=== PATIENT | male | born 1945 | race Caucasian/White ===

== ENCOUNTER → 2020-04-11 15:07 | Outpatient (CLI) | payer OTHER, SELFPAY ==
[2020-04-11 17:33] LABS: BUN Creatinine Ratio 18.8 (6-22); Blood Urea Nitrogen 22 mg/dL (9-20); Calcium 9.7 mg/dL (8.4-10.2); Carbon Dioxide 28 mmol/L (22-32); Chloride 104 mmol/L (98-107); Estimated Glomerular Filt Rate > 60.0 mL/min (>60); Glucose 99 mg/dL (80-110); HEMOLYSIS < 15 (0-50); Potassium 4.6 mmol/L (3.4-5.1); Sodium 138 mmol/L (137-145)
== END ==
PROVIDERS: Family Provider Family Medicine; PCP Family Medicine
DX: C43.9 Malignant melanoma of skin, unspecified (principal)
CPT/HCPCS: 36415; 80048

== ENCOUNTER 2020-10-12 10:53 | Inpatient (IN) | payer OTHER, MEDICARE, SELFPAY ==
[2020-10-12] VITALS (19 sets, daily range): BP systolic 103–136; BP diastolic 57–73; PULSE 78–94; RESP 8–24; TEMP 36.7; O2SAT 94–100; BMI 28.7
[2020-10-12 11:33] LABS: Add Manual Diff / Slide Review NO; Basophils Absolute Auto 0 /uL (0-100); Basophils Percent Auto 0.3 % (0-2); Eosinophils Absolute Auto 0 /uL (0-450); Eosinophils Percent Auto 0.4 % (2-4); Hematocrit 30.7 % (41-53); Hemoglobin 10.2 g/dL (13.5-17.5); Lymphocytes Absolute Auto 1200 /uL (1100-4500); Lymphocytes Percent Auto 14.3 % (25-40); Mean Corpuscular HGB Conc 33.3 % (30-36); Mean Corpuscular Hemoglobin 29.7 PG (26-34); Mean Corpuscular Volume 89.3 fL (80-100); Monocytes Absolute Auto 1000 /uL (0-900); Monocytes Percent Auto 11.9 % (3-14); Neutrophils Absolute Auto 6300 /uL (1500-7000); Neutrophils Percent Auto 73.1 % (50-75); Platelet Count 297 X10^3/uL (150-400); Red Blood Cell Count 3.44 X10^6/uL (4.5-5.9); White Blood Cell Count 8.7 X10^3/uL (4.5-11.0)
--- NOTE | 2020-10-12 11:34 | ED_ITS ---
HPI - GI Bleed General Chief complaint: GI Bleed Stated complaint: stool dark/blood in it Time Seen by Provider: 10/12/20 11:26 Source: patient Mode of arrival: Ambulatory Limitations: no limitations History of Present Illness HPI Narrative: Patient is a 75-year-old male with history of metastatic melanoma currently on immunotherapy in followed by [facility]. Apparently he has been on this immunotherapy for about 2 years, this particular therapy can cause colitis and GI bleeding. This morning at about midnight he had a very large bloody bowel movement. He said that he has had a couple since then but they have tapered off. He denies any abdominal pain dizziness. He is a little short of breath with exertion. He has no chest pain. MD complaint: gross hematochezia Onset (ago): hour(s) Severity: moderate Relieving factors: none Exacerbating factors: none Related Data Home Medications Medication Instructions Recorded Confirmed naproxen sodium [Aleve] 220 mg PO PRN #0 02/12/11 10/12/20 aspirin 81 mg tablet,delayed 81 mg PO DAILY 10/11/20 10/12/20 release cevimeline 30 mg capsule 1 cap PO TID cap 10/11/20 10/12/20 fluoride (sodium) 1.1 % dental gel 1 applic PO BEDTIME g 10/11/20 10/12/20 levothyroxine 125 mcg tablet 125 mcg PO DAILY 10/11/20 10/12/20 Previous Rx's Medication Instructions Recorded atorvastatin 10 mg tablet 10 mg PO HS #30 tab 09/30/20 Allergies Allergy/AdvReac Type Severity Reaction Status Date / Time No Known Drug Allergies Allergy Verified 10/12/20 11:04 Review of Systems Review of Systems ROS Unobtainable: All systems reviewed & are unremarkable except as noted in HPI and below Constitutional Constitutional: Denies chills, Denies fever(s), Denies lethargy and Denies weakness Cardiovascular Cardiovascular: Denies chest pain, Denies irregular heart rhythm, Denies lightheadedness, Denies palpitations, Reports dyspnea on exertion and Denies orthopnea Respiratory Respiratory: Denies cough, Denies hemoptysis and Reports dyspnea on exertion Gastrointestinal Gastrointestinal: Denies abdominal pain, Denies change in bowel habits, Denies diarrhea, Denies nausea and Denies vomiting Musculoskeletal Musculoskeletal: Denies as per HPI and Denies back pain Integumentary/Breasts Skin/Breast: Denies pruritus, Denies erythema, Denies rash and Denies wounds Neurologic Neurologic: Denies abnormal movements and Denies weakness Endocrine Endocrine: Denies palpitations 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) 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) Melanoma Mixed hyperlipidemia (08/14/15) Surgical History H/O melanoma excision Social History household members: spouse Smoking Status: Former smoker alcohol intake: never Smoking Status: Former smoker alcohol intake frequency: holidays/special occasions only Substance Use Type: does not use Exam Initial Vital Signs Initial Vital Signs: Vital Signs Temperature 98.1 F 10/12/20 11:00 Pulse Rate 87 10/12/20 11:00 Respiratory Rate 12 10/12/20 11:00 Blood Pressure 120/66 10/12/20 11:00 Pulse Oximetry 100 10/12/20 11:00 GENERAL: Alert pleasant 75-year-old male and in no acute distress. HEENT: Head atraumatic,EOMI, pupils reactive, face symmetric, moist mucous membranes CARDIOVASCULAR: Regular rate and rhythm without murmurs, rubs or gallops. RESPIRATORY: Breath sounds equal bilaterally, no wheezes rales or rhonchi. ABDOMEN: Soft, nontender. Normoactive bowel sounds all 4 quadrants. No guarding or rebound. RECTAL: Hemoccult-positive gross blood on exam : No CVA tenderness EXTREMITIES: Normal range of motion, no clubbing or edema. Neurovascularly intact NEUROLOGICAL: Alert and oriented x4.Normal gait and speech. SKIN: Warm, dry, no laceration, no petechiae, no rashes or lesions. Course Orders Ordered: ED Orders 10/12/20 11:03 EKG-12 Lead Stat 10/12/20 11:20 Complete Blood Count AUTO DIFF Stat Comprehensive Metabolic Panel Stat Lactate (Lactic Acid) Stat Partial Thromboplastin Time Stat Prothrombin Time INR Stat 10/12/20 12:35 COVID19 - ADMIT (QUALITY ASSURANCE REPRESENTATIVE swab/PCR) Stat Acetaminophen (Acetaminophen 325 Mg Tablet) 650 mg PO Q6HR PRN PRN Reason: Fever/Mild Pain (1-3) Levothyroxine Sodium (Levothyroxine 125 Mcg Tablet) 125 mcg PO DAILY SHANNON Melatonin (Melatonin 3 Mg Tablet) 3 mg PO BEDTIME PRN PRN Reason: sleep Naloxone HCl (Naloxone 0.4 Mg/Ml Vial) 0.2 mg IV Q2MIN PRN PRN Reason: Opiate Reversal Non-Formulary Medication (Atorvastatin [Lipitor]) 10 mg PO HS SHANNON Non-Formulary Medication (Cevimeline) 1 cap PO TID SHANNON Oxycodone HCl (Oxycodone Ir 5 Mg Tablet) 5 mg PO Q6HR PRN PRN Reason: Pain, Moderate (4-6) Discontinued Medications Melatonin (Melatonin 3 Mg Tablet) 3 mg PO BEDTIME PRN PRN Reason: Sleep Pantoprazole Sodium (Pantoprazole 40 Mg Vial) 40 mg IV NOW ONE Stop: 10/12/20 12:23 Last Admin: 10/12/20 12:36 Dose: 40 mg Documented by: DAQUAN Vital Signs Vital signs: Vital Signs - 8 hr 10/12/20 11:00 10/12/20 11:02 10/12/20 11:25 Temperature 98.1 F Pulse Rate 87 86 85 Respiratory Rate 12 8 L 11 L Blood Pressure 120/66 136/69 Pulse Oximetry 100 100 99 10/12/20 11:30 10/12/20 12:00 10/12/20 12:30 Temperature Pulse Rate 91 H 85 83 Respiratory Rate 22 16 Blood Pressure 135/73 110/60 Pulse Oximetry 99 99 98 10/12/20 12:41 10/12/20 13:00 Temperature Pulse Rate 82 84 Respiratory Rate Blood Pressure 114/65 112/57 L Pulse Oximetry 100 97 MDM - GI Bleed Lab Data Attestation: I reviewed the patient's lab results. Result diagrams: 10/12/20 11:20 10/12/20 11:20 Labs: Lab Results 10/12/20 10/12/20 10/12/20 Range/Units 11:20 11:20 11:20 WBC 8.7 (4.5-11.0) X10^3/uL RBC 3.44 L (4.5-5.9) X10^6/uL Hgb 10.2 L (13.5-17.5) g/dL Hct 30.7 L (41-53) % MCV 89.3 (80-100) fL MCH 29.7 (26-34) PG MCHC 33.3 (30-36) % RDW 14.0 (11.6-14.8) % Plt Count 297 (150-400) X10^3/uL Neut % (Auto) 73.1 (50-75) % Lymph % (Auto) 14.3 L (25-40) % [place] % (Auto) 11.9 (3-14) % Eos % (Auto) 0.4 L (2-4) % Baso % (Auto) 0.3 (0-2) % Neut # (Auto) 6300 (9696-1644) /uL Lymph # (Auto) 1200 (1408-6933) /uL [place] # (Auto) 1000 H (0-900) /uL Eos # (Auto) 0 (0-450) /uL Baso # (Auto) 0 (0-100) /uL PT 12.3 (10.1-12.7) SECONDS INR 1.1 (0.9-1.3) APTT 29 (26.4-36.2) SECONDS Sodium 140 (137-145) mmol/L Potassium 4.5 (3.4-5.1) mmol/L Chloride 111 H (98-107) mmol/L Carbon Dioxide 22 (22-32) mmol/L BUN 33 H (9-20) mg/dL Creatinine 1.11 (0.66-1.25) mg/dL Estimated GFR > 60.0 (>60) mL/min BUN/Creatinine Ratio 29.7 H (6-22) Glucose 139 H (80-110) mg/dL Lactate (0.7-2.1) mmol/L Calcium 8.3 L (8.4-10.2) mg/dL Total Bilirubin 0.1 L (0.2-1.3) mg/dL AST 15 L (17-59) IU/L ALT 11 (<50) IU/L Alkaline Phosphatase 78 (38-126) U/L Total Protein 5.8 L (6.3-8.2) g/dL Albumin 3.2 L (3.5-5.0) g/dL Globulin 2.6 (1.7-4.1) g/dL Albumin/Globulin Ratio 1.2 (1.0-2.8) SARS-CoV-2 (PCR) (Negative) 10/12/20 10/12/20 Range/Units 11:20 12:35 WBC (4.5-11.0) X10^3/uL RBC (4.5-5.9) X10^6/uL Hgb (13.5-17.5) g/dL Hct (41-53) % MCV (80-100) fL MCH (26-34) PG MCHC (30-36) % RDW (11.6-14.8) % Plt Count (150-400) X10^3/uL Neut % (Auto) (50-75) % Lymph % (Auto) (25-40) % [place] % (Auto) (3-14) % Eos % (Auto) (2-4) % Baso % (Auto) (0-2) % Neut # (Auto) (0872-9014) /uL Lymph # (Auto) (2099-5551) /uL [place] # (Auto) (0-900) /uL Eos # (Auto) (0-450) /uL Baso # (Auto) (0-100) /uL PT (10.1-12.7) SECONDS INR (0.9-1.3) APTT (26.4-36.2) SECONDS Sodium (137-145) mmol/L Potassium (3.4-5.1) mmol/L Chloride (98-107) mmol/L Carbon Dioxide (22-32) mmol/L BUN (9-20) mg/dL Creatinine (0.66-1.25) mg/dL Estimated GFR (>60) mL/min BUN/Creatinine Ratio (6-22) Glucose (80-110) mg/dL Lactate 1.2 (0.7-2.1) mmol/L Calcium (8.4-10.2) mg/dL Total Bilirubin (0.2-1.3) mg/dL AST (17-59) IU/L ALT (<50) IU/L Alkaline Phosphatase (38-126) U/L Total Protein (6.3-8.2) g/dL Albumin (3.5-5.0) g/dL Globulin (1.7-4.1) g/dL Albumin/Globulin Ratio (1.0-2.8) SARS-CoV-2 (PCR) Negative (Negative) Urine Dip Bedside Urine Glucose Negative Bedside Urine Bilirubin ++ 2 Bedside Urine Ketone - Negative Urine Specific [place] 1.030 Bedside Urine Occult Blood - Negative Bedside Urine pH 6.0 Bedside Urine Protein - Negative Bedside Urine Urobilinogen - Negative Bedside Urine Nitrite - Negative Bedside Urine Leukocytes - Negative Esterase Imaging Data CT scan - abdomen/pelvis: Radiologist's Impression: PROCEDURE: CT ABDOMEN PELVIS W CON INDICATIONS: gi bleed TECHNIQUE: After the administration of intravenous contrast, 5 mm thick sections acquired from the diaphragm to the symphysis. 5 mm coronal and sagittal reformats were acquired. For radiation dose reduction, the following was used: automated exposure control, adjustment of mA and/or kV according to patient size. COMPARISON: None. FINDINGS: Image quality: Excellent. ABDOMEN: Lung bases: Mild bibasilar dependent atelectasis is seen. Heart size is mildly enlarged, no pericardial effusion. Solid organs: Liver is normal in size . Subtle 5 millimeter hypodensity involving left hepatic lobe series 2, image 28 and is too small to characterize. Mild hepatic steatosis is seen. Gallbladder is within normal limits. Biliary system is non dilated. Pancreas enhances normally. Spleen is normal in size and enhancement. There is suggestion of a 1.7 x 1.1 cm left adrenal nodule series 2, image 36. No right adrenal nodules. Kidneys demonstrate normal size and enhancement, without hydronephrosis. Tiny 3 millimeter nonobstructing stone in midpole of left kidney is seen. Peritoneum and bowel: There is no bowel obstruction. No gastric or small bowel wall thickening. Appendix is visualized and is within normal limits. Ascending, transverse and descending colon show normal wall thickness. There is mild diffuse sigmoid colon wall thickening which may be due to under distension. Low-grade sigmoid colitis cannot be excluded. No CT evidence of diverticulitis. No abscess collection. Nodes and vessels: No retroperitoneal or mesenteric adenopathy by size criteria. Aorta and inferior vena cava are normal in size. Moderate atherosclerotic calcifications are noted in abdominal aorta. Miscellaneous: No ventral hernias. PELVIS: Genitourinary: Bladder wall thickness is normal. Miscellaneous: Right inguinal hernia is seen containing fat only. No inguinal lymphadenopathy. Bones: No suspicious bony lesions. No vertebral body compression fractures. IMPRESSION: 1. Questionable mild diffuse sigmoid colon wall thickening which may be due to under distension. Low-grade sigmoid colitis cannot be excluded. No CT evidence of acute diverticulitis. Normal appendix. No bowel obstruction. No abscess collection. No free fluid or free air. 2. 1.7 x 1.1 centimeter left adrenal nodule which may represent adrenal adenoma. 3. 5 millimeter hypodensity involving left hepatic lobe and is too small to yissel racterize, most likely represent benign process such as cyst or hemangioma. Mild hepatic steatosis. 4. Tiny nonobstructing left renal calculus. No hydronephrosis. Dictated by: Chaparro Barnett M.D. on 10/12/2020 at 16:53 MDM Narrative Medical decision making narrative: 12:22pm-Dr. Black surgery updated patient's symptoms test results initially accepted if medicine was okay 1245pm Dr. Gracia updated on patient's symptoms and test results concerned for immunotherapy induced colitis. 1600-Dr. Baird Hematology-Oncology at [facility] has been updated patient's symptoms test results and review chart himself. At this time he does not believe this rectal bleeding to be immunotherapy induced. Typically immunotherapy induced colitis starts with episodes of diarrhea in severe pain. He says he often even see colitis on CT. He says grade drawn colitis which is less than 4 bowel movements in 1 day is treated with supportive care. Grade 2 which is more than 4 bowel movements in 24 hours can be treated with steroids 1 milligram/kilogram. However at this time patient does not have any of the symptoms and does not need to be transferred. 1700 Dr. Black updated on Hematology-Oncology recommendations and agrees for colonoscopy and recommends bowel prepping 1715 Dr. Gracia updated on recommendations and agrees to admission At this time patient has continues to be asymptomatic he has been in the emergency department for close to 7 hours without any further episodes of rectal bleeding. He is hemodynamically stable. He continues to have no abdominal pain. CT is added there is no evidence of colitis on the CT. At this time patient will be admitted for GI bleed Discharge Plan Departure Patient Disposition: Admitted as Observation Clinical Impression: Acute GI bleeding Admit Date/Time: 10/12/20 13:04 Admit Provider: Josef Gracia
[2020-10-12 11:48] LABS: INR 1.1 (0.9-1.3); Prothrombin Time 12.3 SECONDS (10.1-12.7)
[2020-10-12 11:51] LABS: PTT Partial Thromboplastin Tim 29 SECONDS (26.4-36.2)
[2020-10-12 11:56] LABS: Alanine Aminotransferase 11 IU/L (<50); Albumin 3.2 g/dL (3.5-5.0); Albumin Globulin Ratio 1.2 (1.0-2.8); Alkaline Phosphatase 78 U/L (38-126); Aspartate Aminotransferase 15 IU/L (17-59); BUN Creatinine Ratio 29.7 (6-22); Bilirubin Total 0.1 mg/dL (0.2-1.3); Blood Urea Nitrogen 33 mg/dL (9-20); Calcium 8.3 mg/dL (8.4-10.2); Carbon Dioxide 22 mmol/L (22-32); Chloride 111 mmol/L (98-107); Estimated Glomerular Filt Rate > 60.0 mL/min (>60); Globulin 2.6 g/dL (1.7-4.1); Glucose 139 mg/dL (80-110); HEMOLYSIS < 15 (0-50); Potassium 4.5 mmol/L (3.4-5.1); Sodium 140 mmol/L (137-145); Total Protein 5.8 g/dL (6.3-8.2)
[2020-10-12 11:57] LABS: Lactate (Lactic Acid) 1.2 mmol/L (0.7-2.1)
[2020-10-12] MEDS: PANTOPRAZOLE 40 MG VIAL IV (12:36)
[2020-10-12 14:02] LABS: COVID19 - ADMIT (NP swab/PCR) Negative (Negative)
--- NOTE | 2020-10-12 16:05 | DI.CT.S_ITS ---
PROCEDURE: CT ABDOMEN PELVIS W CON INDICATIONS: gi bleed TECHNIQUE: After the administration of intravenous contrast, 5 mm thick sections acquired from the diaphragm to the symphysis. 5 mm coronal and sagittal reformats were acquired. For radiation dose reduction, the following was used: automated exposure control, adjustment of mA and/or kV according to patient size. COMPARISON: None. FINDINGS: Image quality: Excellent. ABDOMEN: Lung bases: Mild bibasilar dependent atelectasis is seen. Heart size is mildly enlarged, no pericardial effusion. Solid organs: Liver is normal in size . Subtle 5 millimeter hypodensity involving left hepatic lobe series 2, image 28 and is too small to characterize. Mild hepatic steatosis is seen. Gallbladder is within normal limits. Biliary system is non dilated. Pancreas enhances normally. Spleen is normal in size and enhancement. There is suggestion of a 1.7 x 1.1 cm left adrenal nodule series 2, image 36. No right adrenal nodules. Kidneys demonstrate normal size and enhancement, without hydronephrosis. Tiny 3 millimeter nonobstructing stone in midpole of left kidney is seen. Peritoneum and bowel: There is no bowel obstruction. No gastric or small bowel wall thickening. Appendix is visualized and is within normal limits. Ascending, transverse and descending colon show normal wall thickness. There is mild diffuse sigmoid colon wall thickening which may be due to under distension. Low-grade sigmoid colitis cannot be excluded. No CT evidence of diverticulitis. No abscess collection. Nodes and vessels: No retroperitoneal or mesenteric adenopathy by size criteria. Aorta and inferior vena cava are normal in size. Moderate atherosclerotic calcifications are noted in abdominal aorta. Miscellaneous: No ventral hernias. PELVIS: Genitourinary: Bladder wall thickness is normal. Miscellaneous: Right inguinal hernia is seen containing fat only. No inguinal lymphadenopathy. Bones: No suspicious bony lesions. No vertebral body compression fractures. IMPRESSION: 1. Questionable mild diffuse sigmoid colon wall thickening which may be due to under distension. Low-grade sigmoid colitis cannot be excluded. No CT evidence of acute diverticulitis. Normal appendix. No bowel obstruction. No abscess collection. No free fluid or free air. 2. 1.7 x 1.1 centimeter left adrenal nodule which may represent adrenal adenoma. 3. 5 millimeter hypodensity involving left hepatic lobe and is too small to characterize, most likely represent benign process such as cyst or hemangioma. Mild hepatic steatosis. 4. Tiny nonobstructing left renal calculus. No hydronephrosis. Dictated by: Chaparro Barnett M.D. on 10/12/2020 at 16:53 Approved by: Chaparro Barnett M.D. on 10/12/2020 at 16:57
--- NOTE | 2020-10-12 17:48 | P.HP_ITS ---
History of Present Illness History of Present Illness Date Patient Seen: 10/12/20 Time Patient Seen: 18:53 Chief complaint: stool dark/blood in it Narrative: 75-year-old male metastatic melanoma lymphoma history hyperlipidemia hypothyroidism presents to the emergency department with acute gastrointestinal bleeding. Patient states he has never had rectal bleeding before in his entire life. Last night in the evening. He had a bowel movement with dark bloody sto ols. He says it is quite a lot. Had a number of more throughout the evening at about 1:00 a.m. they seem to stop. He says he became a little bit tell. Since then he has been a little bit lightheaded when he stands up. He was concerned enough that he came to the emergency department. Says the bleeding was painless. He thought maybe was is livers kidneys. He was not sure what was going on. Patient states that he is not associated with pain with it. He is not nauseated. Patient does not have heartburn. He does not take regular anti- inflammatories such as aspirin ibuprofen Motrin early. Patient takes a baby aspirin a day. Patient said the bleeding was associated with the diarrhea as well. Had no fevers or chills. Other than feeling weak with standing he has had no chest pain or shortness of breath. Patient states his last colonoscopy was 10 or 12 years ago had 1 scheduled but then got diagnosed with melanoma and postponed. He has never had an upper endoscopy. He says he does not take antacids on a regular basis. He is on a monoclonal antibody for treatment of his melanoma which is an infusion Nivolumab. He did mention that maybe this is causes colitis. On looking this medication up I do not see this listed as 1 of the serious side effects of it. Reviewed his emergency room course CT scans and laboratory tests he does not have a fever and he does not have a white blood cell count. He has mild sigmoid thickening. Which may be consistent more with colitis. 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) 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) Melanoma Mixed hyperlipidemia (08/14/15) Surgical History H/O melanoma excision Family & Social History Safety & Behavioral: Feels Safe in Current Yes Environment Been Physically Hurt or No Threatened By a Person Tobacco & Substance use: Smoking Status Former smoker alcohol intake frequency holiday/special occasion Substance Use Type does not use Meds Home Medications and Allergies Home Medications Medication Instructions Recorded Confirmed Type naproxen sodium [Aleve] 220 mg PO PRN #0 02/12/11 10/12/20 History atorvastatin 10 mg tablet 10 mg PO HS #30 tab 09/30/20 10/12/20 Rx aspirin 81 mg tablet,delayed 81 mg PO DAILY 10/11/20 10/12/20 History release cevimeline 30 mg capsule 1 cap PO TID cap 10/11/20 10/12/20 History fluoride (sodium) 1.1 % dental gel 1 applic PO BEDTIME g 10/11/20 10/12/20 History levothyroxine 125 mcg tablet 125 mcg PO DAILY 10/11/20 10/12/20 History Allergies Allergy/AdvReac Type Severity Reaction Status Date / Time No Known Drug Allergies Allergy Verified 10/12/20 11:04 Exam Vital Signs (past 8 hours): - 10/12/20 11:00 10/12/20 11:02 10/12/20 11:25 Temperature 98.1 F Pulse Rate 87 86 85 Respiratory Rate 12 8 L 11 L Blood Pressure 120/66 136/69 Pulse Oximetry 100 100 99 10/12/20 11:30 10/12/20 12:00 10/12/20 12:30 Temperature Pulse Rate 91 H 85 83 Respiratory Rate 22 16 Blood Pressure 135/73 110/60 Pulse Oximetry 99 99 98 10/12/20 12:41 10/12/20 13:00 10/12/20 13:30 Temperature Pulse Rate 82 84 86 Respiratory Rate 24 Blood Pressure 114/65 112/57 L 121/65 Pulse Oximetry 100 97 94 10/12/20 14:00 10/12/20 14:30 10/12/20 15:00 Temperature Pulse Rate 80 79 78 Respiratory Rate 17 20 Blood Pressure 123/64 103/59 L Pulse Oximetry 99 99 94 10/12/20 15:30 10/12/20 16:00 10/12/20 16:30 Temperature Pulse Rate 86 87 90 Respiratory Rate 21 21 13 Blood Pressure 115/59 L 116/57 L Pulse Oximetry 95 96 99 10/12/20 17:00 Temperature Pulse Rate 92 H Respiratory Rate Blood Pressure Pulse Oximetry 97 Oxygen Delivery Method Room Air Narrative Exam Narrative: Gen.: Alert good historian he is somewhat pale looking HEENT: Pupils equal round and reactive or mucosa is moist Cardio: S1-S2 regular rate and rhythm Respiratory: Normal respiratory effort her lungs are clear Abdomen: Soft nontender no rebound or guarding no liver spleen enlargement no appreciable hernias Extremities: Full range of motion no appreciable weakness no cyanosis or edema. Neurologic: Grossly intact. Objective Labs Result Diagrams: 10/12/20 11:20 10/12/20 11:20 Labs: Laboratory Results - last 24 hr 10/12/20 10/12/20 10/12/20 11:20 11:20 11:20 WBC 8.7 RBC 3.44 L Hgb 10.2 L Hct 30.7 L MCV 89.3 MCH 29.7 MCHC 33.3 RDW 14.0 Plt Count 297 Neut % (Auto) 73.1 Lymph % (Auto) 14.3 L [place] % (Auto) 11.9 Eos % (Auto) 0.4 L Baso % (Auto) 0.3 Neut # (Auto) 6300 Lymph # (Auto) 1200 [place] # (Auto) 1000 H Eos # (Auto) 0 Baso # (Auto) 0 PT 12.3 INR 1.1 APTT 29 Sodium 140 Potassium 4.5 Chloride 111 H Carbon Dioxide 22 BUN 33 H Creatinine 1.11 Estimated GFR > 60.0 BUN/Creatinine Ratio 29.7 H Glucose 139 H Lactate Calcium 8.3 L Total Bilirubin 0.1 L AST 15 L ALT 11 Alkaline Phosphatase 78 Total Protein 5.8 L Albumin 3.2 L Globulin 2.6 Albumin/Globulin Ratio 1.2 SARS-CoV-2 (PCR) 10/12/20 10/12/20 11:20 12:35 WBC RBC Hgb Hct MCV MCH MCHC RDW Plt Count Neut % (Auto) Lymph % (Auto) [place] % (Auto) Eos % (Auto) Baso % (Auto) Neut # (Auto) Lymph # (Auto) [place] # (Auto) Eos # (Auto) Baso # (Auto) PT INR APTT Sodium Potassium Chloride Carbon Dioxide BUN Creatinine Estimated GFR BUN/Creatinine Ratio Glucose Lactate 1.2 Calcium Total Bilirubin AST ALT Alkaline Phosphatase Total Protein Albumin Globulin Albumin/Globulin Ratio SARS-CoV-2 (PCR) Negative Assessment & Plan Assessment & Plan narrative: Acute gastrointestinal bleed. Patient with thick dark red gastrointestinal blood. He is mildly anemic. Unsure etiology at this point clear liquid diet. Surgical consultation for evaluation with potential EGD and colonoscopy. He has thickening mildly on his colon. I would like to do stool culture O and P and GI panel to rule out infectious etiologies he does not have a white blood cell count or fever. Certainly could be a side effect from his monoclonal antibody treatment for his metastatic melanoma although I have not reading this on the side effect profile. He will be placed on a clear liquid diet. He will have hemoglobin hematocrit checked regularly. He will be typed and screened. We will continue to monitor closely his vitals and worsening of his gastrointestinal bleeding. Acute blood loss anemia. Patient hemoglobin hematocrit is low. He has not had further bleeding since evaluation in the emergency department for about 8 hours. Check hemoglobin hematocrit. Type and screen. He is mildly symptomatic with some lightheadedness. Metastatic melanoma. On immunotherapy. Hyperlipidemia. Patient is currently on a statin we will continue statin medication. Hypothyroidism. Patient will be continued on his thyroid medication. Prophylactic. Patient will be and DVT prophylaxis with SCDs.
[2020-10-12] MEDS: ATORVASTATIN 20 MG TABLET 10 MG PO (20:43)
[2020-10-13] VITALS (15 sets, daily range): BP systolic 101–146; BP diastolic 40–92; PULSE 71–97; RESP 12–22; TEMP 36.1–37; O2SAT 90–98
--- NOTE | 2020-10-13 | PATH_ITS ---
[facility] Accession Number: [id number] . 01 Material submitted: . gastrointestinal site - GASTRIC BIOPSY . 01 Clinical history: . A: R/O H.PYLORI . 02 Diagnosis: Gastric Biopsy: Portions of gastric antral mucosa with chronic gastritis. Negative for Helicobacter organisms by immunohistochemistry. Negative for intestinal metaplasia. Negative for dysplasia and malignancy. MRV 10/18/2020 1232 Local . 02 Electronically signed: . Abby Chiang MD, Pathologist NPI- [id number] . 01 Gross description: . GASTRIC BIOPSY: Received in formalin are 2 fragment(s) of avila, soft tissue measuring 0.2 x 0.2 x 0.2 cm to 0.4 x 0.2 x 0.2 cm submitted entirely in 1 cassette(s) /ENDY 10/15/2020 1931 Local . 02 Microscopic: . An immunohistochemical stain was performed to evaluate for Helicobacter organisms and is negative. The control stain showed appropriate reactivity. . * This test was developed and its performance characteristics determined by [facility]. It has not been cleared or approved by the U.S. Food and Drug Administration. The FDA has determined that such clearance or approval is not necessary. This test is used for clinical purposes. It should not be regarded as investigational or for research. . 02 Pathologist provided ICD-10: K29.70 . 02 CPT . 971334, [id number] Performed at: 01 [facility] [address] [facility], [place], [place] [id number] MD Clark Baez MD Phone: [phone] Performed at: 02 [facility] [place] [address] [place], [place] [id number] MD Ayse Lowery MD Phone: [phone]
--- NOTE | 2020-10-13 00:44 | PC.NURSE ---
patient is alert and oriented. Breath sounds CTA with RA sat of 96% and denies SOB. HRR w/murmur. Telemetry reading was SR w/BBB. Denies nausea. BT present and abdomen is soft and non tender; has had no bleeding/stools since admission to floor. Denies dysuria, frequency or urgency with urination. Is able to turn self in bed. Denies weakness when out of bed but does state he has felt dizzy/lightheaded when up so verbalizes agreement to call for assistance when needing to get out of bed; evening RN reports compliance with using call light for assist. Denies pain. Wearing bilateral calf SCD's. Informed that Dr Black called earlier and plan is to start Go-Lytely prep at 0400 and will be NPO except for bowel prep at that time in anticipation of scope later today; patient verbalizes understanding. Fall risk score is moderate.
[2020-10-13] MEDS: PEG3350/SOD SULF,BICARB,CL/KCL 4,000 ML SOLUTION 3000 ML PO (04:00)
[2020-10-13 05:10] LABS: Add Manual Diff / Slide Review NO; Basophils Absolute Auto 0 /uL (0-100); Basophils Percent Auto 0.6 % (0-2); Eosinophils Absolute Auto 200 /uL (0-450); Eosinophils Percent Auto 2.5 % (2-4); Hematocrit 27.8 % (41-53); Hemoglobin 9.3 g/dL (13.5-17.5); Lymphocytes Absolute Auto 1600 /uL (1100-4500); Lymphocytes Percent Auto 20.8 % (25-40); Mean Corpuscular HGB Conc 33.4 % (30-36); Mean Corpuscular Hemoglobin 29.9 PG (26-34); Mean Corpuscular Volume 89.4 fL (80-100); Monocytes Absolute Auto 1000 /uL (0-900); Monocytes Percent Auto 13.4 % (3-14); Neutrophils Absolute Auto 4900 /uL (1500-7000); Neutrophils Percent Auto 62.7 % (50-75); Platelet Count 267 X10^3/uL (150-400); Red Cell Distribution Width 14.4 % (11.6-14.8); White Blood Cell Count 7.8 X10^3/uL (4.5-11.0)
[2020-10-13 05:38] LABS: BUN Creatinine Ratio 29.1 (6-22); Blood Urea Nitrogen 30 mg/dL (9-20); Calcium 8.4 mg/dL (8.4-10.2); Carbon Dioxide 23 mmol/L (22-32); Chloride 110 mmol/L (98-107); Estimated Glomerular Filt Rate > 60.0 mL/min (>60); Glucose 123 mg/dL (80-110); HEMOLYSIS < 15 (0-50); Potassium 4.4 mmol/L (3.4-5.1); Sodium 139 mmol/L (137-145)
--- NOTE | 2020-10-13 07:50 | P.HP_ITS ---
History of Present Illness History of Present Illness Date Patient Seen: 10/13/20 Time Patient Seen: 07:53 Chief complaint: stool dark/blood in it Narrative: The patient is a gentleman here with rectal bleeding. He has been passing brown stool with blood in it. It is dark in color but not melanotic (black). He has no abdominal pain. He describes passing what looks like red velvet cake this morning with bowel prep. No prior history of these problems. He is on an immunotherapy for metastatic melanoma which involves his chest at least. He is not sure all the places that is metastatic to. He said he had a good response but has a new spot that appeared but he does not remember where. 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) 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) Melanoma Mixed hyperlipidemia (08/14/15) Surgical History H/O melanoma excision Family & Social History Social History: household members spouse Prior Living Arrangements House Safety & Behavioral: Feels Safe in Current Yes Environment Been Physically Hurt or No Threatened By a Person Suicidal Ideation Description None Suicide Plan Description No Plan Tobacco & Substance use: Smoking Status Former smoker alcohol intake never alcohol intake frequency holiday/special occasion Substance Use Type does not use Meds Home Medications and Allergies Home Medications Medication Instructions Recorded Confirmed Type naproxen sodium [Aleve] 220 mg PO PRN #0 02/12/11 10/12/20 History atorvastatin 10 mg tablet 10 mg PO HS #30 tab 09/30/20 10/12/20 Rx aspirin 81 mg tablet,delayed 81 mg PO DAILY 10/11/20 10/12/20 History release cevimeline 30 mg capsule 1 cap PO TID cap 10/11/20 10/12/20 History fluoride (sodium) 1.1 % dental gel 1 applic PO BEDTIME g 10/11/20 10/12/20 History levothyroxine 125 mcg tablet 125 mcg PO DAILY 10/11/20 10/12/20 History Allergies Allergy/AdvReac Type Severity Reaction Status Date / Time No Known Drug Allergies Allergy Verified 10/12/20 11:04 Review of Systems Review of Systems Narrative: No cough cold or asthma. No chest pain or heart problems. No black bowel movements. No hematemesis. No seizures or blackouts. Probably been 20 years since his last colonoscopy. Exam Vital Signs (past 8 hours): - 10/13/20 00:13 10/13/20 04:24 Temperature 98.4 F 97.0 F L Pulse Rate 91 H 80 Respiratory Rate 18 18 Blood Pressure 110/55 L 120/59 L Pulse Oximetry 96 98 Oxygen Delivery Method Room Air Oxygen Flow Rate 0 Narrative Exam Narrative: Cooperative in no apparent distress. Eyes are nonicteric. Oral mucosa is pink little dry no open lesions. Teeth are intact. I do not feel any nodes in the neck or supraclavicular areas. Lungs are clear to auscultation without rales or rhonchi. Heart regular rate and rhythm. He has a 3/6 systolic murmur heard well at the base. No heave lift or thrill. 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 No palpable masses. Patient is alert and oriented x3. Speech rate and content are appropriate. Affect is appropriate. Objective Labs Result Diagrams: 10/13/20 04:52 10/13/20 04:52 Labs: Laboratory Results - last 24 hr 10/12/20 10/12/20 10/12/20 11:20 11:20 11:20 WBC 8.7 RBC 3.44 L Hgb 10.2 L Hct 30.7 L MCV 89.3 MCH 29.7 MCHC 33.3 RDW 14.0 Plt Count 297 Neut % (Auto) 73.1 Lymph % (Auto) 14.3 L [place] % (Auto) 11.9 Eos % (Auto) 0.4 L Baso % (Auto) 0.3 Neut # (Auto) 6300 Lymph # (Auto) 1200 [place] # (Auto) 1000 H Eos # (Auto) 0 Baso # (Auto) 0 PT 12.3 INR 1.1 APTT 29 Sodium 140 Potassium 4.5 Chloride 111 H Carbon Dioxide 22 BUN 33 H Creatinine 1.11 Estimated GFR > 60.0 BUN/Creatinine Ratio 29.7 H Glucose 139 H Lactate Calcium 8.3 L Total Bilirubin 0.1 L AST 15 L ALT 11 Alkaline Phosphatase 78 Total Protein 5.8 L Albumin 3.2 L Globulin 2.6 Albumin/Globulin Ratio 1.2 SARS-CoV-2 (PCR) Blood Type Antibody Screen 10/12/20 10/12/20 10/12/20 11:20 11:20 12:35 WBC RBC Hgb Hct MCV MCH MCHC RDW Plt Count Neut % (Auto) Lymph % (Auto) [place] % (Auto) Eos % (Auto) Baso % (Auto) Neut # (Auto) Lymph # (Auto) [place] # (Auto) Eos # (Auto) Baso # (Auto) PT INR APTT Sodium Potassium Chloride Carbon Dioxide BUN Creatinine Estimated GFR BUN/Creatinine Ratio Glucose Lactate 1.2 Calcium Total Bilirubin AST ALT Alkaline Phosphatase Total Protein Albumin Globulin Albumin/Globulin Ratio SARS-CoV-2 (PCR) Negative Blood Type B Positive Antibody Screen Negative 10/13/20 10/13/20 04:52 04:52 WBC 7.8 RBC 3.10 L Hgb 9.3 L Hct 27.8 L MCV 89.4 MCH 29.9 MCHC 33.4 RDW 14.4 Plt Count 267 Neut % (Auto) 62.7 Lymph % (Auto) 20.8 L [place] % (Auto) 13.4 Eos % (Auto) 2.5 Baso % (Auto) 0.6 Neut # (Auto) 4900 Lymph # (Auto) 1600 [place] # (Auto) 1000 H Eos # (Auto) 200 Baso # (Auto) 0 PT INR APTT Sodium 139 Potassium 4.4 Chloride 110 H Carbon Dioxide 23 BUN 30 H Creatinine 1.03 Estimated GFR > 60.0 BUN/Creatinine Ratio 29.1 H Glucose 123 H Lactate Calcium 8.4 Total Bilirubin AST ALT Alkaline Phosphatase Total Protein Albumin Globulin Albumin/Globulin Ratio SARS-CoV-2 (PCR) Blood Type Antibody Screen Assessment & Plan Assessment & Plan narrative: Patient with hypothyroidism caused by immunotherapy who now has metastatic melanoma under treatment with the immunotherapy and developed blood in his stool. I have talked to him about a colonoscopy. Risks of bleeding perforation failure to find removal lesions and the potential tattoo were discussed. He was informed that will probably be doing the procedure. All questions were answered.
[2020-10-13] MEDS: SODIUM CHLORIDE 0.9% FLUSH 10 ML IV ×2 (07:56→20:33)
[2020-10-13] MEDS: FLEETS ENEMA 1 EACH PR ×2 (07:56→08:30)
--- NOTE | 2020-10-13 07:56 | P.PN_ITS ---
Subjective Subjective Date Patient Seen: 10/13/20 Time Patient Seen: 07:56 Interval history: Patient seen and evaluated this morning. Discussed care with nursing staff and surgery consultation which is appreciated. Patient had a good night last night. Lots of loose stools as he is getting prepped for colonoscopy. Brown blood with the little bit a red mixed in. Blood counts are little bit down this morning. He is up ambulating well. Tolerating the prep without significant difficulties vital signs are stable. Exam Vital Signs (past 8 hours): - 10/13/20 00:13 10/13/20 04:24 Temperature 98.4 F 97.0 F L Pulse Rate 91 H 80 Respiratory Rate 18 18 Blood Pressure 110/55 L 120/59 L Pulse Oximetry 96 98 Oxygen Delivery Method Room Air Oxygen Flow Rate 0 Narrative Exam Narrative: Gen.: Alert and oriented x3 no apparent distress. HEENT: Pupils equal round and reactive or mucosa is moist Cardio: S1-S2 systolic murmur present Respiratory: Lungs are clear to auscultation no wheezes or crackles normal respiratory effort. Abdomen: Soft nontender no rebound or guarding. Extremities: Full range of motion no appreciable weakness no cyanosis or edema. Neurologic: Grossly intact. Objective Labs Result Diagrams: 10/13/20 04:52 10/13/20 04:52 Labs: Laboratory Results - last 24 hr 10/12/20 10/12/20 10/12/20 11:20 11:20 11:20 WBC 8.7 RBC 3.44 L Hgb 10.2 L Hct 30.7 L MCV 89.3 MCH 29.7 MCHC 33.3 RDW 14.0 Plt Count 297 Neut % (Auto) 73.1 Lymph % (Auto) 14.3 L [place] % (Auto) 11.9 Eos % (Auto) 0.4 L Baso % (Auto) 0.3 Neut # (Auto) 6300 Lymph # (Auto) 1200 [place] # (Auto) 1000 H Eos # (Auto) 0 Baso # (Auto) 0 PT 12.3 INR 1.1 APTT 29 Sodium 140 Potassium 4.5 Chloride 111 H Carbon Dioxide 22 BUN 33 H Creatinine 1.11 Estimated GFR > 60.0 BUN/Creatinine Ratio 29.7 H Glucose 139 H Lactate Calcium 8.3 L Total Bilirubin 0.1 L AST 15 L ALT 11 Alkaline Phosphatase 78 Total Protein 5.8 L Albumin 3.2 L Globulin 2.6 Albumin/Globulin Ratio 1.2 SARS-CoV-2 (PCR) Blood Type Antibody Screen 10/12/20 10/12/20 10/12/20 11:20 11:20 12:35 WBC RBC Hgb Hct MCV MCH MCHC RDW Plt Count Neut % (Auto) Lymph % (Auto) [place] % (Auto) Eos % (Auto) Baso % (Auto) Neut # (Auto) Lymph # (Auto) [place] # (Auto) Eos # (Auto) Baso # (Auto) PT INR APTT Sodium Potassium Chloride Carbon Dioxide BUN Creatinine Estimated GFR BUN/Creatinine Ratio Glucose Lactate 1.2 Calcium Total Bilirubin AST ALT Alkaline Phosphatase Total Protein Albumin Globulin Albumin/Globulin Ratio SARS-CoV-2 (PCR) Negative Blood Type B Positive Antibody Screen Negative 10/13/20 10/13/20 04:52 04:52 WBC 7.8 RBC 3.10 L Hgb 9.3 L Hct 27.8 L MCV 89.4 MCH 29.9 MCHC 33.4 RDW 14.4 Plt Count 267 Neut % (Auto) 62.7 Lymph % (Auto) 20.8 L [place] % (Auto) 13.4 Eos % (Auto) 2.5 Baso % (Auto) 0.6 Neut # (Auto) 4900 Lymph # (Auto) 1600 [place] # (Auto) 1000 H Eos # (Auto) 200 Baso # (Auto) 0 PT INR APTT Sodium 139 Potassium 4.4 Chloride 110 H Carbon Dioxide 23 BUN 30 H Creatinine 1.03 Estimated GFR > 60.0 BUN/Creatinine Ratio 29.1 H Glucose 123 H Lactate Calcium 8.4 Total Bilirubin AST ALT Alkaline Phosphatase Total Protein Albumin Globulin Albumin/Globulin Ratio SARS-CoV-2 (PCR) Blood Type Antibody Screen [facility] Medical History Acquired hypothyroidism 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 Patient getting prepped for colonoscopy loose bowel movements route the night with some bright red blood mild amount. Hemoglobin hematocrit dropped a little bit. Not enough for blood transfusion. He is relatively asymptomatic other than a little bit of dizziness standing up. Acute blood loss anemia. Type and screen yesterday for 2 units. Patient is doing well this morning blood counts are fairly stable. No high volume blood loss. Awaiting colonoscopy findings. Continue to monitor serial hemoglobin hematocrit. Metastatic melanoma. On immunotherapy further research states that this may be a cause of colitis. Will see what the colonoscopy shows and biopsies. Hyperlipidemia. Patient is currently on a statin we will continue statin medication. Hypothyroidism. Patient will be continued on his thyroid medication. Prophylactic. Patient will be and DVT prophylaxis with SCDs. Disposition and plan. Colonoscopy today. Serial monitoring hemoglobin hematocrit vital signs are stable.
--- NOTE | 2020-10-13 08:05 | PM.PREOP ---
Pre-operative Note COVID-19 COVID-19 status: Negative Result date/Date tested (Pos, Neg/Pending): 10/12/20 Interval Note History & Physical reviewed/Exam performed by Physician: Yes Changes to H&P: No ASA Class (for procedural sedation): II
[2020-10-13] MEDS: LEVOTHYROXINE 125 MCG TABLET PO (08:30)
--- NOTE | 2020-10-13 09:53 | PC.NURSE ---
Addendum entered by Antonina Jessica R.N. 10/13/20 12:06: Pt back to room from OR via bed. Denies pain, nausea or shortness of breath. Bed alarm on for safety. Spouse at the bedside. Pt denies needs at this time. Original Note: Pt to OR via bed by OR staff for colonoscopy. Consent signed. Chart with Pt.
[2020-10-13] MEDS: LACTATED RINGERS 1,000 ML 42 ML IV (10:14)
--- NOTE | 2020-10-13 10:15 | PM.OP.ENDO ---
Operative Date/Time/Diagnoses Date of procedure: 10/13/20 Time of procedure: 10:15 Pre-op diagnosis: GI bleed Post-op diagnosis: same (Prepyloric ulcer with stigmata of recent bleeding; isolated prepyloric gastritis) Procedure & Clinicians Study performed: Colonoscopy Esophagogastroduodenoscopy with biopsies of stomach Indications: Lower GI bleed Surgeon: Roxanna Uriostegui Procedure Notes SCOAP/Timeout: Performed Procedure in detail: The patient was brought to the room, and he was placed under general anesthesia an with an ET tube by the anesthesiologist. He was then placed in left lateral decubitus position with all bony prominences padded. A time-out was performed and then the procedure was begun. A rectal exam was performed revealing blood-tinged black stool. The colonoscope was then introduced to the rectum and advanced to the cecum in the usual fashion. The cecum was identified by the appendiceal orifice, the mucosal tri-fold, and the ileocecal valve. The ileocecal valve was intubated, and no abnormality was seen on the ileal mucosa, and no blood was seen coming through the ileum.. The scope was then retracted while rotating side to side and examining each mucosal fold. There was some pooled thin black liquid with a tinge of bright red blood. This was washed and suctioned out. No source of bleeding was identified. At the conclusion of the procedure retroflexion was performed and small grade 1-2 internal hemorrhoids without stigmata of bleeding were seen. The scope was then withdrawn from the rectum. Since no source of bleeding was found, I called the patient's and got consent over the phone to do an upper endoscopy. Risks and benefits were discussed including risk of bleeding, perforation, need for additional procedures. The patient's , Patti Hoff, gave verbal permission over the phone confirmed by the endoscopy nurse and addended to his colonoscopy consent form. A bite block was positioned in the patient's mouth to protect the lips, teeth, and tongue for the procedure. A time-out was performed and then the procedure was begun. The lubricated gastroscope was passed through the bite block and across the tongue and into the esophagus without incident. A tubular view of the esophagus was maintained as the scope was advanced through the esophagus and into the stomach. The scope was advanced through the stomach and to the pylorus. The scope was gently popped through the pylorus and into the duodenal bulb. The scope was flexed and advanced into the second and third portions of the duodenum. The duodenum and duodenal bulb appeared normal. The scope was withdrawn into the stomach. There was significant gastritis isolated to the pre-pyloric area. There was stigmata of recent bleeding on a pre-pyloric ulcer. No active bleeding or exposed vessels were seen. The scope was retroflexed and the gastric cardia was examined. There was a moderate hiatal hernia, without any signs of ulceration or source of bleeding. The scope was then straightened, and withdrawn into the esophagus. The Z-line appeared fairly normal without any significant mucosal breaks. The distal esophagus appeared otherwise normal. The scope was then withdrawn through the esophagus with a tubular view. The scope was then withdrawn from the patient the procedure was concluded. The patient tolerated the procedure well, and was then awakened from anesthesia by the anesthesiologist and extubated. He was transferred to the PACU in stable condition. Scope withdrawal time: 23 Findings: gastric ulcer, gastritis and hiatal hernia Specimen(s): other (Biopsies of stomach to rule out H pylori) Complications: none Impression: Likely source of bleeding is a pre-pyloric ulcer, which is not currently bleeding. Post-procedure Recommendations: Colonscopy in 5 years (Visualization was adequate to rule out a bleed, but not adequate to rule out lesions smaller than 5 mm, therefore repeat colonoscopy should be done in 5 years rather than 10. ), EGD in 6-8 weeks (To evaluate healing), Start medication(s) (With start double dose PPI (such as omeprazole 40 mg b.i.d.)) and Other recommendation (Capsule endoscopy if patient rebleeds in the interim) Follow up: as needed Disposition: PACU
[2020-10-13] MEDS: PANTOPRAZOLE 40 MG TABLET PO ×2 (12:37→20:33)
--- NOTE | 2020-10-13 14:08 | CM.IDA ---
Initial DCP Assessment Note Patient is a 75 yo male, resident of [place]. Patient presents w/GI bleed, off the floor today for Colonoscopy that transitioned into EGD which found Prepyloric ulcer and gastritis. Patient is expected to be DC tomorrow. PCP: Koffi Chambers (Needs new PCP) Payer: [employer]/ MCR A+B Met w/patient and his Salma, introduced role and left name/contact info on white board. Spouse is very pleasant, patient remains somewhat groggy, states he would like to return home this evening. Patient/spouse deny needs from this [employer], Salma explains they have a lot of family support in the area. Plan: DC home, likely tomorrow, w/supportive family and close outpatient f/u [facility] Discharge Planning/Care Management CM Discharge Assessment Start: 10/13/20 14:07 Freq: Status: Active Protocol: Document 10/13/20 14:07 [facility] (Rec: 10/13/20 14:08 [facility] [id number]) Discharge Planning Assessment Assigned [employer] CABRERA Montanez DPOA/Assigned Designee Name Salma Hoff, spouse Contact Information [phone] Advance Directives? No History Provided By Patient,Significant Other Prior Living Arrangements House Household Members spouse Type of transporation used prior to Drives own vehicle admit Independent with ADL's Yes Is patient alert and oriented? Yes Barriers to Discharge No Discharge Plan Home Transportation Arrangement Family Referrals Initiated None needed
[2020-10-13 17:29] LABS: Hematocrit 25.7 % (41-53); Hemoglobin 8.7 g/dL (13.5-17.5)
[2020-10-13] MEDS: ATORVASTATIN 20 MG TABLET 10 MG PO (20:32)
[2020-10-14 04:27] VITALS: BP 108/61; PULSE 87; RESP 18; TEMP 36.9; O2SAT 97
[2020-10-14 05:31] LABS: Add Manual Diff / Slide Review NO; Basophils Absolute Auto 0 /uL (0-100); Basophils Percent Auto 0.5 % (0-2); Eosinophils Absolute Auto 100 /uL (0-450); Eosinophils Percent Auto 1.9 % (2-4); Hematocrit 25.4 % (41-53); Hemoglobin 8.6 g/dL (13.5-17.5); Lymphocytes Absolute Auto 1300 /uL (1100-4500); Lymphocytes Percent Auto 17.5 % (25-40); Mean Corpuscular HGB Conc 33.9 % (30-36); Mean Corpuscular Hemoglobin 30.1 PG (26-34); Mean Corpuscular Volume 88.9 fL (80-100); Monocytes Absolute Auto 1000 /uL (0-900); Monocytes Percent Auto 13.7 % (3-14); Neutrophils Absolute Auto 4900 /uL (1500-7000); Neutrophils Percent Auto 66.4 % (50-75); Platelet Count 259 X10^3/uL (150-400); Red Blood Cell Count 2.86 X10^6/uL (4.5-5.9); Red Cell Distribution Width 14.3 % (11.6-14.8); White Blood Cell Count 7.4 X10^3/uL (4.5-11.0)
[2020-10-14 05:43] LABS: BUN Creatinine Ratio 22.4 (6-22); Blood Urea Nitrogen 22 mg/dL (9-20); Calcium 8.2 mg/dL (8.4-10.2); Carbon Dioxide 25 mmol/L (22-32); Chloride 109 mmol/L (98-107); Estimated Glomerular Filt Rate > 60.0 mL/min (>60); Glucose 119 mg/dL (80-110); HEMOLYSIS < 15 (0-50); Potassium 4.2 mmol/L (3.4-5.1); Sodium 138 mmol/L (137-145)
[2020-10-14] MEDS: PANTOPRAZOLE 40 MG TABLET PO (06:26)
--- NOTE | 2020-10-14 07:44 | P.DS_ITS ---
History of Present Illness History of Present Illness Date Patient Seen: 10/14/20 Chief complaint: stool dark/blood in it Narrative: 75-year-old male metastatic melanoma lymphoma history hyperlipidemia hypothyroidism presents to the emergency department with acute gastrointestinal bleeding. Patient states he has never had rectal bleeding before in his entire life. Last night in the evening. He had a bowel movement with dark bloody stools. He says it is quite a lot. Had a number of more throughout the evening at about 1:00 a.m. they seem to stop. He says he became a little bit tell. Since then he has been a little bit lightheaded when he stands up. He was jose maria rned enough that he came to the emergency department. Says the bleeding was painless. He thought maybe was is livers kidneys. He was not sure what was going on. Patient states that he is not associated with pain with it. He is not nauseated. Patient does not have heartburn. He does not take regular anti- inflammatories such as aspirin ibuprofen Motrin early. Patient takes a baby aspirin a day. Patient said the bleeding was associated with the diarrhea as well. Had no fevers or chills. Other than feeling weak with standing he has had no chest pain or shortness of breath. Patient states his last colonoscopy was 10 or 12 years ago had 1 scheduled but then got diagnosed with melanoma and postponed. He has never had an upper endoscopy. He says he does not take antacids on a regular basis. He is on a monoclonal antibody for treatment of his melanoma which is an infusion Nivolumab. He did mention that maybe this is causes colitis. On looking this medication up I do not see this listed as 1 of the serious side effects of it. Reviewed his emergency room course CT scans and laboratory tests he does not have a fever and he does not have a white blood cell count. He has mild sigmoid thickening. Which may be consistent more with colitis. {from Dr. Gracia's H&P 10/12/20} Discharge Providers Provider Date of admission: 10/12/20 13:04 Discharge Date: 10/14/20 Primary care physician: Taran Hernandez MD Discharge provider: Taran Hernandez MD Summary Hospital Course Discharge Diagnosis: 1. Gastric ulcer 2. Acute upper GI bleeding 3. Acute blood loss anemia 4. Lymphoma in remission 5. Mixed hyperlipidemia 6. Acquired hypothyroidism Hospital Course: Patient presented to [facility] Emergency Department with bloody stools. He was evaluated felt to have possible colitis based on CT imaging. He underwent colonoscopy which failed to reveal an etiology for his symptoms. He then underwent upper endoscopy which showed evidence of a gastric ulcer as well as mild gastritis. Biopsies were performed. Blood counts were followed awhile they drop they remained stable over the 24 hours prior to discharge. Patient no further evidence of large volume bleeding Vital signs remained stable. Patient's other medical problems felt to be stable. Patient was counseled to discontinue all NSAIDs and was started on proton pump inhibitors Status at Discharge Cognitive/behavioral status at discharge: at baseline, oriented Functional status at discharge: independent ambulation Overall status at discharge: patient is back to baseline Exam Vital Signs (past 8 hours): - 10/14/20 04:27 Temperature 98.5 F Pulse Rate 87 Respiratory Rate 18 Blood Pressure 108/61 Pulse Oximetry 97 Oxygen Delivery Method Room Air Oxygen Flow Rate 0 Objective Labs Result Diagrams: 10/14/20 05:12 10/14/20 05:12 Labs: Laboratory Results - last 24 hr 10/13/20 10/14/20 10/14/20 17:10 05:12 05:12 WBC 7.4 RBC 2.86 L Hgb 8.7 L 8.6 L Hct 25.7 L 25.4 L MCV 88.9 MCH 30.1 MCHC 33.9 RDW 14.3 Plt Count 259 Neut % (Auto) 66.4 Lymph % (Auto) 17.5 L [place] % (Auto) 13.7 Eos % (Auto) 1.9 L Baso % (Auto) 0.5 Neut # (Auto) 4900 Lymph # (Auto) 1300 [place] # (Auto) 1000 H Eos # (Auto) 100 Baso # (Auto) 0 Sodium 138 Potassium 4.2 Chloride 109 H Carbon Dioxide 25 BUN 22 H Creatinine 0.98 Estimated GFR > 60.0 BUN/Creatinine Ratio 22.4 H Glucose 119 H Calcium 8.2 L PFSH Medical History Acquired hypothyroidism 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 proton pump inhibitor which is been prescribed Patient also benefit from iron replacement therapy to assist in recovering from his anemia Patient will continue all other medications Patient will have any NSAIDs including his daily small dose aspirin discontinued Patient be seen in the outpatient clinic by Dr. Hernandez his new PCP in approximately 7-10 days time Discharge Plan Discharge Plan Patient Disposition: Home Discharge orders & Medications Prescriptions: New ferrous sulfate 325 mg (65 mg iron) tablet 325 mg PO BID Qty: 60 RF: 3 omeprazole 40 mg capsule,delayed release(DR/EC) 40 mg PO BID Qty: 60 RF: 3 Continued atorvastatin [Lipitor] 10 mg tablet 10 mg PO HS Qty: 30 RF: 0 fluoride (sodium) 1.1 % gel 1 applic PO BEDTIME RF: 0 cevimeline 30 mg capsule 1 cap PO TID RF: 0 levothyroxine 125 mcg tablet 125 mcg PO DAILY RF: 0 Discontinued naproxen sodium [Aleve] 220 MG tablet 220 mg PO PRN Qty: 0 RF: 0 aspirin [Adult Low Dose Aspirin] 81 mg tablet,delayed release (DR/EC) 81 mg PO DAILY RF: 0 Follow up/Referrals: Taran Hernandez MD [Physician] - 1 Week Discharge Health Status Multidrug resistant organism: No MDRO Diet/Activity/Treatments Diet: Diet as Tolerated Visit Report/Discharge Packet Instructions: DI for Gastritis, DI for Gastric Ulcer Discharge Data Primary Care Provider: Koffi Chambers
[2020-10-14 08:00] VITALS: BP 115/65; PULSE 84; RESP 19; TEMP 36.9; O2SAT 96
[2020-10-14] MEDS: LEVOTHYROXINE 125 MCG TABLET PO (08:52)
[2020-10-14 08:58] VITALS: O2SAT 96
--- NOTE | 2020-10-14 09:11 | PC.NURSE ---
Addendum entered by Elvie Gomez R.N. 10/14/20 09:46: Went over dc instructions and medications with patient, questions answered. Patient taken via wc to vehicle driven by spouse, patient had all belongings. Original Note: Patient alert, oriented denies pain, nausea and shortness of breath. Up independently in room without dizziness. Patient waiting to dc later this morning.
--- NOTE | 2020-10-14 11:56 | CM.DPNOTE ---
Discharge planning: Per MD, patient is medically stable to d/c home today. There are no needs identified at d/c. Patient d/c home with spouse prior to balance truer able to meet bedside. CABRERA Hurtado
== END 2020-10-14 09:48 | disposition home or self-care (01) | DRG 378 ==
LOC: ED 11:26 → AC 17:26
PROVIDERS: Surgery; Admitting Provider Family Medicine; Emergency Provider Emergency Medicine; Family Provider Family Medicine; PCP Family Medicine; Referring Provider Emergency Medicine; Visit Provider Internal Medicine
PROC: 0DJD8ZZ Inspection of Lower Intestinal Tract, Via Natural or Artificial Opening Endoscopic (ICD-10-PCS; CPT 45378; principal; 2020-10-13 09:15)
PROC: 0DJ08ZZ Inspection of Upper Intestinal Tract, Via Natural or Artificial Opening Endoscopic (ICD-10-PCS; CPT 43235; 2020-10-13 09:15)
DX: K25.4 Chronic or unspecified gastric ulcer with hemorrhage (principal); D62 Acute posthemorrhagic anemia; K29.71 Gastritis, unspecified, with bleeding; Z20.822 Contact with and (suspected) exposure to COVID-19; E03.9 Hypothyroidism, unspecified; E78.2 Mixed hyperlipidemia
CPT/HCPCS: 36415; 74177; 80048; 80053; 81003; 83605; 85014; 85018; 85025; 85610; 85730; 86850; 86900; 86901; 87635; 93005; 99223; 99233; 99238; 99284; C9113; J0330; J2250; J2405; J2704; J3010

== ENCOUNTER → 2020-10-21 14:12 | Outpatient (CLI) | payer OTHER, MEDICARE, SELFPAY ==
[2020-10-12 18:27] VITALS: BMI 28.7
[2020-10-21 14:52] LABS: Add Manual Diff / Slide Review NO; Basophils Absolute Auto 0 /uL (0-100); Basophils Percent Auto 0.5 % (0-2); Eosinophils Absolute Auto 100 /uL (0-450); Eosinophils Percent Auto 1.6 % (2-4); Hemoglobin 9.4 g/dL (13.5-17.5); Lymphocytes Absolute Auto 1200 /uL (1100-4500); Lymphocytes Percent Auto 16.3 % (25-40); Mean Corpuscular HGB Conc 33.4 % (30-36); Mean Corpuscular Hemoglobin 30.3 PG (26-34); Mean Corpuscular Volume 90.7 fL (80-100); Monocytes Absolute Auto 900 /uL (0-900); Monocytes Percent Auto 11.9 % (3-14); Neutrophils Absolute Auto 5300 /uL (1500-7000); Neutrophils Percent Auto 69.7 % (50-75); Platelet Count 379 X10^3/uL (150-400); Red Blood Cell Count 3.09 X10^6/uL (4.5-5.9); Red Cell Distribution Width 15.1 % (11.6-14.8); White Blood Cell Count 7.7 X10^3/uL (4.5-11.0)
[2020-10-21 14:55] LABS: BUN Creatinine Ratio 16.1 (6-22); Blood Urea Nitrogen 18 mg/dL (9-20); Calcium 8.7 mg/dL (8.4-10.2); Carbon Dioxide 26 mmol/L (22-32); Chloride 109 mmol/L (98-107); Estimated Glomerular Filt Rate > 60.0 mL/min (>60); Glucose 114 mg/dL (80-110); HEMOLYSIS < 15 (0-50); Potassium 4.1 mmol/L (3.4-5.1); Sodium 138 mmol/L (137-145)
[2020-10-21 15:06] LABS: NT-proBNP (BNP-Adult 18+) 316 pg/mL (<125)
== END ==
PROVIDERS: Family Provider Family Medicine; PCP Internal Medicine; Referring Provider Internal Medicine; Visit Provider Internal Medicine
DX: R06.01 Orthopnea (principal); K92.2 Gastrointestinal hemorrhage, unspecified
CPT/HCPCS: 36415; 80048; 83880; 85025

== ENCOUNTER → 2020-11-05 17:06 | Outpatient (CLI) | payer OTHER, MEDICARE, SELFPAY ==
[2020-10-12 18:27] VITALS: BMI 28.7
--- NOTE | 2020-11-05 | DI.MRI.S_ITS ---
PROCEDURE: MR HEAD/BRAIN WO/W CON INDICATIONS: secondary malignant neoplasm of brain TECHNIQUE: Noncontrast axial T1 spin echo, axial T2 fast spin echo, sagittal and axial FLAIR, coronal T2 fast spin echo, axial gradient echo, axial diffusion and ADC through the brain. After the administration of contrast, axial and coronal T1 spin echo with fat saturation through the brain. COMPARISON: Outside Facility, RG, MRI BRAIN W/WO CONTRAST, 08/13/2020, 10:27. FINDINGS: Image quality: Excellent. CSF spaces: Basal cisterns are patent. No extra-axial fluid collections. Ventricles are normal in size and shape. Brain: No midline shift. No intracranial bleeds or masses. Previously described area of punctate right occipital lobe enhancement is grossly unchanged for example image 64/14. Previously described left anterior temporal lobe enhancement is no longer seen. Left frontal lobe punctate enhancement is also not well seen. No new areas of abnormal enhancement seen There is cerebral volume loss for age. There is periventricular white matter chronic small vessel ischemic change. The brainstem appears normal. Diffusion-weighted images demonstrate a punctate focus of abnormal signal involving the left frontal parietal white matter however not definitely confirmed on the ADC map and there is T2 hyperintensity in this region raising the possibility of showing T2 shine through artifact, this finding technically indeterminate. No chronic ischemic insults. Normal intravascular flow voids are present. Skull and face: Calvarial marrow is normal in signal. Orbits appear normal. Sinuses: Sinuses and mastoids appear clear. IMPRESSION: Interval resolution of punctate areas of enhancement in the left frontal lobe and anterior left temporal lobe. Stable appearance of punctate enhancing focus in the right occipital lobe since 08/13/20. No new abnormal enhancement Dictated by: Xu Mckeon M.D. on 11/06/2020 at 9:25 Approved by: Xu Mckeon M.D. on 11/06/2020 at 10:00
== END ==
PROVIDERS: Family Provider Family Medicine; PCP Internal Medicine; Referring Provider Physician Assistant; Visit Provider Physician Assistant
DX: C79.31 Secondary malignant neoplasm of brain (principal)
CPT/HCPCS: 70553; A9579

== ENCOUNTER → 2020-11-09 10:08 | Outpatient (CLI) | payer OTHER, MEDICARE, SELFPAY ==
[2020-10-12 18:27] VITALS: BMI 28.7
[2020-11-09 12:04] LABS: COVID19 -Nasal RAPID Negative (Negative)
== END ==
PROVIDERS: Family Provider Family Medicine; PCP Internal Medicine; Referring Provider Physician Assistant; Visit Provider Physician Assistant
DX: Z01.812 Encounter for preprocedural laboratory examination (principal); Z20.822 Contact with and (suspected) exposure to COVID-19
CPT/HCPCS: 87635

== ENCOUNTER → 2020-11-22 12:12 | Outpatient (CLI) | payer OTHER, MEDICARE, SELFPAY ==
[2020-11-18 13:15] VITALS: BMI 28.7
[2020-11-22 13:17] LABS: Hematocrit 32.8 % (41-53); Hemoglobin 10.6 g/dL (13.5-17.5); Mean Corpuscular HGB Conc 32.3 % (30-36); Mean Corpuscular Volume 86.5 fL (80-100); Platelet Count 410 X10^3/uL (150-400); Red Blood Cell Count 3.79 X10^6/uL (4.5-5.9); Red Cell Distribution Width 13.9 % (11.6-14.8); White Blood Cell Count 7.7 X10^3/uL (4.5-11.0)
[2020-11-22 14:52] LABS: HEMOLYSIS < 15 (0-50); Iron 12 ug/dL (49-181)
[2020-11-22 15:02] LABS: Percent Iron Saturation 4 % (20-50); Total Iron Binding Capacity 288 ug/dL (261-462); Transferrin 230 mg/dL (206-381)
[2020-11-22 15:37] LABS: Alanine Aminotransferase 10 IU/L (<50); Albumin 3.3 g/dL (3.5-5.0); Albumin Globulin Ratio 1.4 (1.0-2.8); Alkaline Phosphatase 96 U/L (38-126); Aspartate Aminotransferase 18 IU/L (17-59); BUN Creatinine Ratio 19.8 (6-22); Bilirubin Total 0.2 mg/dL (0.2-1.3); Blood Urea Nitrogen 22 mg/dL (9-20); Calcium 8.9 mg/dL (8.4-10.2); Carbon Dioxide 24 mmol/L (22-32); Chloride 106 mmol/L (98-107); Estimated Glomerular Filt Rate > 60.0 mL/min (>60); Globulin 2.4 g/dL (1.7-4.1); Glucose 117 mg/dL (80-110); HEMOLYSIS < 15 (0-50); Sodium 138 mmol/L (137-145); Total Protein 5.7 g/dL (6.3-8.2)
== END ==
PROVIDERS: Family Provider Family Medicine; PCP Internal Medicine; Referring Provider Internal Medicine; Visit Provider Internal Medicine
DX: E03.9 Hypothyroidism, unspecified (principal); K25.0 Acute gastric ulcer with hemorrhage
CPT/HCPCS: 36415; 80053; 83540; 83550; 85027

== ENCOUNTER → 2020-12-11 09:28 | Outpatient (CLI) | payer OTHER, MEDICARE, SELFPAY ==
[2020-11-18 13:15] VITALS: BMI 28.7
[2020-12-11 14:26] LABS: COVID19 -Nasal RAPID Negative (Negative)
== END ==
PROVIDERS: Family Provider Family Medicine; PCP Internal Medicine; Visit Provider Surgery
DX: Z20.822 Contact with and (suspected) exposure to COVID-19 (principal)
CPT/HCPCS: 87635

== ENCOUNTER 2020-12-11 15:42 | Inpatient (IN) | payer OTHER, MEDICARE, SELFPAY ==
[2020-11-18 13:15] VITALS: BMI 28.7
[2020-12-11] VITALS (8 sets, daily range): BP systolic 103–127; BP diastolic 55–69; PULSE 114–127; RESP 17–29; TEMP 37.4; O2SAT 91–97; BMI 27.1
[2020-12-11 16:32] LABS: Add Manual Diff / Slide Review NO; Basophils Absolute Auto 0 /uL (0-100); Basophils Percent Auto 0.2 % (0-2); Eosinophils Absolute Auto 100 /uL (0-450); Eosinophils Percent Auto 0.7 % (2-4); Hematocrit 32.9 % (41-53); Hemoglobin 10.5 g/dL (13.5-17.5); Lymphocytes Absolute Auto 900 /uL (1100-4500); Lymphocytes Percent Auto 7.3 % (25-40); Mean Corpuscular HGB Conc 31.8 % (30-36); Mean Corpuscular Hemoglobin 26.2 PG (26-34); Mean Corpuscular Volume 82.2 fL (80-100); Monocytes Absolute Auto 1700 /uL (0-900); Monocytes Percent Auto 13.4 % (3-14); Neutrophils Absolute Auto 10000 /uL (1500-7000); Neutrophils Percent Auto 78.4 % (50-75); Platelet Count 583 X10^3/uL (150-400); Red Blood Cell Count 4.01 X10^6/uL (4.5-5.9); Red Cell Distribution Width 15.2 % (11.6-14.8); White Blood Cell Count 12.8 X10^3/uL (4.5-11.0)
--- NOTE | 2020-12-11 16:48 | ED.GENADULT ---
HPI - General Adult General Chief complaint: Abdominal Pain Stated complaint: states severe abd pain Time Seen by Provider: 12/11/20 16:28 Source: patient Mode of arrival: Ambulatory Limitations: no limitations History of Present Illness HPI narrative: Patient is a 75-year-old male here for evaluation of what he describes as a fairly sudden onset of epigastric abdominal pain that started approximately noon today. He was not eating at the time of the onset. He had just received a COVID screening test for a upper endoscopy that he is scheduled for tomorrow. Approximately 2 months ago he was seen in this emergency department admitted to the hospital for what was thought to be a GI bleed. He had a colonoscopy and a upper endoscopy. His colonoscopy was unremarkable per the notes but he was found have a stomach ulcer. He is placed on a PPI. Since that time his symptoms have improved until earlier today. Some nausea but no vomiting. No change in bowel habits. Fevers. Has not tried anything for symptoms prior to arrival. Related Data Home Medications Medication Instructions Recorded Confirmed fluoride (sodium) 1.1 % dental gel 1 applic PO BEDTIME g 10/11/20 11/29/20 levothyroxine 125 mcg tablet 125 mcg PO DAILY 10/11/20 11/29/20 Previous Rx's Medication Instructions Recorded ferrous sulfate 325 mg PO BID #60 tab 10/14/20 atorvastatin 10 mg tablet 10 mg PO HS #90 tab 10/28/20 omeprazole 40 mg capsule,delayed 40 mg PO DAILY #60 cap 11/22/20 release cevimeline 30 mg capsule 1 cap PO TID #270 cap 11/29/20 Allergies Allergy/AdvReac Type Severity Reaction Status Date / Time No Known Drug Allergies Allergy Verified 12/11/20 15:47 Review of Systems Constitutional Constitutional: Denies fever(s) Cardiovascular Cardiovascular: Denies chest pain and Denies dyspnea Respiratory Respiratory: Denies dyspnea Gastrointestinal Gastrointestinal: Reports abdominal pain, Denies constipation, Denies diarrhea, Reports nausea and Denies vomiting Genitourinary Genitourinary: Reports system reviewed and no additional complaints, except as documented Musculoskeletal Musculoskeletal: Denies back pain Integumentary/Breasts Skin/Breast: Reports system reviewed and no additional complaints, except as documented Neurologic Neurologic: Reports system reviewed and no additional complaints, except as documented Hematologic/Lymphatic Hematologic/Lymphatic: Reports system reviewed and no additional complaints, except as documented Allergic/Immunologic Allergic/Immunologic: Reports system reviewed and no additional complaints, except as documented 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) Gastric ulcer 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) Melanoma Mixed hyperlipidemia (08/14/15) Surgical History (Updated 11/21/20 @ 23:12 by Soraya Clemente) H/O melanoma excision (~2018) Family History (Updated 11/21/20 @ 23:13 by Soraya Clemente) Father Congestive heart failure Mother Congestive heart failure Brother Brain tumor Sister Cancer Social History household members: spouse Smoking Status: Former smoker alcohol intake: never Smoking Status: Former smoker alcohol intake frequency: holidays/special occasions only Substance Use Type: does not use Exam Initial Vital Signs Initial Vital Signs: Vital Signs Temperature 99.4 F 12/11/20 15:47 Pulse Rate 126 H 12/11/20 15:47 Respiratory Rate 17 12/11/20 15:47 Blood Pressure 126/55 L 12/11/20 15:47 Pulse Oximetry 97 12/11/20 15:47 Const General: cooperative and No comfortable (Uncomfortable) Limitations: mental status not altered HENMT Head: normal to inspection and normocephalic Resp Effort & Inspection: normal respiratory effort Auscultation: clear to auscultation bilaterally Cardio Rate: tachycardic Rhythm: regular rhythm GI Inspection: distended Palpation: firm, guarding and tender (Epigastric region) Skin Lesions: no lesions Rashes: no rashes Neuro General: patient alert and patient awake Cognition: normal cognition Speech: speech normal Extrem General: capillary refill normal Psych Appearance: grossly normal and well kempt Course Orders Ordered: ED Orders 12/11/20 15:50 EKG-12 Lead Stat 12/11/20 16:20 Lactate (Lactic Acid) Stat 12/11/20 16:21 Complete Blood Count AUTO DIFF Stat Comprehensive Metabolic Panel Stat Lipase Stat 12/11/20 16:52 CT abdomen pelvis w con Stat 12/11/20 18:52 Blood Culture Stat Discontinued Medications Sodium Chloride (Normal Saline 0.9%) 1,000 mls @ 1,000 mls/hr IV BOLUS ONE Stop: 12/11/20 17:50 Last Infusion: 12/11/20 19:20 Dose: 0 mls/hr Documented by: Admin: 12/11/20 17:16 Dose: 1,000 mls/hr Documented by: DAQUAN Piperacillin Sod/Tazobactam (Sod 4.5 gm/ Sodium Chloride) 100 mls @ 200 mls/hr IV NOW ONE Stop: 12/11/20 18:30 Last Admin: 12/11/20 19:18 Dose: 200 mls/hr Documented by: MARINO Morphine Sulfate (Morphine 4 Mg/Ml Inj) 4 mg IV NOW ONE Stop: 12/11/20 16:52 Last Admin: 12/11/20 17:16 Dose: 4 mg Documented by: DAQUAN Morphine Sulfate (Morphine 4 Mg/Ml Inj) 4 mg IV NOW ONE Stop: 12/11/20 19:39 Ondansetron HCl (Ondansetron 4 Mg/2 Ml Inj) 4 mg IV NOW ONE Stop: 12/11/20 16:52 Last Admin: 12/11/20 17:16 Dose: 4 mg Documented by: DAQUAN Vital Signs Vital signs: Vital Signs - 8 hr 12/11/20 15:47 12/11/20 16:17 12/11/20 16:23 Temperature 99.4 F Pulse Rate 126 H 127 H 116 H Respiratory Rate 17 24 Blood Pressure 126/55 L 126/69 Pulse Oximetry 97 96 94 12/11/20 16:30 Temperature Pulse Rate 114 H Respiratory Rate 20 Blood Pressure 121/64 Pulse Oximetry 93 Medical Decision Making Lab Data Lab results reviewed: Yes I reviewed the patient's lab results. Result diagrams: 12/11/20 16:21 12/11/20 16:21 Labs: Lab Results 12/11/20 12/11/20 12/11/20 Range/Units 16:20 16:21 16:21 WBC 12.8 H (4.5-11.0) X10^3/uL RBC 4.01 L (4.5-5.9) X10^6/uL Hgb 10.5 L (13.5-17.5) g/dL Hct 32.9 L (41-53) % MCV 82.2 (80-100) fL MCH 26.2 (26-34) PG MCHC 31.8 (30-36) % RDW 15.2 H (11.6-14.8) % Plt Count 583 H (150-400) X10^3/uL Neut % (Auto) 78.4 H (50-75) % Lymph % (Auto) 7.3 L (25-40) % [place] % (Auto) 13.4 (3-14) % Eos % (Auto) 0.7 L (2-4) % Baso % (Auto) 0.2 (0-2) % Neut # (Auto) 40087 H (0107-5535) /uL Lymph # (Auto) 900 L (1935-7524) /uL [place] # (Auto) 1700 H (0-900) /uL Eos # (Auto) 100 (0-450) /uL Baso # (Auto) 0 (0-100) /uL Sodium 135 L (137-145) mmol/L Potassium 4.2 (3.4-5.1) mmol/L Chloride 103 (98-107) mmol/L Carbon Dioxide 22 (22-32) mmol/L BUN 21 H (9-20) mg/dL Creatinine 1.14 (0.66-1.25) mg/dL Estimated GFR > 60.0 (>60) mL/min BUN/Creatinine Ratio 18.4 (6-22) Glucose 156 H (80-110) mg/dL Lactate 2.5 H (0.7-2.1) mmol/L Calcium 8.8 (8.4-10.2) mg/dL Total Bilirubin 0.2 (0.2-1.3) mg/dL AST 19 (17-59) IU/L ALT 13 (<50) IU/L Alkaline Phosphatase 101 (38-126) U/L Total Protein 6.3 (6.3-8.2) g/dL Albumin 3.3 L (3.5-5.0) g/dL Globulin 3.0 (1.7-4.1) g/dL Albumin/Globulin Ratio 1.1 (1.0-2.8) Lipase 92 (23-300) U/L 12/11/20 Range/Units 19:15 WBC (4.5-11.0) X10^3/uL RBC (4.5-5.9) X10^6/uL Hgb (13.5-17.5) g/dL Hct (41-53) % MCV (80-100) fL MCH (26-34) PG MCHC (30-36) % RDW (11.6-14.8) % Plt Count (150-400) X10^3/uL Neut % (Auto) (50-75) % Lymph % (Auto) (25-40) % [place] % (Auto) (3-14) % Eos % (Auto) (2-4) % Baso % (Auto) (0-2) % Neut # (Auto) (4480-8138) /uL Lymph # (Auto) (6126-0475) /uL [place] # (Auto) (0-900) /uL Eos # (Auto) (0-450) /uL Baso # (Auto) (0-100) /uL Sodium (137-145) mmol/L Potassium (3.4-5.1) mmol/L Chloride (98-107) mmol/L Carbon Dioxide (22-32) mmol/L BUN (9-20) mg/dL Creatinine (0.66-1.25) mg/dL Estimated GFR (>60) mL/min BUN/Creatinine Ratio (6-22) Glucose (80-110) mg/dL Lactate 1.0 (0.7-2.1) mmol/L Calcium (8.4-10.2) mg/dL Total Bilirubin (0.2-1.3) mg/dL AST (17-59) IU/L ALT (<50) IU/L Alkaline Phosphatase (38-126) U/L Total Protein (6.3-8.2) g/dL Albumin (3.5-5.0) g/dL Globulin (1.7-4.1) g/dL Albumin/Globulin Ratio (1.0-2.8) Lipase (23-300) U/L Imaging Data CT scan - abdomen/pelvis: Radiologist's Impression: [address] [id number] Scan ReportSigned Patient: Nick Eid JMR#: [id number]: 7Acct:[id number]/Sex: 75 / MDate of Service: 12/11/20Loc: EDAccession Number: [id number] Procedure: CT abdomen pelvis w con Ordering Provider: Candido Atkins D.O. PROCEDURE: CT ABDOMEN PELVIS W CON INDICATIONS: Generalized abdominal pain with distention TECHNIQUE: After the administration of intravenous contrast, 5 mm thick sections acquired from the diaphragm to the symphysis. 5 mm coronal and sagittal reformats were acquired. For radiation dose reduction, the following was used: automated exposure control, adjustment of mA and/or kV according to patient size. COMPARISON: [facility], CT, CT ABDOMEN PELVIS W [facility], 10/12/2020, 16:08. FINDINGS: Image quality: Excellent. ABDOMEN: Lung bases: Bibasilar atelectasis. Heart size is normal. Moderate scattered atherosclerotic calcifications of the coronary arteries are noted. Solid organs: Liver is normal in size and enhancement. Gallbladder is unremarkable. Biliary system is non dilated. Pancreas enhances normally. Spleen is normal in size and enhancement. Stable appearance of left adrenal hypodense nodule measuring approximately 1.2 cm in diameter and 30 Hounsfield units in attenuation. Kidneys demonstrate normal size and enhancement, without hydronephrosis. Tiny punctate nonobstructing left nephrolith. Bilateral ureters are normal in course and caliber. No evidence for ureteral stones. Peritoneum and bowel: No evidence for bowel obstruction. There is a long segment of circumferential wall thickening of small bowel, likely involving the ileum with surrounding inflammatory changes and reactive mesenteric lymph nodes. Small amount of surrounding reactive free fluid. Findings are most pronounced in the mid, midline abdomen. No free air. Nodes and vessels: No retroperitoneal or mesenteric adenopathy by size criteria. Aorta and inferior vena cava are normal in size. Scattered atherosclerotic calcifications of the abdominal aorta and iliac vessels without aneurysmal dilatation. Origins of the mesenteric vessels appear patent. Miscellaneous: Small fat containing periumbilical hernia without acute inflammation. Small fat containing right inguinal hernia without acute inflammation. PELVIS: Genitourinary: Urinary bladder wall thickness appears normal for degree of distension. Prominent prostate gland. Miscellaneous: No pelvic adenopathy. Bones: No suspicious bony lesions. No acute vertebral body compression fractures. Multilevel spondylosis of the imaged spine. IMPRESSION: 1. Long segment of circumferential small bowel wall thickening of the midline, mid abdomen likely involving the ileum. Findings are most consistent with an infectious/inflammatory process. Ischemia felt less likely. No evidence for obstruction. 2. Redemonstration of left adrenal nodule, likely representing an adenoma. 3. Stable appearance of nonobstructing punctate left renal calculus. No hydronephrosis. 4. Atherosclerosis. Other chronic findings as above. Dictated by: Kendall Christensen M.D. on 12/11/2020 at 17:55 Approved by: Kendall Christensen M.D. on 12/11/2020 at 18:05 ECG Data Attestation: I personally reviewed and interpreted this ECG as follows: Prior ECG tracings: not available for review Interpretation: Sinus tachycardia Ventricular rate 124 Right bundle branch block Normal QRS QTC normal Nonspecific ST T wave changes MDM Narrative Medical decision making narrative: Upon arrival patient was tachycardic and uncomfortable. He did have a firm abdomen. CT scan was ordered which does not show any signs of perforation nor obstruction but does have findings consistent with enteritis. He was not initially given antibiotics despite his tachycardia and leukocytosis until his CT scan resulted. Patient was not hypotensive so he was not given the sepsis 30 cc/kilogram of fluids. I did discuss the CT scan findings with Dr. Uriostegui with General surgery who states the patient should be admitted under the medicine service for enteritis and she would be happy to consult if the admitting provider felt that was necessary. I then discussed the case with Dr. Regalado who is on-call for the patient's primary provider who will admit for further evaluation and serial abdominal exams. I feel this is necessary given his presentation and the sudden onset of his discomfort to ensure that he does not have a progressing intra-abdominal surgical issue. I did discuss the CT scan findings with the patient. We did discuss the need for admission. He expressed understanding and agreement. Discharge Plan Departure Patient Disposition: Admitted as Observation Clinical Impression: Enteritis, Abdominal pain
--- NOTE | 2020-12-11 16:52 | DI.CT.S_ITS ---
PROCEDURE: CT ABDOMEN PELVIS W CON INDICATIONS: Generalized abdominal pain with distention TECHNIQUE: After the administration of intravenous contrast, 5 mm thick sections acquired from the diaphragm to the symphysis. 5 mm coronal and sagittal reformats were acquired. For radiation dose reduction, the following was used: automated exposure control, adjustment of mA and/or kV according to patient size. COMPARISON: [facility], CT, CT ABDOMEN PELVIS W CON, 10/12/2020, 16:08. FINDINGS: Image quality: Excellent. ABDOMEN: Lung bases: Bibasilar atelectasis. Heart size is normal. Moderate scattered atherosclerotic calcifications of the coronary arteries are noted. Solid organs: Liver is normal in size and enhancement. Gallbladder is unremarkable. Biliary system is non dilated. Pancreas enhances normally. Spleen is normal in size and enhancement. Stable appearance of left adrenal hypodense nodule measuring approximately 1.2 cm in diameter and 30 Hounsfield units in attenuation. Kidneys demonstrate normal size and enhancement, without hydronephrosis. Tiny punctate nonobstructing left nephrolith. Bilateral ureters are normal in course and caliber. No evidence for ureteral stones. Peritoneum and bowel: No evidence for bowel obstruction. There is a long segment of circumferential wall thickening of small bowel, likely involving the ileum with surrounding inflammatory changes and reactive mesenteric lymph nodes. Small amount of surrounding reactive free fluid. Findings are most pronounced in the mid, midline abdomen. No free air. Nodes and vessels: No retroperitoneal or mesenteric adenopathy by size criteria. Aorta and inferior vena cava are normal in size. Scattered atherosclerotic calcifications of the abdominal aorta and iliac vessels without aneurysmal dilatation. Origins of the mesenteric vessels appear patent. Miscellaneous: Small fat containing periumbilical hernia without acute inflammation. Small fat containing right inguinal hernia without acute inflammation. PELVIS: Genitourinary: Urinary bladder wall thickness appears normal for degree of distension. Prominent prostate gland. Miscellaneous: No pelvic adenopathy. Bones: No suspicious bony lesions. No acute vertebral body compression fractures. Multilevel spondylosis of the imaged spine. IMPRESSION: 1. Long segment of circumferential small bowel wall thickening of the midline, mid abdomen likely involving the ileum. Findings are most consistent with an infectious/inflammatory process. Ischemia felt less likely. No evidence for obstruction. 2. Redemonstration of left adrenal nodule, likely representing an adenoma. 3. Stable appearance of nonobstructing punctate left renal calculus. No hydronephrosis. 4. Atherosclerosis. Other chronic findings as above. Dictated by: Kendall Christensen M.D. on 12/11/2020 at 17:55 Approved by: Kendall Christensen M.D. on 12/11/2020 at 18:05
[2020-12-11 16:54] LABS: Alanine Aminotransferase 13 IU/L (<50); Albumin 3.3 g/dL (3.5-5.0); Albumin Globulin Ratio 1.1 (1.0-2.8); Alkaline Phosphatase 101 U/L (38-126); Aspartate Aminotransferase 19 IU/L (17-59); BUN Creatinine Ratio 18.4 (6-22); Bilirubin Total 0.2 mg/dL (0.2-1.3); Blood Urea Nitrogen 21 mg/dL (9-20); Calcium 8.8 mg/dL (8.4-10.2); Carbon Dioxide 22 mmol/L (22-32); Chloride 103 mmol/L (98-107); Estimated Glomerular Filt Rate > 60.0 mL/min (>60); Glucose 156 mg/dL (80-110); HEMOLYSIS < 15 (0-50); Lipase 92 U/L (23-300); Potassium 4.2 mmol/L (3.4-5.1); Sodium 135 mmol/L (137-145); Total Protein 6.3 g/dL (6.3-8.2)
[2020-12-11] MEDS: MORPHINE 4 MG/ML INJ IV ×2 (17:16→19:58)
[2020-12-11] MEDS: SODIUM CHLORIDE 0.9% 1,000 ML 1000 ML IV (17:16)
[2020-12-11] MEDS: ONDANSETRON 4 MG/2 ML INJ IV (17:16)
[2020-12-11 17:23] LABS: Lactate (Lactic Acid) 2.5 mmol/L (0.7-2.1)
[2020-12-11 18:57] LABS: Reflexed Lactate in 2 Hours Y
[2020-12-11] MEDS: PIPERACILLIN/TAZO 4.5 GM in SODIUM CHLORIDE 0.9% 100 ML 200 ML IV (19:18)
[2020-12-11] MEDS: SODIUM CHLORIDE 0.9% 1,000 ML 125 ML IV (21:31)
[2020-12-11] MEDS: MORPHINE 2 MG/ML INJ IV (23:36)
[2020-12-12] VITALS (44 sets, daily range): BP systolic 81–121; BP diastolic 49–75; PULSE 95–989; RESP 10–36; TEMP 36.1–37.7; O2SAT 87–97; BMI 27.1
--- NOTE | 2020-12-12 | PATH_ITS ---
[facility] Accession Number: [id number] . 01 Material submitted: . small bowel - MID SMALL BOWEL, SUTURE PROXIMAL . 02 Diagnosis: Mid Small Bowel, Segmental Resection: Metastatic melanoma. Small bowel with perforation and serositis. Please see comment. [facility] 12/18/2020 1542 Local . 02 Comment: Metastatic melanoma is present 3 mm from the proximal margin, 7 mm from the distal margin, and 7 mm from the mesenteric margin. . As part of routine quality audit representative, Dr. Chiang reviewed this case on 12/17/2020 and agrees with the diagnosis of malignant neoplasm. Dr. Murphy reviewed this case on 12/18/2020 and agrees with the diagnosis of metastatic melanoma. Sebastián gave preliminary results of poorly differentiated malignant neoplasm to Tereza in Dr. Uriostegui's office on 12/17/2020. . 02 Electronically signed: . Ayse Lowery MD, Pathologist NPI- [id number] . 01 Gross description: . The specimen is received in formalin, labeled mid small bowel, and consists of a 47 cm in length by 7.5 cm in circumference portion of small intestine with two stapled margins and suture designated proximal. The serosa is avila-pink with fibrinous adhesions and avila, purulent exudate with a 0.5 x 0.5 cm sutured transmural defect located 15 cm from the proximal margin. There is a moderate amount of attached avila-yellow mesenteric adipose tissue. Opening reveals a 5.2 x 3.0 cm, avila-pink, nodular lesion with serpiginous borders, located 20.0 cm from the proximal margin and 28 cm from the distal margin. A lesion is located 1.6 cm from the nearest mesenteric margin and is sectioned to reveal extension through the muscularis propria, abutting the serosa (blue) with a maximal thickness of 0.7 cm. There is an additional lesion measuring 6.0 x 4.5 cm, which is avila-pink to green with serpiginous borders, located 15 cm distal to mass #1 and 11 cm from the distal margin. Sectioning reveals extension through the muscularis propria, abutting the serosa and coming to within 1.0 cm from the mesenteric margin. The remaining mucosa is avila-pink with normal mucosal folds and multiple diverticula. The wall thickness ranges from 0.1 cm to 0.8 cm. Sectioning through the attached mesenteric adipose tissue reveals a 0.3 cm, avila-white, firm lymph node. Credit Card Analyst sections are submitted. . A1: Proximal margin, players club representative perpendicular sections (blue). A2: Distal margin, players club representative perpendicular sections (blue). A3-A4: Lesion #1 (serosa inked blue). A5: Closest mesenteric margin, players club representative perpendicular sections from lesion #1 (blue). A6: Lesion #2 in relation to closest mesenteric margin (blue). A7-A8: Additional sections of lesion #2. A9: Sections between lesion #1 and lesion #2. A10: Credit Card Analyst sutured serosal defect (blue). A11: Candidate lymph node. A12-A15: Credit Card Analyst mesenteric adipose tissue. Credit Card Analyst sections were taken for Flow Cytometry. ([id number]) /[facility] 12/14/2020 [facility]9 Local . 02 Microscopic: . Immunohistochemical stains were performed to characterize the cells of interest. All control stains showed appropriate reactivity. . Results: Melan-A: Uniformly positive. SOX-10: Uniformly positive. DARRICK: Negative. CD45: Negative. . Interpretation: The immunophenotype is compatible with metastatic melanoma. All control stains showed appropriate reactivity. . * This test was developed and its performance characteristics determined by [employer]. It has not been cleared or approved by the U.S. Food and Drug Administration. The FDA has determined that such clearance or approval is not necessary. This test is used for clinical purposes. It should not be regarded as investigational or for research. . . . . 02 Pathologist provided ICD-10: C78.4 . 02 CPT . 713804, S32603, [id number] Performed at: 01 [facility] [address] [place] [address], [place], [place] [id number] MD Clark Baez MD Phone: [phone] Performed at: 02 [facility] [address] [place] [address] [place], [place] [id number] MD Ayse Lowery MD Phone: [phone]
--- NOTE | 2020-12-12 00:43 | DI.RAD.S_ITS ---
PROCEDURE: XR CHEST 1V INDICATIONS: Tachycardia, Shortness of breath TECHNIQUE: One view of the chest was acquired. COMPARISON: None. FINDINGS: Surgical changes and devices: Surgical clips in the left axilla. Lungs and pleura: Probable atelectasis in the lung bases.. No pleural effusions or pneumothorax. Lungs are hypoinflated possibly due to poor inspiratory effort. Mediastinum: Mediastinal contours appear normal. Heart size is normal. Bones and chest wall: No suspicious bony lesions. Overlying soft tissues appear unremarkable. IMPRESSION: Probable bibasilar atelectasis. Dictated by: Pratibha Cantu MD, PhD on 12/12/2020 at 7:13 Approved by: Pratibha Cantu MD, PhD on 12/12/2020 at 7:18
[2020-12-12] MEDS: PIPERACILLIN/TAZO 4.5 GM in SODIUM CHLORIDE 0.9% 100 ML 200 ML IV (00:56)
[2020-12-12] MEDS: HYDROMORPHONE 1 MG INJ IV ×2 (00:56→04:31)
[2020-12-12] MEDS: ATORVASTATIN 20 MG TABLET 10 MG PO (03:17)
[2020-12-12 05:19] LABS: Add Manual Diff / Slide Review NO; Basophils Absolute Auto 0 /uL (0-100); Basophils Percent Auto 0.1 % (0-2); Eosinophils Absolute Auto 0 /uL (0-450); Hematocrit 29.4 % (41-53); Hemoglobin 9.7 g/dL (13.5-17.5); Lymphocytes Absolute Auto 700 /uL (1100-4500); Lymphocytes Percent Auto 6.5 % (25-40); Mean Corpuscular HGB Conc 33.1 % (30-36); Mean Corpuscular Hemoglobin 27.3 PG (26-34); Mean Corpuscular Volume 82.3 fL (80-100); Monocytes Absolute Auto 1100 /uL (0-900); Monocytes Percent Auto 10.7 % (3-14); Neutrophils Absolute Auto 8600 /uL (1500-7000); Neutrophils Percent Auto 82.7 % (50-75); Platelet Count 465 X10^3/uL (150-400); Red Blood Cell Count 3.57 X10^6/uL (4.5-5.9); Red Cell Distribution Width 15.5 % (11.6-14.8); White Blood Cell Count 10.5 X10^3/uL (4.5-11.0)
[2020-12-12 05:22] LABS: Alanine Aminotransferase 12 IU/L (<50); Albumin 2.7 g/dL (3.5-5.0); Alkaline Phosphatase 73 U/L (38-126); Aspartate Aminotransferase 27 IU/L (17-59); BUN Creatinine Ratio 17.9 (6-22); Bilirubin Total 0.4 mg/dL (0.2-1.3); Blood Urea Nitrogen 19 mg/dL (9-20); Calcium 7.8 mg/dL (8.4-10.2); Carbon Dioxide 21 mmol/L (22-32); Chloride 107 mmol/L (98-107); Estimated Glomerular Filt Rate > 60.0 mL/min (>60); Globulin 2.7 g/dL (1.7-4.1); Glucose 146 mg/dL (80-110); HEMOLYSIS < 15 (0-50); Potassium 4.3 mmol/L (3.4-5.1); Sodium 135 mmol/L (137-145); Total Protein 5.4 g/dL (6.3-8.2)
[2020-12-12] MEDS: PANTOPRAZOLE DR 40 MG TABLET PO (05:29)
--- NOTE | 2020-12-12 05:47 | PM.CN ---
History of Present Illness Consult details Date Patient Seen: 12/12/20 Time Patient Seen: 05:47 Chief complaint: states severe abd pain Reason for consult: Abdominal pain Narrative: This is a 75-year-old man who has a history of GI bleed, and peptic ulcer. He was due for surveillance EGD today, but came into the ER yesterday with sudden onset severe abdominal pain after eating lunch around noon. Prior to that he was in his usual state of health. In the ER he had a CT scan which was consistent with an inflamed loop of small intestine in the mid abdomen. It was read as no no free air or free fluid. He has not had any vomiting, but has had waves of nausea. He denies any diarrhea, melena, hematochezia. He has been on omeprazole since his EGD, and has not had any symptoms like his current symptoms since his last admission in October for the GI bleed and peptic ulcer. In the ER overnight his pain has not been relieved with narcotic medications, and he is tachycardic in the 120s. He is short of breath, and is requiring oxygen, which appears to be due to not taking a deep breath secondary to severe abdominal pain. ROS: Denies constipation/diarrhea, denies vomiting, reports nausea, denies dysuria, denies obstructive symptoms, reports severe abdominal pain, reports difficulty taking a deep breath due to severe abdominal pain. Thirteen system review is otherwise negative other than as mentioned below and in HPI. PE: GENERAL: Alert, in moderate distress due to abdominal pain. Appears stated age. Answers questions promptly and appropriately. Vital signs noted. HENT: Normocephalic, atraumatic. Hearing intact. EYES: Conjunctiva pink, sclera white, no periorbital swelling. CARDIOVASCULAR: Sinus Tachycardic in the 120s. No pedal edema. RESPIRATORY: Non-tachypneic, breathing comfortably on room air. GASTROINTESTINAL: Abdomen distended, exquisitely tender in the upper and mid abdomen. GENITALURINARY: No flank tenderness. MUSCULOSKELETAL: Equal tone and mass bilaterally. SKIN: Warm, dry, soft, appropriate color for ethnicity. No other lesions, rashes, or wounds. NEURO: Alert and Oriented X 3. No gross sensory deficits, or cognitive issues. PSYCH: Appropriate affect and mood. Meds Home Medications and Allergies Home Medications Medication Instructions Recorded Confirmed Type fluoride (sodium) 1.1 % dental gel 1 applic PO BEDTIME g 10/11/20 11/29/20 History levothyroxine 125 mcg tablet 125 mcg PO DAILY 10/11/20 11/29/20 History ferrous sulfate 325 mg PO BID #60 tab 10/14/20 11/29/20 Rx atorvastatin 10 mg tablet 10 mg PO HS #90 tab 10/28/20 11/29/20 Rx omeprazole 40 mg capsule,delayed 40 mg PO DAILY #60 cap 11/22/20 11/29/20 Rx release cevimeline 30 mg capsule 1 cap PO TID #270 cap 11/29/20 11/29/20 Rx Allergies Allergy/AdvReac Type Severity Reaction Status Date / Time No Known Drug Allergies Allergy Verified 12/11/20 15:47 Exam Vital Signs (past 8 hours): - 12/11/20 22:30 12/12/20 00:14 12/12/20 00:40 Temperature Pulse Rate 120 H 126 H 143 H Respiratory Rate 29 H 29 H 29 H Blood Pressure 109/62 114/72 121/74 Pulse Oximetry 92 93 12/12/20 01:11 12/12/20 05:35 Temperature 98.9 F Pulse Rate 123 H 127 H Respiratory Rate 32 H 36 H Blood Pressure 118/73 102/75 Pulse Oximetry 91 93 Oxygen Delivery Method Nasal Cannula Oxygen Flow Rate [address] scan - abdomen: Radiologist's impression: [address] [id number] Scan ReportSigned Patient: Nick Eid JMR#: [id number]: [id number]:[id number]/Sex: 75 / MDate of Service: 12/11/20Loc: EDAccession Number: [id number] Procedure: CT abdomen pelvis w con Ordering Provider: Candido Atkins D.O. PROCEDURE: CT ABDOMEN PELVIS W CON INDICATIONS: Generalized abdominal pain with distention TECHNIQUE: After the administration of intravenous contrast, 5 mm thick sections acquired from the diaphragm to the symphysis. 5 mm coronal and sagittal reformats were acquired. For radiation dose reduction, the following was used: automated exposure control, adjustment of mA and/or kV according to patient size. COMPARISON: [facility], CT, CT ABDOMEN PELVIS W CON, 10/12/2020, 16:08. FINDINGS: Image quality: Excellent. ABDOMEN: Lung bases: Bibasilar atelectasis. Heart size is normal. Moderate scattered atherosclerotic calcifications of the coronary arteries are noted. Solid organs: Liver is normal in size and enhancement. Gallbladder is unremarkable. Biliary system is non dilated. Pancreas enhances normally. Spleen is normal in size and enhancement. Stable appearance of left adrenal hypodense nodule measuring approximately 1.2 cm in diameter and 30 Hounsfield units in attenuation. Kidneys demonstrate normal size and enhancement, without hydronephrosis. Tiny punctate nonobstructing left nephrolith. Bilateral ureters are normal in course and caliber. No evidence for ureteral stones. Peritoneum and bowel: No evidence for bowel obstruction. There is a long segment of circumferential wall thickening of small bowel, likely involving the ileum with surrounding inflammatory changes and reactive mesenteric lymph nodes. Small amount of surrounding reactive free fluid. Findings are most pronounced in the mid, midline abdomen. No free air. Nodes and vessels: No retroperitoneal or mesenteric adenopathy by size criteria. Aorta and inferior vena cava are normal in size. Scattered atherosclerotic calcifications of the abdominal aorta and iliac vessels without aneurysmal dilatation. Origins of the mesenteric vessels appear patent. Miscellaneous: Small fat containing periumbilical hernia without acute inflammation. Small fat containing right inguinal hernia without acute inflammation. PELVIS: Genitourinary: Urinary bladder wall thickness appears normal for degree of distension. Prominent prostate gland. Miscellaneous: No pelvic adenopathy. Bones: No suspicious bony lesions. No acute vertebral body compression fractures. Multilevel spondylosis of the imaged spine. IMPRESSION: 1. Long segment of circumferential small bowel wall thickening of the midline, mid abdomen likely involving the ileum. Findings are most consistent with an infectious/inflammatory process. Ischemia felt less likely. No evidence for obstruction. 2. Redemonstration of left adrenal nodule, likely representing an adenoma. 3. Stable appearance of nonobstructing punctate left renal calculus. No hydronephrosis. 4. Atherosclerosis. Other chronic findings as above. Dictated by: Kendall Christensen M.D. on 12/11/2020 at 17:55 Approved by: Kendall Christensen M.D. on 12/11/2020 at 18:05 Labs Result Diagrams: 12/12/20 05:00 12/12/20 05:00 Labs: Laboratory Results - last 24 hr 12/11/20 12/11/20 12/11/20 16:20 16:21 16:21 WBC 12.8 H RBC 4.01 L Hgb 10.5 L Hct 32.9 L MCV 82.2 MCH 26.2 MCHC 31.8 RDW 15.2 H Plt Count 583 H Neut % (Auto) 78.4 H Lymph % (Auto) 7.3 L [place] % (Auto) 13.4 Eos % (Auto) 0.7 L Baso % (Auto) 0.2 Neut # (Auto) 23136 H Lymph # (Auto) 900 L [place] # (Auto) 1700 H Eos # (Auto) 100 Baso # (Auto) 0 Sodium 135 L Potassium 4.2 Chloride 103 Carbon Dioxide 22 BUN 21 H Creatinine 1.14 Estimated GFR > 60.0 BUN/Creatinine Ratio 18.4 Glucose 156 H Lactate 2.5 H Calcium 8.8 Total Bilirubin 0.2 AST 19 ALT 13 Alkaline Phosphatase 101 Total Protein 6.3 Albumin 3.3 L Globulin 3.0 Albumin/Globulin Ratio 1.1 Lipase 92 12/11/20 12/12/20 12/12/20 19:15 05:00 05:00 WBC 10.5 RBC 3.57 L Hgb 9.7 L Hct 29.4 L MCV 82.3 MCH 27.3 MCHC 33.1 RDW 15.5 H Plt Count 465 H Neut % (Auto) 82.7 H Lymph % (Auto) 6.5 L [place] % (Auto) 10.7 Eos % (Auto) 0.0 L Baso % (Auto) 0.1 Neut # (Auto) 8600 H Lymph # (Auto) 700 L [place] # (Auto) 1100 H Eos # (Auto) 0 Baso # (Auto) 0 Sodium 135 L Potassium 4.3 Chloride 107 Carbon Dioxide 21 L BUN 19 Creatinine 1.06 Estimated GFR > 60.0 BUN/Creatinine Ratio 17.9 Glucose 146 H Lactate 1.0 Calcium 7.8 L Total Bilirubin 0.4 AST 27 ALT 12 Alkaline Phosphatase 73 Total Protein 5.4 L Albumin 2.7 L Globulin 2.7 Albumin/Globulin Ratio 1.0 Lipase Assessment & Plan Assessment and plan (1) Acute abdomen: Status: Acute (2) Abnormal CT scan, gastrointestinal tract: Status: Acute (3) Tachycardia: Status: Acute (4) History of peptic ulcer: Status: Acute (5) 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 His CT scan shows a long segment of bowel wall thickening in the small intestine. I came in to see him this morning because he was supposed to have an EGD today, and I was told he had come into the ER with an enteritis. This morning I looked at his chart and noted that his heart rate was in the 120s, and when I came to see him he appears clinically quite ill. I spoke to him about my concern that he may have threatened or bowel, and that I think we would need to take a look with the camera in the abdomen in order to rule that out. If I do find that he has gut, we may need to do a bowel resection. I spoke with him about this. I explained that he may need full length midline incision. We will call in the operating room staff, and delay my other cases this morning in order to urgently take him to the operating room. Plan: Diagnostic laparoscopy, possible laparotomy, possible bowel resection NPO, IV fluids, IV pain meds, IV antiemetics, IV antibiotics, hold Lovenox COVID-19 COVID-19 status: Negative Result date/Date tested (Pos, Neg/Pending): 12/11/20 Time Spent With Patient Time with patient: 25 - 35 minutes
--- NOTE | 2020-12-12 06:00 | PC.NURSE ---
Dr Uriostegui in to see patient. Decide to take patient surgery. Page out to dr. Regalado to inform of update.
[2020-12-12] MEDS: SODIUM CHLORIDE 0.9% 1,000 ML 1000 ML IV (06:20)
[2020-12-12] MEDS: LACTATED RINGERS 1,000 ML 100 ML IV ×3 (07:00→09:38)
[2020-12-12] MEDS: PIPERACILLIN/TAZO 3.375 GM in SODIUM CHLORIDE 0.9% 100 ML 25 ML IV ×2 (07:33→15:13)
--- NOTE | 2020-12-12 07:49 | SUR.OPER ---
Supine on padded OR bed, head on pillow, arms padded and tucked at sides, legs uncrossed, safety belt at thigh, tape over blanket over lower legs .
[2020-12-12] MEDS: BUPIVACAINE 0.5% W/ EPI (PF) 30 ML VIAL INJ (08:14)
[2020-12-12] MEDS: BUPIVACAINE LIPOSOME 266 MG/20 ML VIAL INJ (09:27)
[2020-12-12] MEDS: fentaNYL 100 MCG/2 ML INJ IV (10:09)
--- NOTE | 2020-12-12 10:09 | PM.OP.1 ---
Operative Date/Time/Diagnoses Date of procedure: 12/12/20 Time of procedure: 10:09 Pre-op diagnosis: Acute abdomen Post-op diagnosis: other (Diffuse neoplastic process in the small bowel, perforation of mid small bowel with gross spillage of succus into the abdomen) Procedure & Clinicians Procedure: Diagnostic laparoscopy Laparotomy Resection of 1 ft of small bowel Primary hand-sewn anastomosis Washout of abdomen with 3 L of warm saline Same procedure as scheduled: Yes Indications: Acute abdomen, perforated small bowel Surgeon: Roxanna Uriostegui Anesthesia Type: General Operative Notes Findings: Diffuse neoplastic appear nodules throughout the small bowel Perforation of in small bowel with gross spillage of succus into the abdomen Specimen(s): other (About 1 ft of Mid small bowel, tissue for lymphoma) Estimated Blood Loss (mL): 30 Procedure in detail: Laparoscopy Hand port Laparotomy Ran the entire small bowel Nodules throughout Perforation of mid small Resected 1 ft of small bowel in order remove the section that was perfect, and to reach decent bowel to reanastomose Hand-sewn end-to-end anastomosis in 2 layers Tested for leak No leak Washout with 3 L of warm saline 45 mL of 0.5% with epi for local Right lower quadrant 19 round Rodríguez drain 20 mL of Exparel Close midline with running 0 PDS, 0 Vicryl [id number] Skin clint Complications: none Post-operative Condition: stable Disposition: PACU
--- NOTE | 2020-12-12 10:21 | P.HP_ITS ---
History of Present Illness History of Present Illness Date Patient Seen: 12/12/20 Chief complaint: states severe abd pain Narrative: 75-year-old male recently admitted to the hospital with evidence of upper GI bleed was scheduled to have repeat routine upper endoscopy on December 12 presented with rather acute onset of severe mid epigastric abdominal pain. Came to the ER and was found to have an elevated white blood cell count and on CT imaging evidence of an enteritis. He was modestly tachycardic and borderline hypotensive (although he is generally somewhat hypotensive with systolic blood pressure in the 110-125 range). Surgery was consulted and he was started on IV antibiotics With time he did not really improve was seen in person by General surgery who felt like he required an urgent evaluation for possible ischemic bowel etcetera. 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 Small bowel resection was performed with reanastomosis. Per surgery, appearance of lesions were not clear or classic lymphoma or even melanoma. 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) Melanoma Mixed hyperlipidemia (08/14/15) Surgical History H/O melanoma excision (~2017) Family & Social History Family History Father Congestive heart failure Mother Congestive heart failure Brother Brain tumor Sister Cancer Social History: household members spouse Safety & Behavioral: Feels Safe in Current Yes Environment Been Physically Hurt or No Threatened By a Person Tobacco & Substance use: Smoking Status Former smoker alcohol intake never alcohol intake frequency holiday/special occasion Substance Use Type does not use Meds Home Medications and Allergies Home Medications Medication Instructions Recorded Confirmed Type fluoride (sodium) 1.1 % dental gel 1 applic PO BEDTIME g 10/11/20 11/29/20 History levothyroxine 125 mcg tablet 125 mcg PO DAILY 10/11/20 11/29/20 History ferrous sulfate 325 mg PO BID #60 tab 10/14/20 11/29/20 Rx atorvastatin 10 mg tablet 10 mg PO HS #90 tab 10/28/20 11/29/20 Rx omeprazole 40 mg capsule,delayed 40 mg PO DAILY #60 cap 11/22/20 11/29/20 Rx release cevimeline 30 mg capsule 1 cap PO TID #270 cap 11/29/20 11/29/20 Rx Allergies Allergy/AdvReac Type Severity Reaction Status Date / Time No Known Drug Allergies Allergy Verified 12/11/20 15:47 Review of Systems Review of Systems ROS: Yes unobtainable due to mental status Exam Vital Signs (past 8 hours): - 12/12/20 02:59 12/12/20 03:00 12/12/20 03:30 Temperature Pulse Rate 115 H 115 H 115 H Respiratory Rate 27 H 24 28 H Blood Pressure 106/60 107/62 Pulse Oximetry 90 L 90 L 93 12/12/20 04:00 12/12/20 04:30 12/12/20 05:00 Temperature Pulse Rate 114 H 121 H 124 H Respiratory Rate 28 H 34 H 32 H Blood Pressure 106/61 116/67 103/59 L Pulse Oximetry 93 95 89 L 12/12/20 05:30 12/12/20 05:31 12/12/20 05:35 Temperature Pulse Rate 129 H 129 H 127 H Respiratory Rate 36 H 29 H 36 H Blood Pressure 102/75 102/75 Pulse Oximetry 93 92 93 12/12/20 06:00 12/12/20 06:30 12/12/20 06:57 Temperature 100 F H Pulse Rate 125 H 122 H Respiratory Rate 28 H 28 H Blood Pressure 99/57 L 103/55 L Pulse Oximetry 92 93 Oxygen Delivery Method Nasal Cannula Oxygen Flow Rate 5 Narrative Exam Narrative: Elderly male who is somnolent sedated minimally arousable lying in his hospital bed with a non-rebreather mask in place having just come up from the recovery room HEENT-unremarkable Lungs-good breath sounds no wheezes no crackles Heart-tachycardic no murmur Abdomen-no bowel tones midline incision with dressing in place Extremities-no cyanosis clubbing or edema Objective Labs Result Diagrams: 12/12/20 05:00 12/12/20 05:00 Labs: Laboratory Results - last 24 hr 12/11/20 12/11/20 12/11/20 16:20 16:21 16:21 WBC 12.8 H RBC 4.01 L Hgb 10.5 L Hct 32.9 L MCV 82.2 MCH 26.2 MCHC 31.8 RDW 15.2 H Plt Count 583 H Neut % (Auto) 78.4 H Lymph % (Auto) 7.3 L [place] % (Auto) 13.4 Eos % (Auto) 0.7 L Baso % (Auto) 0.2 Neut # (Auto) 08330 H Lymph # (Auto) 900 L [place] # (Auto) 1700 H Eos # (Auto) 100 Baso # (Auto) 0 Sodium 135 L Potassium 4.2 Chloride 103 Carbon Dioxide 22 BUN 21 H Creatinine 1.14 Estimated GFR > 60.0 BUN/Creatinine Ratio 18.4 Glucose 156 H Lactate 2.5 H Calcium 8.8 Total Bilirubin 0.2 AST 19 ALT 13 Alkaline Phosphatase 101 Total Protein 6.3 Albumin 3.3 L Globulin 3.0 Albumin/Globulin Ratio 1.1 Lipase 92 12/11/20 12/12/20 12/12/20 19:15 05:00 05:00 WBC 10.5 RBC 3.57 L Hgb 9.7 L Hct 29.4 L MCV 82.3 MCH 27.3 MCHC 33.1 RDW 15.5 H Plt Count 465 H Neut % (Auto) 82.7 H Lymph % (Auto) 6.5 L [place] % (Auto) 10.7 Eos % (Auto) 0.0 L Baso % (Auto) 0.1 Neut # (Auto) 8600 H Lymph # (Auto) 700 L [place] # (Auto) 1100 H Eos # (Auto) 0 Baso # (Auto) 0 Sodium 135 L Potassium 4.3 Chloride 107 Carbon Dioxide 21 L BUN 19 Creatinine 1.06 Estimated GFR > 60.0 BUN/Creatinine Ratio 17.9 Glucose 146 H Lactate 1.0 Calcium 7.8 L Total Bilirubin 0.4 AST 27 ALT 12 Alkaline Phosphatase 73 Total Protein 5.4 L Albumin 2.7 L Globulin 2.7 Albumin/Globulin Ratio 1.0 Lipase Assessment & Plan Assessment & Plan narrative: 1. 75-year-old male now status post bowel resection due to perforated viscus with spillage of contents into the abdominal cavity. Postoperative management as per General surgery. Patient currently minimally hypotensive and tachycardic. Probably needs additional fluids but has just returned from recovery room and just getting plugged in to the intensive care unit 2. Intra-abdominal neoplastic process-await pathology for etiology. Will need to recover from his surgery of course before any treatment can be entertained. Patient has active connection with [facility] regarding his melanoma anyway will likely return therefore treatment 3. VTE prophylaxis- SCDs and then initiate low-molecular weight heparin when okay with General surgery 4. Hyperlipidemia, hypothyroidism, ADD etcetera-continue patient's usual medications when able to take orals as per surgery. Will hold medications for now. Patient would clearly be in the hospital as an inpatient for several days that will span at least 2 separate midnights. Findings at time of surgery discussed with patient's spouse who is in the room with him here in the hospital, she has a full understanding of the fact that disseminated malignancy was found within the small bowel that he had a perforation of the small bowel including serious potential for infection with spillage of bowel contents into the abdominal cavity etcetera. He will be in the hospital for several more days and we will await pathology for details regarding what kind of neoplasm is affecting him. She went to ensure that his oncologist at [facility] was kept up-to-date and we certainly will do that once we have pathology and basically something to update him with I also discussed his findings at surgery with his oncologist in [place] at [facility], Dr. Bull. She pointed out that the biologic he has been receiving for his melanoma (nivolumab) can cause colonic inflammation as a potential side effect but she did not think that that medication has anything to do with what was found at time of surgery with small bowel issues and or obviously the metastatic disease. Her contact information is available under workload in the patient's chart, under OTHER CLINICAL
[2020-12-12] MEDS: SODIUM CHLORIDE 0.9% 500 ML 1000 ML IV ×3 (12:35→17:46)
[2020-12-12] MEDS: SODIUM CHLORIDE 0.9% 1,000 ML 125 ML IV (12:50)
--- NOTE | 2020-12-12 16:39 | PC.NURSE ---
Notified Dr. Hernandez of pt BP, that SBP has been in the mid to high 80s, 91 at the highest. NS at 200mls/hr, 50-0 cc bolus given. MAP in the low to mid 60s, HR 100-109. UOP [id number] since I came on shift. Per Dr. Hernandez, keep watching pt a few hours and see how he responds to fluids before doing anything more.
[2020-12-12 17:31] LABS: Add Manual Diff / Slide Review NO; Basophils Absolute Auto 0 /uL (0-100); Basophils Percent Auto 0.1 % (0-2); Eosinophils Absolute Auto 0 /uL (0-450); Hematocrit 25.4 % (41-53); Hemoglobin 8.3 g/dL (13.5-17.5); Lymphocytes Absolute Auto 300 /uL (1100-4500); Lymphocytes Percent Auto 3.2 % (25-40); Mean Corpuscular HGB Conc 32.6 % (30-36); Mean Corpuscular Hemoglobin 26.9 PG (26-34); Mean Corpuscular Volume 82.4 fL (80-100); Monocytes Absolute Auto 700 /uL (0-900); Monocytes Percent Auto 6.8 % (3-14); Neutrophils Absolute Auto 9000 /uL (1500-7000); Neutrophils Percent Auto 89.9 % (50-75); Platelet Count 380 X10^3/uL (150-400); Red Blood Cell Count 3.09 X10^6/uL (4.5-5.9); Red Cell Distribution Width 15.4 % (11.6-14.8)
[2020-12-12 17:34] LABS: BUN Creatinine Ratio 18.5 (6-22); Blood Urea Nitrogen 17 mg/dL (9-20); Carbon Dioxide 23 mmol/L (22-32); Chloride 108 mmol/L (98-107); Estimated Glomerular Filt Rate > 60.0 mL/min (>60); Glucose 163 mg/dL (80-110); HEMOLYSIS < 15 (0-50); Magnesium 1.7 mg/dL (1.6-2.3); Potassium 4.4 mmol/L (3.4-5.1); Sodium 134 mmol/L (137-145)
[2020-12-12] MEDS: MAGNESIUM SULFATE 2 GM/50 ML PIGGYBACK IV (19:00)
[2020-12-12] MEDS: PANTOPRAZOLE 40 MG VIAL IV (21:53)
--- NOTE | 2020-12-12 23:35 | PC.NURSE ---
Pt originally on 13L NRB at start of shift. Was able to titrate down to 8L by 1720 with pt oxygen saturation in the mid 90s. Pt on nasal cannula at 6L by end of my shift. Pt SBP in the low 80s-90s for the entirety of my shift. Dr. Hernandez notified at 1445 by Hannah, ordered a 500cc bolus x1 and fluid rate increase to 200mLs/hr. MAP did not change after bolus, remaining around 62-65. Dr Hernandez notified at 1700, MD present in person at 1730. Ordered another 500cc bolus and fluid increase to 250mls/hr. Dr. Uriostegui aware of blood pressures and pt status as well. Otherwise, pt did not complain of pain. Instructed on deep breathing. Heart rate sinus rhythm to sinus tachycardia in the low 100s.
[2020-12-13] VITALS (11 sets, daily range): BP systolic 87–130; BP diastolic 51–63; PULSE 45–92; RESP 17–23; TEMP 36.2–36.9; O2SAT 93–96
[2020-12-13] MEDS: PIPERACILLIN/TAZO 3.375 GM in SODIUM CHLORIDE 0.9% 100 ML 25 ML IV ×3 (00:09→15:35)
[2020-12-13] MEDS: SODIUM CHLORIDE 0.9% 1,000 ML 250 ML IV ×4 (00:23→12:44)
[2020-12-13 04:51] LABS: Add Manual Diff / Slide Review NO; Basophils Absolute Auto 0 /uL (0-100); Eosinophils Absolute Auto 0 /uL (0-450); Hematocrit 24.1 % (41-53); Hemoglobin 7.8 g/dL (13.5-17.5); Lymphocytes Absolute Auto 300 /uL (1100-4500); Lymphocytes Percent Auto 3.8 % (25-40); Mean Corpuscular HGB Conc 32.4 % (30-36); Mean Corpuscular Hemoglobin 26.7 PG (26-34); Mean Corpuscular Volume 82.5 fL (80-100); Monocytes Absolute Auto 800 /uL (0-900); Monocytes Percent Auto 8.7 % (3-14); Neutrophils Absolute Auto 7800 /uL (1500-7000); Neutrophils Percent Auto 87.5 % (50-75); Platelet Count 332 X10^3/uL (150-400); Red Blood Cell Count 2.92 X10^6/uL (4.5-5.9); Red Cell Distribution Width 15.2 % (11.6-14.8); White Blood Cell Count 8.9 X10^3/uL (4.5-11.0)
[2020-12-13 05:15] LABS: Magnesium 2.3 mg/dL (1.6-2.3)
[2020-12-13 05:16] LABS: BUN Creatinine Ratio 20.5 (6-22); Blood Urea Nitrogen 17 mg/dL (9-20); Calcium 7.3 mg/dL (8.4-10.2); Carbon Dioxide 23 mmol/L (22-32); Chloride 111 mmol/L (98-107); Estimated Glomerular Filt Rate > 60.0 mL/min (>60); Glucose 144 mg/dL (80-110); HEMOLYSIS < 15 (0-50); Potassium 4.1 mmol/L (3.4-5.1); Sodium 136 mmol/L (137-145)
--- NOTE | 2020-12-13 07:55 | P.PN_ITS ---
Subjective Subjective Date Patient Seen: 12/13/20 Time Patient Seen: 07:55 Interval history: Patient had a reasonably good night. Got some rest off and on. Wide awake alert really has no complaints of there is some incisional pain when he coughs a bit. Overnight blood pressures have remained on the low side but have been stable. His oxygen requirement is significantly diminished over where was postop now on merely 2 L and may even be able to wean further down Urine output has been rather limited given the IV fluids he has received. He is probably up at least 4 L since he arrived on the floor. Continues to receive normal saline at 250 cc an hour Lab work shows he is somewhat anemic, but stable, and chemistries are unremarkable Exam Vital Signs (past 8 hours): - 12/13/20 04:30 12/13/20 06:26 Pulse Rate 92 H 89 Respiratory Rate 23 17 Blood Pressure 97/55 L Pulse Oximetry 94 94 Oxygen Delivery Method Nasal Cannula Oxygen Flow Rate 2 Narrative Exam Narrative: Lungs-clear with good breath sounds Heart-regular rate and rhythm Abdomen-no bowel tones, augie-incisional tenderness no rebound or guarding however no distension Extremities-somewhat pale, trace to 1+ edema at the ankles bilaterally Objective Labs Result Diagrams: 12/13/20 04:23 12/13/20 04:23 Labs: Laboratory Results - last 24 hr 12/12/20 12/12/20 12/12/20 11:59 17:13 17:13 WBC 10.0 RBC 3.09 L Hgb 8.3 L Hct 25.4 L MCV 82.4 MCH 26.9 MCHC 32.6 RDW 15.4 H Plt Count 380 Neut % (Auto) 89.9 H Lymph % (Auto) 3.2 L [place] % (Auto) 6.8 Eos % (Auto) 0.0 L Baso % (Auto) 0.1 Neut # (Auto) 9000 H Lymph # (Auto) 300 L [place] # (Auto) 700 Eos # (Auto) 0 Baso # (Auto) 0 Sodium 134 L Potassium 4.4 Chloride 108 H Carbon Dioxide 23 BUN 17 Creatinine 0.92 Estimated GFR > 60.0 BUN/Creatinine Ratio 18.5 Glucose 163 H Calcium 8.0 L Magnesium 1.7 Nasal Screen MRSA (PCR) Negative for mrsa Blood Type Antibody Screen 12/13/20 12/13/20 12/13/20 04:23 04:23 04:23 WBC 8.9 RBC 2.92 L Hgb 7.8 L Hct 24.1 L MCV 82.5 MCH 26.7 MCHC 32.4 RDW 15.2 H Plt Count 332 Neut % (Auto) 87.5 H Lymph % (Auto) 3.8 L [place] % (Auto) 8.7 Eos % (Auto) 0.0 L Baso % (Auto) 0.0 Neut # (Auto) 7800 H Lymph # (Auto) 300 L [place] # (Auto) 800 Eos # (Auto) 0 Baso # (Auto) 0 Sodium 136 L Potassium 4.1 Chloride 111 H Carbon Dioxide 23 BUN 17 Creatinine 0.83 Estimated GFR > 60.0 BUN/Creatinine Ratio 20.5 Glucose 144 H Calcium 7.3 L Magnesium Nasal Screen MRSA (PCR) Blood Type B Positive Antibody Screen Negative 12/13/20 04:23 WBC RBC Hgb Hct MCV MCH MCHC RDW Plt Count Neut % (Auto) Lymph % (Auto) [place] % (Auto) Eos % (Auto) Baso % (Auto) Neut # (Auto) Lymph # (Auto) [place] # (Auto) Eos # (Auto) Baso # (Auto) Sodium Potassium Chloride Carbon Dioxide BUN Creatinine Estimated GFR BUN/Creatinine Ratio Glucose Calcium Magnesium 2.3 Nasal Screen MRSA (PCR) Blood Type Antibody Screen [facility] Medical History Acquired hypothyroidism 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 Postop day 1 status post exploratory laparotomy with small-bowel resection after perforation of small bowel with spillage of contents. No evidence of active infectious issue. I believe he still is somewhat volume depleted as indicated by his relatively low blood pressure and minimal urine output. Continue with vigorous IV fluids at least over the next several hours and continue monitor carefully. Continue with IV antibiotics and continue with NG suction awaiting return of bowel function which will likely be days down the road. 2. Intra-abdominal malignancy-patient clearly with nodules of neoplastic disease on his small bowel. Awaiting pathology of surgical specimen for details regarding this tumor. Most likely would be melanoma, as discussed with patient's oncologist yesterday. However awaiting pathology and obviously patient will need to recover from this procedure prior to any thoughts regarding change in therapies etcetera 3. Electrolyte/renal/nutrition-patient's renal function is stable. Urine output minimal but not 0. Electrolytes stable. Continue with current IV fluids withou t change for now anyway. Anticipate hopefully later today being able to back off on IV fluids. Will defer to General surgery regarding thoughts about potential need for TPN etcetera. 4. Patient remains off his usual medications for his thyroid his lipids etcetera given that he is NPO. Okay to remain off for now. Hopefully he will have sooner rather than later return of bowel function 5. VTE prophylaxis-continue with sequential compression devices. Initiate Lovenox therapy when okay with surgery
[2020-12-13] MEDS: ENOXAPARIN 40 MG/0.4 ML SYRINGE SUBCUT (08:37)
[2020-12-13] MEDS: PANTOPRAZOLE 40 MG VIAL IV ×2 (08:37→20:40)
--- NOTE | 2020-12-13 10:06 | PC.NURSE ---
Removed O2 for RA trial. Pt noted to desat to 87% intermittently while asleep. Maintained SPO2 87-91% during this time. Reapplied O2 at 2L NC. SPO2 increased to 93%. Pt denies shortness of breath. He is hesitant to cough and deep breathe/use IS due to the pain it causes. He is hesitant to utilize PRN rx for pain for personal reasons. Educated to importance of pulmonary hygiene as well as progressive mobility for healing and preventing complications. He verbalizes understanding and is willing to accept after talking to MD regarding reducing dosage.
--- NOTE | 2020-12-13 12:39 | DIET.PN ---
Dietary Progress Note Assessment: 75y M presented to ED c abdominal px found to have perforated small bowel c spillage c likely diffuse neoplastic nodules throughout requiring 1 ft small bowel removal c anastamosis referred to nutrition for reported severe weight loss. Pt currently being treated c radx therapy at [facility] for melanoma with brain involvement. Pt reports recent fatigue and weakness. Per chart review, pt has seen PCP here at several times over past few months with associated weight recordings indicating unintentional weight loss. Pt has 3% unintentional weight loss in 1w (severe) and 6.3% in 6w (severe). Pt is currently NPO awaiting return of bowel function. HT: 182.8cm WT: 90.7kg UBW: 96kg (10/30) BMI: 27.1 Labs: hgb 7.8 L, BG 144 H MNA: 10 @ risk for malnutrition Farhad: 15 high risk for skin breakdown Nutrition Diagnosis: Severe Acute PCM r/t fatigue and likely metastatic process aeb 3% unintentional weight loss in 3w and 6.3% in 6w (severe), pt currently being treated c radx for melanoma c new findings of neoplastic process in small bowel, pt NPO post-surgery awaiting return of bowel function. Interventions: 1. Awaiting return of bowel function to begin nutrient repletion vs surgical opinion on beginning nutrition support via TPN. Diet Order: NPO EER: 1800kcal (20kcal/kg per overweight PCM), 117g PRO (1.3g/kg per PCM) Monitoring/Evaluations: return of bowel fxn, diet advancement, request for nutrition support.
[2020-12-13] MEDS: DEXTROSE 5%-LACTATED RINGERS 1,000 ML 125 ML IV (13:54)
[2020-12-13] MEDS: KETOROLAC 30 MG/ML VIAL 15 MG IV ×2 (13:54→22:01)
--- NOTE | 2020-12-13 15:56 | CM.DANOTE ---
Discharge Planning/Care Management DCP: assessment: initiated: case received and discussed in Team Rounds and later as more was known. Pt is a 75 yea old male who admitted yesterday to care of PCP: Dr. Hernandez. He was in the ER for some time on 12/11 and then taken to surgery directly by Dr. Uriostegui. Arrived to ICU on acute care floor/ICU bed 12/12. Pt receives care at the [facility] for treatment of melanoma with brain involvement and his oncologist was consulted by the providers. Payer: [employer] and Medicare. admission status: INPT: 12/12 Pt now is post of day one exploratory laparotomy with small bowel resection after perforation of small bowel with spillage of contents. Apparent cancerous lesions were found. Pt is expected to be here for several days. Pt is currently on IV fluids and IV antibiotics with NGT in place. [facility]ni is consulting. Consideration of TPN. DCP team will be following as POC unfolds to assist with d/c issues and options as more is known. Pt lives with his Patti in [place]. CM Discharge Assessment Start: 12/13/20 15:53 Freq: Status: Active Protocol: Document 12/13/20 15:54 ITV (Rec: 12/13/20 15:55 ITV [id number]) Discharge Planning Assessment Advance Directives? No History Provided By Medical Record Has Patient been admitted in last 30 No days? Prior Living Arrangements House Household Members spouse
[2020-12-13] MEDS: DEXTROSE 5%-LACTATED RINGERS 1,000 ML 200 ML IV (21:25)
--- NOTE | 2020-12-13 22:06 | PM.PNPO.1 ---
Subjective Subjective Date Patient Seen: 12/13/20 Time Patient Seen: 22:06 Interval history: Patient is a gentleman who underwent a small-bowel resection for tumor that it caused a perforation. He is pretty comfortable till he coughs or moves. Exam Vital Signs (past 8 hours): - 12/13/20 14:41 12/13/20 16:00 12/13/20 19:33 Temperature 97.7 F Pulse Rate 74 87 Respiratory Rate 20 18 Blood Pressure 87/52 L Pulse Oximetry 94 93 96 12/13/20 19:55 Temperature 97.7 F Pulse Rate 78 Respiratory Rate 17 Blood Pressure 98/56 L Pulse Oximetry 96 Oxygen Delivery Method Nasal Cannula,Humidification Oxygen Flow Rate 1 Narrative Exam Narrative: Good respiratory effort. Sounds fairly clear. Heart regular rate and rhythm. Abdomen is distended but soft. Appropriately tender. Dressings are intact. Urine output has been falling through the day. His IV fluids have been increased. Objective Labs Result Diagrams: 12/13/20 04:23 12/13/20 04:23 Labs: Laboratory Results - last 24 hr 12/13/20 12/13/20 12/13/20 04:23 04:23 04:23 WBC 8.9 RBC 2.92 L Hgb 7.8 L Hct 24.1 L MCV 82.5 MCH 26.7 MCHC 32.4 RDW 15.2 H Plt Count 332 Neut % (Auto) 87.5 H Lymph % (Auto) 3.8 L [place] % (Auto) 8.7 Eos % (Auto) 0.0 L Baso % (Auto) 0.0 Neut # (Auto) 7800 H Lymph # (Auto) 300 L [place] # (Auto) 800 Eos # (Auto) 0 Baso # (Auto) 0 Sodium 136 L Potassium 4.1 Chloride 111 H Carbon Dioxide 23 BUN 17 Creatinine 0.83 Estimated GFR > 60.0 BUN/Creatinine Ratio 20.5 Glucose 144 H Calcium 7.3 L Magnesium Blood Type B Positive Antibody Screen Negative 12/13/20 04:23 WBC RBC Hgb Hct MCV MCH MCHC RDW Plt Count Neut % (Auto) Lymph % (Auto) [place] % (Auto) Eos % (Auto) Baso % (Auto) Neut # (Auto) Lymph # (Auto) [place] # (Auto) Eos # (Auto) Baso # (Auto) Sodium Potassium Chloride Carbon Dioxide BUN Creatinine Estimated GFR BUN/Creatinine Ratio Glucose Calcium Magnesium 2.3 Blood Type Antibody Screen [facility] Medical History Acquired hypothyroidism 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) Gastric ulcer 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 Has a multitude of residual tumor in his small bowel. Postoperative plan narrative: Supportive care. Adjust fluids. Labs in the morning. Doing pretty much as expected today.
[2020-12-14] VITALS (12 sets, daily range): BP systolic 94–133; BP diastolic 52–67; PULSE 63–101; RESP 11–30; TEMP 36.2–36.8; O2SAT 91–98
[2020-12-14] MEDS: PIPERACILLIN/TAZO 3.375 GM in SODIUM CHLORIDE 0.9% 100 ML 25 ML IV ×3 (00:24→16:21)
[2020-12-14] MEDS: DEXTROSE 5%-LACTATED RINGERS 1,000 ML 200 ML IV (02:40)
[2020-12-14 05:17] LABS: Add Manual Diff / Slide Review NO; Basophils Absolute Auto 0 /uL (0-100); Eosinophils Absolute Auto 0 /uL (0-450); Eosinophils Percent Auto 0.1 % (2-4); Hemoglobin 7.7 g/dL (13.5-17.5); Lymphocytes Absolute Auto 400 /uL (1100-4500); Lymphocytes Percent Auto 4.1 % (25-40); Mean Corpuscular HGB Conc 32.6 % (30-36); Mean Corpuscular Hemoglobin 26.9 PG (26-34); Mean Corpuscular Volume 82.6 fL (80-100); Monocytes Absolute Auto 800 /uL (0-900); Monocytes Percent Auto 9.1 % (3-14); Neutrophils Absolute Auto 8100 /uL (1500-7000); Neutrophils Percent Auto 86.7 % (50-75); Platelet Count 357 X10^3/uL (150-400); Red Blood Cell Count 2.86 X10^6/uL (4.5-5.9); Red Cell Distribution Width 14.9 % (11.6-14.8); White Blood Cell Count 9.3 X10^3/uL (4.5-11.0)
[2020-12-14 05:20] LABS: Hematocrit 23.7 % (41-53)
[2020-12-14 05:26] LABS: Blood Urea Nitrogen 22 mg/dL (9-20); Calcium 7.3 mg/dL (8.4-10.2); Carbon Dioxide 22 mmol/L (22-32); Chloride 112 mmol/L (98-107); Estimated Glomerular Filt Rate > 60.0 mL/min (>60); Glucose 166 mg/dL (80-110); HEMOLYSIS < 15 (0-50); Magnesium 2.4 mg/dL (1.6-2.3); Potassium 3.8 mmol/L (3.4-5.1); Sodium 138 mmol/L (137-145)
[2020-12-14] MEDS: KETOROLAC 30 MG/ML VIAL 15 MG IV ×2 (06:04→17:38)
--- NOTE | 2020-12-14 06:46 | PC.NURSE ---
Financial Services Agent Note-Patient is A/Ox4, drowsy with flat affect. 1 unit PRBC infused, tolerated well, D5LR @ 200ml/hr, scheduled abx given. Patient went to -[facility] at 0535, verified by EKG, and reported to Dr Hernandez, no new orders received at this time, he will be into see patient this morning Patient is asymptomatic, denies chest pain or palpitations, BP 127/60(86) on Lt calf, SpO2 92%. 200ml UOP, 50ml output in DANIEL.
[2020-12-14] MEDS: PANTOPRAZOLE 40 MG VIAL IV ×2 (09:05→21:04)
[2020-12-14] MEDS: ENOXAPARIN 40 MG/0.4 ML SYRINGE SUBCUT (09:06)
[2020-12-14] MEDS: LEVOTHYROXINE 125 MCG TABLET PO (09:11)
--- NOTE | 2020-12-14 09:14 | DI.ECHO.S_ITS ---
[facility]---------+ [facility] +---------+ : : [address] : : : : [id number] : : : : Phone: [phone] Echocardiogram Report + + :Name: JESSA SORTO Study Date: 12/14/2020 Height: 72 in : :[facility] ReadingLocation: Weight: 199 lb : : Gender: Male BSA: 2.1 m2 : :: 1945 Age: 75 yrs BP: 113/56 mmHg: :Reason For Study: MURMUR, AFIB : :Ordering Physician: JULIO, : :JENNIFER Alexandre Performed By: Nancy Gil : :Referring: JENNIFER KIM : + + Interpretation Summary The left ventricle is normal in size and wall thickness. Left ventricular systolic function is low normal. The ejection fraction is estimated to be 50- 55%. There are no obvious focal wall motion abnormalities noted but poor endocardial definition reduces the sensitivity for the detection of such. Diastolic parameters suggest probable normal left ventricular diastolic function and normal filling pressures. The right ventricle is at the upper limits of normal in size. The right ventricular systolic function is normal. The right ventricular systolic pressure is estimated to be at least 26 mmHg based on an estimated right atrial pressure of 3 mm Hg. The left atrium is moderately dilated. Right atrial size is normal. There is mild mitral regurgitation. There is mild aortic stenosis. The peak aortic velocity is 2.6 m/sec. The calculated aortic valve area is 1.7 cm2. There is mild aortic regurgitation. The aortic root is normal size. Procedure: A two-dimensional transthoracic echocardiogram with color flow and Doppler was performed. The study quality was technically adequate. There is no prior echocardiogram noted for this patient. The patient was in sinus rhythm with heart rates between 64-77 bpm during the exam. Left Ventricle: The left ventricle is normal in size and wall thickness. Left ventricular systolic function is low normal. The ejection fraction is estimated to be 50-55%. There are no obvious focal wall motion abnormalities noted but poor endocardial definition reduces the sensitivity for the detection of such. Diastolic parameters suggest probable normal left ventricular diastolic function and normal filling pressures. Right Ventricle: The right ventricle is at the upper limits of normal in size. The right ventricular systolic function is normal. Atria: The left atrium is moderately dilated. Right atrial size is normal. There is no Doppler evidence for an interatrial shunt. Mitral Valve: There is mild mitral annular calcification. The mitral valve leaflets appear mildly thickened, but open well. There is mild mitral regurgitation. Aortic Valve: The aortic valve is not well visualized. The aortic valve is moderately calcified. There is mild aortic stenosis. The peak aortic velocity is 2.6 m/sec. The aortic valve mean gradient is 15 mmHg. The calculated aortic valve area is 1.7 cm2. There is mild aortic regurgitation. Tricuspid Valve: The tricuspid valve is normal in structure and function. There is mild tricuspid regurgitation. The right ventricular systolic pressure is estimated to be at least 26 mmHg based on an estimated right atrial pressure of 3 mm Hg. Pulmonic Valve: The pulmonic valve is not well visualized. There is no pulmonic valvular regurgitation. Great Vessels: The aortic root is normal size. The ascending aorta is at the upper limits of normal in size. The inferior vena cava was not visualized. Pericardium/ Pleura There is no pericardial effusion. There is no pleural effusion. MMode/2D Measurements & Calculations LVIDd: 4.4 cm LVOT diam: 2.5 cm LVIDs: 3.2 cm Ao root diam: 3.4 cm FS: 27.4 % asc Aorta Diam: 3.4 cm IVSd: 0.97 cm Ao Arch Diam (Prox Trans): 3.3 cm LVPWd: 0.87 cm LV solo. diameter/BSA (cm/m^2): 2.1 LV sys. diameter/BSA (cm/m^2): 1.5 LA A2 area: 28.9 cm2 RA long axis: 4.6 cm LA A4 area: 22.1 cm2 RA area: 15.0 cm2 LA length (vol): 5.4 cm RA vol: 41.2 ml LA vol: 100.1 ml RA : 19.4 ml/m2 LA vol index: 47.1 ml/m2 RVD1 (basal): 4.0 cm RVD2 (mid): 4.0 cm TAPSE: 1.8 cm Doppler Measurements & Calculations Ao V2 max: 257.2 cm/sec LVOT Max Gene: 90.0 cm/sec Ao V2 mean: 170.6 cm/sec LV V1 max P.2 mmHg Ao max P.5 mmHg LV V1 VTI: 22.4 cm Ao mean P.3 mmHg PERLA(I,D): 1.8 cm2 Ao V2 VTI: 58.1 cm PERLA(V,D): 1.7 cm2 sev ratio: 0.39 PERLA indexed to BSA (cm^2/m^2): 0.87 MV E max gene: 88.3 cm/sec TR max gene: 237.6 cm/sec MV A max gene: 68.6 cm/sec TR max P.6 mmHg MV E/A: 1.3 PA pr(Accel): 19.8 mmHg Med Peak E' Gene: 8.0 cm/sec E/E' med: 11.0 Lat Peak E' Gene: 8.3 cm/sec E/E' lat: 10.6 E/e' average: 10.8 MV dec time: 0.18 sec SV(LVOT): 107.1 ml Reading Physician:02:12 PM
--- NOTE | 2020-12-14 09:17 | PM.PN.1 ---
Subjective Subjective Date Patient Seen: 12/14/20 Time Patient Seen: 09:18 Interval history: Patient has slowly diminishing urine output through the day yesterday. Was given a unit of packed red cells by surgery in part for that reason as well as for his relatively low hemoglobin hematocrit. Has passed some gas and had NG tube removed by General surgery this morning. Really only has pain or discomfort when he is coughing removing. He has had no stool output including no evidence of blood or bleeding from the rectum. Does not really have much of an appetite as yet. Went into atrial fibrillation this morning with heart rate between 100-120. That resolved upon removal of his NG tube he went back to sinus rhythm heart rate in the 80s. His blood pressure did tolerate the atrial fibrillation. Blood pressure somewhat better overall last blood pressure 114 systolic Exam Vital Signs (past 8 hours): - 12/14/20 01:55 12/14/20 02:00 12/14/20 04:13 Temperature 97.1 F L 97.4 F L Pulse Rate 70 73 78 Respiratory Rate 18 11 L 20 Blood Pressure 113/56 L 125/62 128/61 Pulse Oximetry 91 93 12/14/20 06:00 12/14/20 08:00 Temperature 98.2 F Pulse Rate 97 H 101 H Respiratory Rate 23 26 H Blood Pressure 127/60 114/60 Pulse Oximetry 92 95 Oxygen Delivery Method Nasal Cannula Oxygen Flow Rate 1.5 Narrative Exam Narrative: HEENT-unremarkable Lungs-clear with good breath sounds Heart-regular rate and rhythm grade 2-3 systolic ejection murmur along the left precordial area, do not recall hearing this as an outpatient Abdomen-no bowel tones soft non tender Objective Labs Result Diagrams: 12/14/20 04:50 12/14/20 04:50 Labs: Laboratory Results - last 24 hr 12/13/20 12/14/20 12/14/20 04:23 04:50 04:50 WBC 9.3 RBC 2.86 L Hgb 7.7 L Hct 23.7 L MCV 82.6 MCH 26.9 MCHC 32.6 RDW 14.9 H Plt Count 357 Neut % (Auto) 86.7 H Lymph % (Auto) 4.1 L [place] % (Auto) 9.1 Eos % (Auto) 0.1 L Baso % (Auto) 0.0 Neut # (Auto) 8100 H Lymph # (Auto) 400 L [place] # (Auto) 800 Eos # (Auto) 0 Baso # (Auto) 0 Sodium 138 Potassium 3.8 Chloride 112 H Carbon Dioxide 22 BUN 22 H Creatinine 1.00 Estimated GFR > 60.0 BUN/Creatinine Ratio 22.0 Glucose 166 H Calcium 7.3 L Magnesium Blood Type B Positive Antibody Screen Negative Crossmatch See Detail 12/14/20 04:50 WBC RBC Hgb Hct MCV MCH MCHC RDW Plt Count Neut % (Auto) Lymph % (Auto) [place] % (Auto) Eos % (Auto) Baso % (Auto) Neut # (Auto) Lymph # (Auto) [place] # (Auto) Eos # (Auto) Baso # (Auto) Sodium Potassium Chloride Carbon Dioxide BUN Creatinine Estimated GFR BUN/Creatinine Ratio Glucose Calcium Magnesium 2.4 H Blood Type Antibody Screen Crossmatch [facility] Medical History Acquired hypothyroidism 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 Postop day 2, status post exploratory laparotomy with small-bowel resection. Patient has had evidence of return of bowel function with flatus and has had NG tube removed. He has been cleared for very small amounts of clear liquids by General surgery. Continue to monitor for recovery postop. Diet to be advanced by surgery as appropriate 2. Atrial fibrillation-new problem for patient likely related to fluid shifts although the prompt resolution wound with removal of NG tube would suggest perhaps some irritation related to the NG tube. Patient does have a murmur that I do not recall hearing previously as an outpatient. Overall I think he would benefit from echocardiography even though he has now returned to normal sinus rhythm. I would like to determine what his cardiac status is etcetera 3. Acute blood loss anemia-likely combination of blood loss at time of surgery as well as delusional factors given the large volume of fluids he is required to maintain blood pressure and urine output. I believe he would benefit from additional packed red cells today and will administer those with post transfusion check of hemoglobin hematocrit. 4. Fluid/electrolytes/nutrition-renal function electrolytes remain normal. Continue to monitor for now. Receiving dextrose in his IV fluids but seems like he has had faster than expected return of bowel function and I am not overly concerned he will require TPN or anything like that. 5. Hypothyroidism-given that NG tube is out and he is okay for clear liquids will return to giving him his thyroid with small sips of water. Resume other meds when appropriate although not as urgent as thyroid replacement. Plan to check T4 and TSH tomorrow to ensure this is not playing a role in his atrial fibrillation above
--- NOTE | 2020-12-14 10:10 | PM.PN.1 ---
Subjective Subjective Date Patient Seen: 12/14/20 Time Patient Seen: 10:10 Interval history: Pt went into A fib this AM, but resolved after NGT was removed. Pt reports passing flatus multiple times. Pain reasonable well controlled. Exam Vital Signs (past 8 hours): - 12/14/20 04:13 12/14/20 06:00 12/14/20 08:00 Temperature 97.4 F L 98.2 F Pulse Rate 78 97 H 101 H Respiratory Rate 20 23 26 H Blood Pressure 128/61 127/60 114/60 Pulse Oximetry 93 92 95 Oxygen Delivery Method Nasal Cannula Oxygen Flow Rate 1.5 Narrative Exam Narrative: GENERAL: Alert, comfortable. Appears stated age. Answers questions promptly and appropriately. Vital signs noted. HENT: Normocephalic, atraumatic. Hearing intact. NG tube in place and sumping bilious output. NGT removed during exam EYES: Conjunctiva pink, sclera white, no periorbital swelling. CARDIOVASCULAR:Tachycardic in the 120's and irregular; converted to sinus, rate 87, when the NGT was removed. No pedal edema. RESPIRATORY: Non-tachypneic, breathing comfortably on room air. GASTROINTESTINAL: Abdomen soft and non-distended, incision c/d/i; DANIEL drain murky serosanguinous GENITALURINARY: No flank tenderness. MUSCULOSKELETAL: Equal tone and mass bilaterally. SKIN: Warm, dry, soft, appropriate color for ethnicity. No other lesions, rashes, or wounds. NEURO: Alert and Oriented X 3. No gross sensory deficits, or cognitive issues. PSYCH: Appropriate affect and mood. Objective Labs Result Diagrams: 12/14/20 04:50 12/14/20 04:50 Labs: Laboratory Results - last 24 hr 12/13/20 12/14/20 12/14/20 04:23 04:50 04:50 WBC 9.3 RBC 2.86 L Hgb 7.7 L Hct 23.7 L MCV 82.6 MCH 26.9 MCHC 32.6 RDW 14.9 H Plt Count 357 Neut % (Auto) 86.7 H Lymph % (Auto) 4.1 L [place] % (Auto) 9.1 Eos % (Auto) 0.1 L Baso % (Auto) 0.0 Neut # (Auto) 8100 H Lymph # (Auto) 400 L [place] # (Auto) 800 Eos # (Auto) 0 Baso # (Auto) 0 Sodium 138 Potassium 3.8 Chloride 112 H Carbon Dioxide 22 BUN 22 H Creatinine 1.00 Estimated GFR > 60.0 BUN/Creatinine Ratio 22.0 Glucose 166 H Calcium 7.3 L Magnesium Blood Type B Positive Antibody Screen Negative Crossmatch See Detail 12/14/20 04:50 WBC RBC Hgb Hct MCV MCH MCHC RDW Plt Count Neut % (Auto) Lymph % (Auto) [place] % (Auto) Eos % (Auto) Baso % (Auto) Neut # (Auto) Lymph # (Auto) [place] # (Auto) Eos # (Auto) Baso # (Auto) Sodium Potassium Chloride Carbon Dioxide BUN Creatinine Estimated GFR BUN/Creatinine Ratio Glucose Calcium Magnesium 2.4 H Blood Type Antibody Screen Crossmatch [facility] Medical History Acquired hypothyroidism 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) Gastric ulcer 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) Melanoma Mixed hyperlipidemia (08/14/15) Surgical History H/O melanoma excision (~2018) Family History Father Congestive heart failure Mother Congestive heart failure Brother Brain tumor Sister Cancer Social History household members: spouse Smoking Status: Former smoker alcohol intake: former Assessment & Plan Assessment and plan (1) Acute abdomen: Status: Acute (2) Abnormal CT scan, gastrointestinal tract: Status: Acute (3) Tachycardia: Status: Acute (4) History of peptic ulcer: Status: Acute (5) Lymphoma in remission: Status: Chronic (6) Melanoma: Problem details: Metastatic, [facility] Qualifiers: Melanoma location: unspecified site Qualified Code(s): C43.9 - Malignant melanoma of skin, unspecified Status: Chronic (7) Abdominal pain: Qualifiers: Abdominal location: generalized Qualified Code(s): R10.84 - Generalized abdominal pain Status: Acute (8) Enteritis: Status: Acute Assessment & Plan narrative: This is a 75-year-old man who is now POD#2 s/p laparotomy and small bowel resection for perforated small bowel with tumors present throughout the small bowel. He has passed some flatus and so we removed the NGT today. He required 1 unit of blood yesterday, with some improvement in his hemodynamics, but no improvement in his Hgb level. His anemia is thought to be secondary to intra op loss in the 1 foot of small bowel that was removed. He may have some ongoing losses from bleeding at the anastomosis or from the remaining tumors in the small bowel. However, the patient is not passing any blood per rectum, so this would be less likely. Dr. Hernandez will order another unit of blood to be transfused today and we will closely monitor his hemodynamics, drain output, and stool output. Plan: NGT out Keep DANIEL drain for now advance to clear liquids Continue PPI Lovenox DVT ppx Ok to DC IV fluids from surgical standpoint, management per Dr. Hernandez Will continue abx until left shift has resolved and drain appears clear Ambulate 20 minutes TID We will discuss pathology results when available COVID-19 COVID-19 status: Negative Result date/Date tested (Pos, Neg/Pending): 12/11/20 Time Spent With Patient Time with patient: 25 - 35 minutes Quality VTE Deep Vein Thrombosis/Pulmonary Embolism Present on Admission: No
--- NOTE | 2020-12-14 12:05 | PC.NURSE ---
PT RECEIVING 1 UNIT PRBC THIS AM FOLLOWING ONE OVERNIGHT WELL- WILL REPEAT HH POST TRANSFUSION PER MD ORDER. REMOVED NGT AT BEDSIDE AND PT IS TOLERATING CLEAR LIQUIDS WELL WITHOUT NAUSEA AND DANIEL DRAIN REMAINS PATENT WITH CREAMY APPEARING DRAINAGE- TORADOL FOR PAIN AND ROOM AIR. INITIALLY PT WAS IN AFIB RVR THEN POST REMOVAL OF NGT HE CONVERTED BACK TO SR WITH BBB - ECHO AT PRESENT
[2020-12-14 13:39] LABS: Hemoglobin 9.4 g/dL (13.5-17.5)
[2020-12-14 13:55] LABS: Alanine Aminotransferase 14 IU/L (<50); Albumin 2.3 g/dL (3.5-5.0); Albumin Globulin Ratio 0.9 (1.0-2.8); Alkaline Phosphatase 52 U/L (38-126); Aspartate Aminotransferase 25 IU/L (17-59); BUN Creatinine Ratio 23.4 (6-22); Bilirubin Total 0.6 mg/dL (0.2-1.3); Blood Urea Nitrogen 22 mg/dL (9-20); Calcium 7.6 mg/dL (8.4-10.2); Carbon Dioxide 22 mmol/L (22-32); Chloride 110 mmol/L (98-107); Estimated Glomerular Filt Rate > 60.0 mL/min (>60); Globulin 2.7 g/dL (1.7-4.1); Glucose 140 mg/dL (80-110); HEMOLYSIS 22 (0-50); Potassium 3.6 mmol/L (3.4-5.1); Sodium 138 mmol/L (137-145)
[2020-12-14] MEDS: DEXTROSE 5%-LACTATED RINGERS 1,000 ML 125 ML IV (15:51)
--- NOTE | 2020-12-14 16:45 | PC.NURSE ---
Addendum entered by Eli Jimenez R.N. 12/14/20 23:24: Patient's UO for shift was 600ml. 50ml output in DANIEL. Patient tolerated liquid diet well and was up to chair for meal. IV morphine given as ordered for pain of 4/10 at incision sites. Patient reports no further discomfort at this time. D5LR running at 125ml/hr. Original Note: Patient's ambriz UO 150ml for dayshift, Alona RN left a message with Dr. Uriostegui. Recent BP pressures on soft side, MAP >65. HR in 60's, patient has no complaints. Dr. Uriostegui returned call and deferred to Dr. Hernandez. Dr. Hernandez gave verbal order for 20mg IV lasix once.
[2020-12-14] MEDS: FUROSEMIDE 20 MG/2 ML VIAL IV (17:38)
[2020-12-14] MEDS: MORPHINE 4 MG/ML INJ IV (21:31)
[2020-12-15] VITALS (7 sets, daily range): BP systolic 108–126; BP diastolic 57–68; PULSE 71–97; RESP 17–30; TEMP 36.3–37.8; O2SAT 91–94
[2020-12-15] MEDS: PIPERACILLIN/TAZO 3.375 GM in SODIUM CHLORIDE 0.9% 100 ML 25 ML IV ×3 (00:05→16:07)
[2020-12-15] MEDS: DEXTROSE 5%-LACTATED RINGERS 1,000 ML 125 ML IV ×3 (00:06→19:15)
[2020-12-15 04:54] LABS: Add Manual Diff / Slide Review NO; Basophils Absolute Auto 0 /uL (0-100); Basophils Percent Auto 0.3 % (0-2); Eosinophils Absolute Auto 200 /uL (0-450); Eosinophils Percent Auto 1.8 % (2-4); Hematocrit 26.7 % (41-53); Hemoglobin 8.7 g/dL (13.5-17.5); Lymphocytes Absolute Auto 600 /uL (1100-4500); Lymphocytes Percent Auto 6.2 % (25-40); Mean Corpuscular HGB Conc 32.7 % (30-36); Mean Corpuscular Hemoglobin 26.6 PG (26-34); Mean Corpuscular Volume 81.4 fL (80-100); Monocytes Absolute Auto 1000 /uL (0-900); Neutrophils Absolute Auto 7300 /uL (1500-7000); Neutrophils Percent Auto 80.7 % (50-75); Platelet Count 418 X10^3/uL (150-400); Red Blood Cell Count 3.28 X10^6/uL (4.5-5.9); Red Cell Distribution Width 16.1 % (11.6-14.8)
[2020-12-15 05:01] LABS: BUN Creatinine Ratio 19.4 (6-22); Blood Urea Nitrogen 19 mg/dL (9-20); Calcium 7.3 mg/dL (8.4-10.2); Carbon Dioxide 23 mmol/L (22-32); Chloride 111 mmol/L (98-107); Estimated Glomerular Filt Rate > 60.0 mL/min (>60); Glucose 109 mg/dL (80-110); HEMOLYSIS < 15 (0-50); Potassium 3.7 mmol/L (3.4-5.1); Sodium 138 mmol/L (137-145)
[2020-12-15 05:11] LABS: Magnesium 2.2 mg/dL (1.6-2.3)
[2020-12-15] MEDS: LEVOTHYROXINE 125 MCG TABLET PO (06:14)
[2020-12-15 06:15] LABS: Free T4, Direct Thyroxine 1.16 ng/dL (0.78-2.19)
[2020-12-15] MEDS: PANTOPRAZOLE 40 MG VIAL IV ×2 (08:52→20:10)
[2020-12-15] MEDS: ENOXAPARIN 40 MG/0.4 ML SYRINGE SUBCUT (08:52)
--- NOTE | 2020-12-15 08:57 | P.PN_ITS ---
Subjective Subjective Date Patient Seen: 12/15/20 Time Patient Seen: 08:57 Interval history: No acute events overnight. Pt continues to pass flatus. Tolerates PO intake. No BM as of yet. Ambulated yesterday x 1. Exam Vital Signs (past 8 hours): - 12/15/20 04:13 12/15/20 08:00 Temperature 97.6 F 98.5 F Pulse Rate 81 79 Respiratory Rate 17 24 Blood Pressure 125/63 126/67 Pulse Oximetry 93 93 Oxygen Delivery Method Room Air Oxygen Flow Rate 0 Narrative Exam Narrative: GENERAL: Alert, comfortable. Sitting up to eat. Vital signs noted. CARDIOVASCULAR: Regular rate. No pedal edema. RESPIRATORY: Non-tachypneic, breathing comfortably on room air. GASTROINTESTINAL: Abdomen soft and non-distended, incision c/d/i; DANIEL drain murky serous GENITALURINARY: No flank tenderness. MUSCULOSKELETAL: Equal tone and mass bilaterally. SKIN: Warm, dry, soft, appropriate color for ethnicity. Objective Labs Result Diagrams: 12/15/20 04:45 12/15/20 04:45 Labs: Laboratory Results - last 24 hr 12/13/20 12/14/20 12/14/20 04:23 13:25 13:25 WBC RBC Hgb 9.4 L Hct 29.0 L MCV MCH MCHC RDW Plt Count Neut % (Auto) Lymph % (Auto) [place] % (Auto) Eos % (Auto) Baso % (Auto) Neut # (Auto) Lymph # (Auto) [place] # (Auto) Eos # (Auto) Baso # (Auto) Sodium 138 Potassium 3.6 Chloride 110 H Carbon Dioxide 22 BUN 22 H Creatinine 0.94 Estimated GFR > 60.0 BUN/Creatinine Ratio 23.4 H Glucose 140 H Calcium 7.6 L Magnesium Total Bilirubin 0.6 AST 25 ALT 14 Alkaline Phosphatase 52 Total Protein 5.0 L Albumin 2.3 L Globulin 2.7 Albumin/Globulin Ratio 0.9 L TSH Free T4 Blood Type B Positive Antibody Screen Negative Crossmatch See Detail 12/15/20 12/15/20 12/15/20 04:45 04:45 04:45 WBC 9.0 RBC 3.28 L Hgb 8.7 L Hct 26.7 L MCV 81.4 MCH 26.6 MCHC 32.7 RDW 16.1 H Plt Count 418 H Neut % (Auto) 80.7 H Lymph % (Auto) 6.2 L [place] % (Auto) 11.0 Eos % (Auto) 1.8 L Baso % (Auto) 0.3 Neut # (Auto) 7300 H Lymph # (Auto) 600 L [place] # (Auto) 1000 H Eos # (Auto) 200 Baso # (Auto) 0 Sodium 138 Potassium 3.7 Chloride 111 H Carbon Dioxide 23 BUN 19 Creatinine 0.98 Estimated GFR > 60.0 BUN/Creatinine Ratio 19.4 Glucose 109 Calcium 7.3 L Magnesium Total Bilirubin AST ALT Alkaline Phosphatase Total Protein Albumin Globulin Albumin/Globulin Ratio TSH 5.60 H Free T4 1.16 Blood Type Antibody Screen Crossmatch 12/15/20 04:45 WBC RBC Hgb Hct MCV MCH MCHC RDW Plt Count Neut % (Auto) Lymph % (Auto) [place] % (Auto) Eos % (Auto) Baso % (Auto) Neut # (Auto) Lymph # (Auto) [place] # (Auto) Eos # (Auto) Baso # (Auto) Sodium Potassium Chloride Carbon Dioxide BUN Creatinine Estimated GFR BUN/Creatinine Ratio Glucose Calcium Magnesium 2.2 Total Bilirubin AST ALT Alkaline Phosphatase Total Protein Albumin Globulin Albumin/Globulin Ratio TSH Free T4 Blood Type Antibody Screen Crossmatch [facility] Medical History Acquired hypothyroidism 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) Gastric ulcer 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) Melanoma Mixed hyperlipidemia (08/14/15) Surgical History H/O melanoma excision (~2017) Family History Father Congestive heart failure Mother Congestive heart failure Brother Brain tumor Sister Cancer Social History household members: spouse Smoking Status: Former smoker alcohol intake: former Assessment & Plan Assessment and plan (1) Acute abdomen: Status: Acute (2) Abnormal CT scan, gastrointestinal tract: Status: Acute (3) Tachycardia: Status: Acute (4) History of peptic ulcer: Status: Acute (5) Lymphoma in remission: Status: Chronic (6) Melanoma: Problem details: Metastatic, [place] Qualifiers: Melanoma location: unspecified site Qualified Code(s): C43.9 - Malignant melanoma of skin, unspecified Status: Chronic (7) Abdominal pain: Qualifiers: Abdominal location: generalized Qualified Code(s): R10.84 - Generalized abdominal pain Status: Acute (8) Enteritis: Status: Acute Assessment & Plan narrative: This is a 75-year-old man who is now POD#3 s/p laparotomy and small bowel resection for perforated small bowel with 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 He continues to pass flatus, has not passed a BM. He has been transfused two units of blood over the past two days. Hgb 8.7 today. Left shift has not resolved, but is improving. Pt did have gross spillage due to his perforation, so we will continue IV abx until his drain appears clear and his left shift has resolved. He needs to ambulate, and take PO only as tolerated (should not force it). Plan: Keep DANIEL drain for now Advance to fulls Continue PPI Lovenox DVT ppx Ok to DC IV fluids from surgical standpoint, management per Dr. Hernandez Would favor DC-ing ambriz, may need flomax for BPH history, TBD per Dr. Hernandez Will continue abx until left shift has resolved and drain appears clear Ambulate 20 minutes TID We will discuss pathology results when available Dispo pending pt able to pass stool and urine, WBC resolves off abx, and hgb is stable COVID-19 COVID-19 status: Negative Result date/Date tested (Pos, Neg/Pending): 12/11/20 Time Spent With Patient Time with patient: 15-24 minutes Quality VTE Deep Vein Thrombosis/Pulmonary Embolism Present on Admission: No
[2020-12-15] MEDS: KETOROLAC 30 MG/ML VIAL 15 MG IV (09:00)
--- NOTE | 2020-12-15 09:19 | CM.DPC ---
DCP Cont: Checked in with patient. Introduced self and role. He was sitting up in his chair, alert and oriented, he no longer has NG tube. Patient is independent at his baseline, he resides with his , who he mentioned, is very supportive. Patient just started diet today. P: DCP to continue to follow. Patient should be able to go home when he is medically stable. Jacquie Fowler RN/Chief Clerk Shelter
--- NOTE | 2020-12-15 10:00 | P.PN_ITS ---
Subjective Subjective Date Patient Seen: 12/15/20 Time Patient Seen: 10:00 Interval history: Patient was up walking in the halls when I 1st arrived on the floor. He is feeling generally well. Is consuming small amounts of liquids without any difficulty whatsoever. Is not yet had a bowel movement but feels like things are moving. Pain is controlled except with coughing or more significant motion or movement. No recurrent dysrhythmias Echo was done yesterday and shows basically normal left ventricular and right ventricular function. Mild aortic stenosis is probably the murmur that can be heard. Also has mild mitral regurgitation. Basically an unremarkable echo without implications for this hospitalization Exam Vital Signs (past 8 hours): - 12/15/20 04:13 12/15/20 08:00 Temperature 97.6 F 98.5 F Pulse Rate 81 79 Respiratory Rate 17 24 Blood Pressure 125/63 126/67 Pulse Oximetry 93 93 Oxygen Delivery Method Room Air Oxygen Flow Rate 0 Narrative Exam Narrative: HEENT-unremarkable Lungs-good breath sounds no wheezes no crackles Heart-regular rate and rhythm murmur unchanged Abdomen-rare bowel tones augie-incisional discomfort no rebound or guarding Objective Labs Result Diagrams: 12/15/20 04:45 12/15/20 04:45 Labs: Laboratory Results - last 24 hr 12/13/20 12/14/20 12/14/20 04:23 13:25 13:25 WBC RBC Hgb 9.4 L Hct 29.0 L MCV MCH MCHC RDW Plt Count Neut % (Auto) Lymph % (Auto) [place] % (Auto) Eos % (Auto) Baso % (Auto) Neut # (Auto) Lymph # (Auto) [place] # (Auto) Eos # (Auto) Baso # (Auto) Sodium 138 Potassium 3.6 Chloride 110 H Carbon Dioxide 22 BUN 22 H Creatinine 0.94 Estimated GFR > 60.0 BUN/Creatinine Ratio 23.4 H Glucose 140 H Calcium 7.6 L Magnesium Total Bilirubin 0.6 AST 25 ALT 14 Alkaline Phosphatase 52 Total Protein 5.0 L Albumin 2.3 L Globulin 2.7 Albumin/Globulin Ratio 0.9 L TSH Free T4 Blood Type B Positive Antibody Screen Negative Crossmatch See Detail 12/15/20 12/15/20 12/15/20 04:45 04:45 04:45 WBC 9.0 RBC 3.28 L Hgb 8.7 L Hct 26.7 L MCV 81.4 MCH 26.6 MCHC 32.7 RDW 16.1 H Plt Count 418 H Neut % (Auto) 80.7 H Lymph % (Auto) 6.2 L [place] % (Auto) 11.0 Eos % (Auto) 1.8 L Baso % (Auto) 0.3 Neut # (Auto) 7300 H Lymph # (Auto) 600 L [place] # (Auto) 1000 H Eos # (Auto) 200 Baso # (Auto) 0 Sodium 138 Potassium 3.7 Chloride 111 H Carbon Dioxide 23 BUN 19 Creatinine 0.98 Estimated GFR > 60.0 BUN/Creatinine Ratio 19.4 Glucose 109 Calcium 7.3 L Magnesium Total Bilirubin AST ALT Alkaline Phosphatase Total Protein Albumin Globulin Albumin/Globulin Ratio TSH 5.60 H Free T4 1.16 Blood Type Antibody Screen Crossmatch 12/15/20 04:45 WBC RBC Hgb Hct MCV MCH MCHC RDW Plt Count Neut % (Auto) Lymph % (Auto) [place] % (Auto) Eos % (Auto) Baso % (Auto) Neut # (Auto) Lymph # (Auto) [place] # (Auto) Eos # (Auto) Baso # (Auto) Sodium Potassium Chloride Carbon Dioxide BUN Creatinine Estimated GFR BUN/Creatinine Ratio Glucose Calcium Magnesium 2.2 Total Bilirubin AST ALT Alkaline Phosphatase Total Protein Albumin Globulin Albumin/Globulin Ratio TSH Free T4 Blood Type Antibody Screen Crossmatch FOR[facility], [facility] Medical History Acquired hypothyroidism 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 Postop day 3 status post laparotomy with small-bowel resection-patient is doing okay on clear liquids. Continue management as per General surgery. Probably okay to more vigorously increase fluids orally today. 2. Cardiac-no recurrent atrial fibrillation, most likely related to his NG to and/or fluid shifts. Fluid shifts are theoretically minimized at this point. E chocardiogram essentially reassuring. Does have mild aortic stenosis that will deserve further attention as an outpatient before the moment is not an issue. Normal cardiac function otherwise. 3. Fluids/electrolytes/nutrition-patient with still relatively limited urinary output. I am going to give him an additional dose of IV Lasix and continue with IV fluids at current rate for now while we assess his ability to take in fluids orally. Probably can decrease IV fluids either later today or tomorrow depending on his oral intake. He has been taken off NPO status and will be slowly refitted addressing his nutritional needs. Patient was assessed as having severe acute protein calorie malnutrition based on 3% unintentional weight loss in 3 weeks and 6% over 6 weeks perhaps due to some new neoplastic process. Will continue to monitor carefully, as he recovers from this surgery and or his treated for his ongoing malignancy as we need to ensure we are addressing his severe protein calorie malnutrition as noted. 4. Anemia-patient's blood count is I think overall stable today. Did rebound pretty vigorously with a single unit yesterday I am not sure I trust that immediate post transfusion number. No evidence of active large volume bleeding. I agree with Dr. Uriostegui that the lesions noted on his small intestine may well be the source of bleeding for which he was admitted to the hospital previously rather than the gastric ulcer that was identified. Will need to continue to monitor carefully and or provide nutritional backup including iron etcetera Overall patient is improved and continues to improve frankly faster than expected. Quality VTE Deep Vein Thrombosis/Pulmonary Embolism Present on Admission: No
[2020-12-15] MEDS: OXYCODONE IR 5 MG TABLET PO ×2 (10:15→16:06)
[2020-12-15] MEDS: FUROSEMIDE 20 MG/2 ML VIAL IV (10:15)
[2020-12-15] MEDS: TAMSULOSIN 0.4 MG CAPSULE PO (10:15)
[2020-12-15] MEDS: DOCUSATE 100 MG CAPSULE PO ×2 (13:03→20:11)
--- NOTE | 2020-12-15 13:07 | PC.NURSE ---
pt POD #3 - MIDLINE INCISION WELL APPROXIMATED AND LAP SITES COVERED , ALL DRESSINGS ARE CLEAN DRY AND INTACT- DANIEL WITH LARGE AMOUNT OF DRAINAGE THIS SHIFT >100ML. DRIVER REMOVED AND PT GIVEN IV LASIX WELL PO FLOMAX AND HE HAS BEEN DIURESING WELL- ENCOURAGED PO PAIN RX RATHER THAN IV WHICH HAS BEEN VERY EFFECTIVE FOR HIM- AMBULATED SEVERAL LAPS AROUND NURSING STATION AND DON TO NEW ROOM ( 211) REPORT GIVEN TO HENRI
--- NOTE | 2020-12-15 15:28 | PC.NURSE ---
Assumed care of patient from ICU. Patient A/O x 4. IV fluids infusing in RAC. Patient denies pain at this time. Midline dressing no longer intact, removed, DANIEL compressed and draining, dsg CDI. Bilateral lap sites CDI. Patient voiding, BRP. Ambulating with SBA, FWW. Patient denies further needs at this time. Call light in reach.
--- NOTE | 2020-12-15 17:52 | PC.NURSE ---
Addendum entered by Anna Ling R.N. 12/15/20 19:22: Pt was invited to ambulate in hallway and declines, I'm too tired. Spouse is visiting in room and states pt ambulated from ICU to this room today and is fatigued. T 100 and so I.S. was encouraged and pt demonstrates good technique. Room air saturation levels increase from 90% - 93% with use. Will recheck temp. Original Note: Conversation with in-house pharmacist @ beginning of shift via telephone re zosyn antibiotic and maintenance fluids. Pharmacist marriage counselor minister was to not mix specifically LR with this antibiotic. Pt has two separate iv lines so right hand site was accessed for zosyn administration and right forearm site continues with maintenance fluids. Discussion with pt re changing iv site due to expiration of site right forearm. Pt reports only has access in right arm/cannot utilize left arm so site was left intact to right forearm. Site is without erythema, edema or discomfort. Pt admits to incisional pain 1/10 and was given oxycodone as per request. States pain increases with cough. Suggested splinting abdomen with pillow but pt declines. OOB with minimal assistance into bathroom. Passing flatus and urine. Denies nausea. DANIEL compressed with scant amount serous fluid @ this assessment. Johnnie to midline abdominal incision are intact and open to air. Two large bandaids to abdomen are dry and intact. Abdomen is large. Refuses scd's. Referenced pt's diet order from surgeon which is full liquid. Informed dietary department this is pt's diet and requested tray for pt.
[2020-12-15] MEDS: ATORVASTATIN 20 MG TABLET 10 MG PO (20:10)
[2020-12-16] VITALS: BP 132/72; PULSE 92; RESP 20; TEMP 37.6; O2SAT 94
[2020-12-16] MEDS: PIPERACILLIN/TAZO 3.375 GM in SODIUM CHLORIDE 0.9% 100 ML 25 ML IV ×3 (00:09→15:51)
[2020-12-16] MEDS: DEXTROSE 5%-LACTATED RINGERS 1,000 ML 125 ML IV (03:15)
[2020-12-16 05:30] VITALS: BP 124/64; PULSE 92; RESP 20; TEMP 37.7; O2SAT 92
[2020-12-16 06:01] LABS: Add Manual Diff / Slide Review NO; Basophils Absolute Auto 0 /uL (0-100); Basophils Percent Auto 0.3 % (0-2); Eosinophils Absolute Auto 300 /uL (0-450); Eosinophils Percent Auto 3.1 % (2-4); Hematocrit 28.7 % (41-53); Hemoglobin 9.3 g/dL (13.5-17.5); Lymphocytes Absolute Auto 500 /uL (1100-4500); Lymphocytes Percent Auto 4.7 % (25-40); Mean Corpuscular HGB Conc 32.5 % (30-36); Monocytes Absolute Auto 1300 /uL (0-900); Monocytes Percent Auto 12.4 % (3-14); Neutrophils Absolute Auto 8400 /uL (1500-7000); Neutrophils Percent Auto 79.5 % (50-75); Platelet Count 455 X10^3/uL (150-400); Red Blood Cell Count 3.59 X10^6/uL (4.5-5.9); White Blood Cell Count 10.6 X10^3/uL (4.5-11.0)
[2020-12-16 06:07] LABS: BUN Creatinine Ratio 14.1 (6-22); Blood Urea Nitrogen 12 mg/dL (9-20); Calcium 7.2 mg/dL (8.4-10.2); Carbon Dioxide 25 mmol/L (22-32); Chloride 107 mmol/L (98-107); Estimated Glomerular Filt Rate > 60.0 mL/min (>60); Glucose 121 mg/dL (80-110); HEMOLYSIS < 15 (0-50); Magnesium 1.9 mg/dL (1.6-2.3); Potassium 3.4 mmol/L (3.4-5.1); Sodium 134 mmol/L (137-145)
[2020-12-16] MEDS: LEVOTHYROXINE 125 MCG TABLET PO (06:10)
--- NOTE | 2020-12-16 07:44 | PM.PN.1 ---
Subjective Subjective Date Patient Seen: 12/16/20 Time Patient Seen: 07:45 Interval history: Patient appears to be doing well. Had a good day yesterday. Kind of worn out from being up walking around. Also multiple trips to the bathroom to empty his bladder. No GI symptoms Exam Vital Signs (past 8 hours): - 12/16/20 00:00 12/16/20 05:30 Temperature 99.6 F 99.8 F H Pulse Rate 92 H 92 H Respiratory Rate 20 20 Blood Pressure 132/72 124/64 Pulse Oximetry 94 92 Oxygen Delivery Method Room Air Oxygen Flow Rate 0 Narrative Exam Narrative: HEENT-unremarkable Lungs-good breath sounds no wheezes Heart-regular rate and rhythm with murmur unchanged Abdomen-rare bowel tones soft nontender nondistended some mild augie-incisional discomfort Objective Labs Result Diagrams: 12/16/20 05:35 12/16/20 05:35 Labs: Laboratory Results - last 24 hr 12/16/20 12/16/20 05:35 05:35 WBC 10.6 RBC 3.59 L Hgb 9.3 L Hct 28.7 L MCV 80.0 MCH 26.0 MCHC 32.5 RDW 16.0 H Plt Count 455 H Neut % (Auto) 79.5 H Lymph % (Auto) 4.7 L [place] % (Auto) 12.4 Eos % (Auto) 3.1 Baso % (Auto) 0.3 Neut # (Auto) 8400 H Lymph # (Auto) 500 L [place] # (Auto) 1300 H Eos # (Auto) 300 Baso # (Auto) 0 Sodium 134 L Potassium 3.4 Chloride 107 Carbon Dioxide 25 BUN 12 Creatinine 0.85 Estimated GFR > 60.0 BUN/Creatinine Ratio 14.1 Glucose 121 H Calcium 7.2 L Magnesium 1.9 PFSH Medical History Acquired hypothyroidism 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 Status postop day 4 status post laparotomy small-bowel resection-doing well. On full liquid diet as per General surgery. Will advance as per General surgery. 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 Again continue antibiotics as per General surgery. 2. Intra-abdominal malignancy-awaiting pathology which might well be available today. 3. Atrial fibrillation-no evidence of recurrence. I have taken patient off telemetry. Echo was reassuring. Thyroid studies normal. I do continue to believe his atrial fibrillation is more related to fluid shifts and or NG to within the esophagus. 4. Anemia-patient's counts today are stable. Will defer further testing of CBC and BMP to surgery 5. Fluids/electrolytes/nutrition-patient's diet is been advanced. We can DC the IV fluids. I think he needs some low-dose oral potassium as his potassium is on the lower side. This will likely be a 1-2 times dose. Quality VTE Deep Vein Thrombosis/Pulmonary Embolism Present on Admission: No
[2020-12-16 08:00] VITALS: BP 121/67; PULSE 95; RESP 18; TEMP 37.6; O2SAT 93
[2020-12-16] MEDS: PANTOPRAZOLE 40 MG VIAL IV ×2 (08:59→20:30)
[2020-12-16] MEDS: POTASSIUM CHLORIDE 10 MEQ TAB PO ×2 (09:06→16:59)
[2020-12-16] MEDS: ENOXAPARIN 40 MG/0.4 ML SYRINGE SUBCUT (09:06)
[2020-12-16] MEDS: DOCUSATE 100 MG CAPSULE PO ×2 (09:06→20:30)
[2020-12-16] MEDS: TAMSULOSIN 0.4 MG CAPSULE PO (09:06)
[2020-12-16] MEDS: MAGNESIUM OXIDE 400 MG TABLET PO (09:06)
[2020-12-16] MEDS: OXYCODONE IR 5 MG TABLET PO ×2 (10:43→16:59)
--- NOTE | 2020-12-16 11:58 | P.PN_ITS ---
Subjective Subjective Date Patient Seen: 12/16/20 Time Patient Seen: 10:08 Interval history: No acute events overnight. Pt tolerating full liquid diet. Passing gas, no stool yet. Exam Vital Signs (past 8 hours): - 12/16/20 05:30 12/16/20 08:00 Temperature 99.8 F H 99.6 F Pulse Rate 92 H 95 H Respiratory Rate 20 18 Blood Pressure 124/64 121/67 Pulse Oximetry 92 93 Oxygen Delivery Method Room Air Oxygen Flow Rate 0 Narrative Exam Narrative: GENERAL: Alert, comfortable. Vital signs noted. CARDIOVASCULAR: Regular rate. No pedal edema. RESPIRATORY: Non-tachypneic, breathing comfortably on room air. GASTROINTESTINAL: Abdomen soft and non-distended, incision c/d/i; DANIEL drain s erous GENITALURINARY: No flank tenderness. MUSCULOSKELETAL: Equal tone and mass bilaterally. SKIN: Warm, dry, soft, appropriate color for ethnicity. Objective Labs Result Diagrams: 12/16/20 05:35 12/16/20 05:35 Labs: Laboratory Results - last 24 hr 12/16/20 12/16/20 05:35 05:35 WBC 10.6 RBC 3.59 L Hgb 9.3 L Hct 28.7 L MCV 80.0 MCH 26.0 MCHC 32.5 RDW 16.0 H Plt Count 455 H Neut % (Auto) 79.5 H Lymph % (Auto) 4.7 L [place] % (Auto) 12.4 Eos % (Auto) 3.1 Baso % (Auto) 0.3 Neut # (Auto) 8400 H Lymph # (Auto) 500 L [place] # (Auto) 1300 H Eos # (Auto) 300 Baso # (Auto) 0 Sodium 134 L Potassium 3.4 Chloride 107 Carbon Dioxide 25 BUN 12 Creatinine 0.85 Estimated GFR > 60.0 BUN/Creatinine Ratio 14.1 Glucose 121 H Calcium 7.2 L Magnesium 1.9 PFSH Medical History Acquired hypothyroidism 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) Gastric ulcer 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) Melanoma Mixed hyperlipidemia (08/14/15) Surgical History H/O melanoma excision (~2017) Family History Father Congestive heart failure Mother Congestive heart failure Brother Brain tumor Sister Cancer Social History household members: spouse Smoking Status: Former smoker alcohol intake: former Assessment & Plan Assessment and plan (1) Acute abdomen: Status: Acute (2) Abnormal CT scan, gastrointestinal tract: Status: Acute (3) Tachycardia: Status: Acute (4) History of peptic ulcer: Status: Acute (5) Lymphoma in remission: Status: Chronic (6) Melanoma: Problem details: Metastatic, [place] [facility] Qualifiers: Melanoma location: unspecified site Qualified Code(s): C43.9 - Malignant melanoma of skin, unspecified Status: Chronic (7) Abdominal pain: Qualifiers: Abdominal location: generalized Qualified Code(s): R10.84 - Generalized abdominal pain Status: Acute (8) Enteritis: Status: Acute Assessment & Plan narrative: This is a 75-year-old man who is now POD#4 s/p laparotomy and small bowel resection for perforated small bowel with 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 He continues to pass flatus, has not passed a BM. His hgb is stable. His left shift is still resolving. His drain appears more clear today. He is voiding without the ambriz. Plan: Keep DANIEL drain for now Full liquid diet Continue PPI Lovenox DVT ppx Will continue abx until left shift has resolved and drain appears clear Ambulate 20 minutes TID We will discuss pathology results when available Dispo pending pt able to pass stool and urine, WBC resolves off abx, and hgb is stable COVID-19 COVID-19 status: Negative Result date/Date tested (Pos, Neg/Pending): 12/11/20 Time Spent With Patient Time with patient: 15-24 minutes Quality VTE Deep Vein Thrombosis/Pulmonary Embolism Present on Admission: No
[2020-12-16 12:15] VITALS: BP 120/70; PULSE 92; RESP 18; TEMP 37.5; O2SAT 92
[2020-12-16 15:20] VITALS: BP 116/69; PULSE 90; RESP 18; TEMP 37.1; O2SAT 92
[2020-12-16 19:51] VITALS: BP 116/69; PULSE 94; RESP 17; TEMP 37.2
[2020-12-16] MEDS: ATORVASTATIN 20 MG TABLET 10 MG PO (20:30)
[2020-12-17] VITALS: BP 118/63; PULSE 104; RESP 20; TEMP 37.1; O2SAT 93
[2020-12-17] MEDS: PIPERACILLIN/TAZO 3.375 GM in SODIUM CHLORIDE 0.9% 100 ML 25 ML IV (00:05)
[2020-12-17 04:00] VITALS: BP 126/65; PULSE 90; RESP 20; TEMP 37.1; O2SAT 93
[2020-12-17] MEDS: LEVOTHYROXINE 125 MCG TABLET PO (06:02)
[2020-12-17 08:00] VITALS: BP 136/73; PULSE 94; RESP 16; TEMP 36.4; O2SAT 93
--- NOTE | 2020-12-17 08:28 | PM.PN.1 ---
Subjective Subjective Date Patient Seen: 12/17/20 Time Patient Seen: 08:28 Interval history: Patient with reasonably good day yesterday. Still tolerating a full liquid diet without any particular difficulty. Drainage through his DANIEL drain in his abdomen remains clear. 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 Postop day 5 status post laparotomy with small-bowel resection-continues to do well. Continue management as per Dr. Uriostegui. Can likely advance diet removed drain and or even consider discharge home. Duration of antibiotics will be entirely as per surgery. 2. Intra-abdominal malignancy-pathology still pending at this point. Expected to return probably sometime today or tomorrow at the latest. 3. BPH with LUTS-patient should continue on Flomax if he is indeed discharged later today. 4. Patient's other chronic medical conditions seems stable. Should continue of course on his thyroid replacement, his omeprazole for his gastric ulcer I would continue him on iron as well given his persistent anemia which may indeed be related to his intra-abdominal malignancy more than the gastric ulcer seen previously. He should also continue on his lipid lowering therapy etcetera. I have updated his discharge plan with correct medication list for his chronic medical conditions including the Flomax as above. Assuming patient is discharged later today I would like to see him in the office in a week-10 days and will communicate with his oncologist in [place] results of his pathology when available. Quality VTE Deep Vein Thrombosis/Pulmonary Embolism Present on Admission: No
[2020-12-17] MEDS: ENOXAPARIN 40 MG/0.4 ML SYRINGE SUBCUT (08:52)
[2020-12-17] MEDS: DOCUSATE 100 MG CAPSULE PO (08:53)
[2020-12-17] MEDS: TAMSULOSIN 0.4 MG CAPSULE PO (08:53)
[2020-12-17] MEDS: MAGNESIUM OXIDE 400 MG TABLET PO (08:53)
[2020-12-17] MEDS: POTASSIUM CHLORIDE 10 MEQ TAB PO (08:53)
[2020-12-17] MEDS: PANTOPRAZOLE 40 MG VIAL IV (08:53)
--- NOTE | 2020-12-17 10:37 | P.DS_ITS ---
History of Present Illness History of Present Illness Date Patient Seen: 12/12/20 Chief complaint: states severe abd pain Narrative: 75-year-old male recently admitted to the hospital with evidence of upper GI bleed was scheduled to have repeat routine upper endoscopy on December 12 presented with rather acute onset of severe mid epigastric abdominal pain. Came to the ER and was found to have an elevated white blood cell count and on CT imaging evidence of an enteritis. He was modestly tachycardic and borderline hypotensive (although he is generally somewhat hypotensive with systolic blood pressure in the 110-125 range). Surgery was consulted and he was started on IV antibiotics With time he did not really improve was seen in person by General surgery who felt like he required an urgent evaluation for possible ischemic bowel etcetera. 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 Small bowel resection was performed with reanastomosis. Per surgery, appearance of lesions were not clear or classic lymphoma or even melanoma. Therefore etiology is at this time until pathology is available uncertain Discharge Providers Provider Date of admission: 12/11/20 20:00 Discharge Date: 12/17/20 Primary care physician: Jennifer Hernandez MD Consults: 12/12/20 11:14 Consult to Respiratory Therapy Evaluate & Treat Comment: Physician Instructions: Evaluate and treat 12/12/20 11:58 Consult to Dietitian, Adult Routine Comment: Reason For Exam: weight loss >6 lbs 12/12/20 12:04 Consult to Discharge Planning Routine Comment: Discharge provider: Roxanna Uriostegui MD Exam Vital Signs (past 8 hours): - 12/17/20 04:00 12/17/20 08:00 Temperature 98.8 F 97.6 F Pulse Rate 90 94 H Respiratory Rate 20 16 Blood Pressure 126/65 136/73 Pulse Oximetry 93 93 Oxygen Delivery Method Room Air Oxygen Flow Rate 0 Narrative Exam Narrative: GENERAL: Alert, comfortable. Vital signs noted. CARDIOVASCULAR: Regular rate. No pedal edema. RESPIRATORY: Non-tachypneic, breathing comfortably on room air. GASTROINTESTINAL: Abdomen soft and non-distended, incision c/d/i; DANIEL drain serous and clear looking; removed during exam GENITALURINARY: No flank tenderness. MUSCULOSKELETAL: Equal tone and mass bilaterally. SKIN: Warm, dry, soft, appropriate color for ethnicity. Objective Imaging CT scan - abdomen: Radiologist's impression: [address] [id number] Scan ReportSigned Patient: Jessa Eid JMR#: [id number]: 7Acct:[id number]/Sex: 75 / MDate of Service: 12/11/20Loc: [id number] Number: [id number] Procedure: CT abdomen pelvis w con Ordering Provider: Candido Atkins D.O. PROCEDURE: CT ABDOMEN PELVIS W CON INDICATIONS: Generalized abdominal pain with distention TECHNIQUE: After the administration of intravenous contrast, 5 mm thick sections acquired from the diaphragm to the symphysis. 5 mm coronal and sagittal reformats were acquired. For radiation dose reduction, the following was used: automated exposure control, adjustment of mA and/or kV according to patient size. COMPARISON: [facility], CT, CT ABDOMEN PELVIS W CON, 10/12/2020, 16:08. FINDINGS: Image quality: Excellent. ABDOMEN: Lung bases: Bibasilar atelectasis. Heart size is normal. Moderate scattered atherosclerotic calcifications of the coronary arteries are noted. Solid organs: Liver is normal in size and enhancement. Gallbladder is unremarkable. Biliary system is non dilated. Pancreas enhances normally. Spleen is normal in size and enhancement. Stable appearance of left adrenal hypodense nodule measuring approximately 1.2 cm in diameter and 30 Hounsfield units in attenuation. Kidneys demonstrate normal size and enhancement, without hydronephrosis. Tiny punctate nonobstructing left nephrolith. Bilateral ureters are normal in course and caliber. No evidence for ureteral stones. Peritoneum and bowel: No evidence for bowel obstruction. There is a long segment of circumferential wall thickening of small bowel, likely involving the ileum with surrounding inflammatory changes and reactive mesenteric lymph nodes. Small amount of surrounding reactive free fluid. Findings are most pronounced in the mid, midline abdomen. No free air. Nodes and vessels: No retroperitoneal or mesenteric adenopathy by size criteria. Aorta and inferior vena cava are normal in size. Scattered atherosclerotic calcifications of the abdominal aorta and iliac vessels without aneurysmal dilatation. Origins of the mesenteric vessels appear patent. Miscellaneous: Small fat containing periumbilical hernia without acute inflammation. Small fat containing right inguinal hernia without acute inflammation. PELVIS: Genitourinary: Urinary bladder wall thickness appears normal for degree of distension. Prominent prostate gland. Miscellaneous: No pelvic adenopathy. Bones: No suspicious bony lesions. No acute vertebral body compression fractures. Multilevel spondylosis of the imaged spine. IMPRESSION: 1. Long segment of circumferential small bowel wall thickening of the midline, mid abdomen likely involving the ileum. Findings are most consistent with an infectious/inflammatory process. Ischemia felt less likely. No evidence for obstruction. 2. Redemonstration of left adrenal nodule, likely representing an adenoma. 3. Stable appearance of nonobstructing punctate left renal calculus. No hydronephrosis. 4. Atherosclerosis. Other chronic findings as above. Dictated by: Kendall Christensen M.D. on 12/11/2020 at 17:55 Approved by: Kendall Christensen M.D. on 12/11/2020 at 18:05 Echo: Radiologist's impression: [address] [id number] ReportSigned Patient: Jessa Eid JMR#: [id number]: [id number]:[id number]/Sex: 75 / MDate of Service: 12/14/20Loc: [id number] Number: [id number] Procedure: EC echo doppler complete Ordering Provider: Jennifer Hernandez MD [place] +---------+ [facility] +---------+ : : [address] : : : : [place], [place] : : : : [id number] : : : : Phone: [phone]---------+ Echocardiogram Report + + :Name: JESSA EID Study Date: 12/14/2020 Height: 72 in : :[facility] ReadingLocation: Weight: 199 lb : : Gender: Male BSA: 2.1 m2 : :: 1945 Age: 75 yrs BP: 113/56 mmHg: :Reason For Study: MURMUR, AFIB : :Ordering Physician: JULIO, : :JENNIFER Alexandre Performed By: Nancy Gil : :Referring: JENNIFER HERNANDEZ : + + Interpretation Summary The left ventricle is normal in size and wall thickness. Left ventricular systolic function is low normal. The ejection fraction is estimated to be 50- 55%. There are no obvious focal wall motion abnormalities noted but poor endocardial definition reduces the sensitivity for the detection of such. Diastolic parameters suggest probable normal left ventricular diastolic function and normal filling pressures. The right ventricle is at the upper limits of normal in size. The right ventricular systolic function is normal. The right ventricular systolic pressure is estimated to be at least 26 mmHg based on an estimated right atrial pressure of 3 mm Hg. The left atrium is moderately dilated. Right atrial size is normal. There is mild mitral regurgitation. There is mild aortic stenosis. The peak aortic velocity is 2.6 m/sec. The calculated aortic valve area is 1.7 cm2. There is mild aortic regurgitation. The aortic root is normal size. Procedure: A two-dimensional transthoracic echocardiogram with color flow and Doppler was performed. The study quality was technically adequate. There is no prior echocardiogram noted for this patient. The patient was in sinus rhythm with heart rates between 64-77 bpm during the exam. Left Ventricle: The left ventricle is normal in size and wall thickness. Left ventricular systolic function is low normal. The ejection fraction is estimated to be 50-55%. There are no obvious focal wall motion abnormalities noted but poor endocardial definition reduces the sensitivity for the detection of such. Diastolic parameters suggest probable normal left ventricular diastolic function and normal filling pressures. Right Ventricle: The right ventricle is at the upper limits of normal in size. The right ventricular systolic function is normal. Atria: The left atrium is moderately dilated. Right atrial size is normal. There is no Doppler evidence for an interatrial shunt. Mitral Valve: There is mild mitral annular calcification. The mitral valve leaflets appear mildly thickened, but open well. There is mild mitral regurgitation. Aortic Valve: The aortic valve is not well visualized. The aortic valve is moderately calcified. There is mild aortic stenosis. The peak aortic velocity is 2.6 m/sec. The aortic valve mean gradient is 15 mmHg. The calculated aortic valve area is 1.7 cm2. There is mild aortic regurgitation. Tricuspid Valve: The tricuspid valve is normal in structure and function. There is mild tricuspid regurgitation. The right ventricular systolic pressure is estimated to be at least 26 mmHg based on an estimated right atrial pressure of 3 mm Hg. Pulmonic Valve: The pulmonic valve is not well visualized. There is no pulmonic valvular regurgitation. Great Vessels: The aortic root is normal size. The ascending aorta is at the upper limits of normal in size. The inferior vena cava was not visualized. Pericardium/ Pleura There is no pericardial effusion. There is no pleural effusion. MMode/2D Measurements & Calculations LVIDd: 4.4 cm LVOT diam: 2.5 cm LVIDs: 3.2 cm Ao root diam: 3.4 cm FS: 27.4 % asc Aorta Diam: 3.4 cm IVSd: 0.97 cm Ao Arch Diam (Prox Trans): 3.3 cm LVPWd: 0.87 cm LV solo. diameter/BSA (cm/m^2): 2.1 LV sys. diameter/BSA (cm/m^2): 1.5 LA A2 area: 28.9 cm2 RA long axis: 4.6 cm LA A4 area: 22.1 cm2 RA area: 15.0 cm2 LA length (vol): 5.4 cm RA vol: 41.2 ml LA vol: 100.1 ml RA : 19.4 ml/m2 LA vol index: 47.1 ml/m2 RVD1 (basal): 4.0 cm RVD2 (mid): 4.0 cm TAPSE: 1.8 cm Doppler Measurements & Calculations Ao V2 max: 257.2 cm/sec LVOT Max Gene: 90.0 cm/sec Ao V2 mean: 170.6 cm/sec LV V1 max P.2 mmHg Ao max P.5 mmHg LV V1 VTI: 22.4 cm Ao mean P.3 mmHg PERLA(I,D): 1.8 cm2 Ao V2 VTI: 58.1 cm PERLA(V,D): 1.7 cm2 sev ratio: 0.39 PERLA indexed to BSA (cm^2/m^2): 0.87 MV E max gene: 88.3 cm/sec TR max gene: 237.6 cm/sec MV A max gene: 68.6 cm/sec TR max P.6 mmHg MV E/A: 1.3 PA pr(Accel): 19.8 mmHg Med Peak E' Gene: 8.0 cm/sec E/E' med: 11.0 Lat Peak E' Gene: 8.3 cm/sec E/E' lat: 10.6 E/e' average: 10.8 MV dec time: 0.18 sec SV(LVOT): 107.1 ml Reading Physician:02:12 PM Labs Result Diagrams: 12/16/20 05:35 12/16/20 05:35 [facility] Medical History Acquired hypothyroidism 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 Pathology pending. Plan of Treatment: Discharge home with plans for surgeon follow up in two days for wound check and again in nine days for staple removal. No antibiotics or narcotics at home. Full liquid diet, advancing as tolerated to low residual. Stool softener as needed, Metamucil for fiber. Discharge Plan Discharge Plan Patient Disposition: Home Provider Discharge Comment: Hydration: Drink plenty of water to keep yourself hydrated. If you feel dry mouth or notice your urine becomes darker, increase your fluid intake. Pain control: You may take Tylenol as needed for pain. Take no more than 3000mg in 24 hours. Taking 1000mg every 8 hours may help to keep pain under control. You may use your abdominal binder for support when up and around. The counter pressure on your abdominal wall will help reduce pain from the incision. You may use an ice pack on the abdominal wall for discomfort. Protect your skin with a towel or T shirt. If your pain is not controlled with Tylenol, abdominal binder, ice pack, and rest, then please call the [facility] number to speak with Dr. Uriostegui or the surgeon qa automation developer. Diet: You may advance yourself from full liquid diet to low residue/low fiber diet at home as you feel comfortable. You will be on a low residue diet, which is a low fiber diet, for a few weeks or longer. You may use Metamucil for fiber as it is easy to digest and will not get hung up in the narrowed areas of your small intestine. Make sure to drink plenty of water. Bowel movements: Use a stool softener to help with bowel movements. We will send a prescription for Docusate to your pharmacy. It can also be purchased over the counter. You may use a different stool softener or laxative if you prefer. If you are having loose stools or diarrhea, you may stop using the stool softener or laxative. You may also use a fiber supplement such as Metamucil, Benefiber, or psyllium husk. Use 2 tspn in 8 oz water once daily to start. You may increase or decrease the amount and frequency as needed. The goal is to have a soft, formed, stool without straining, and without having to sit on the toilet for more than 2 minutes to have a bowel movement. Activity, Showering, Wound care: Keep active with light activity such as gentle exercise and taking walks. Avoid lifting over 10lbs, abdominal core work, or any strenuous activity. Avoid being sedentary for prolonged periods. You may shower. You may let soapy water rinse over the incisions, but do not scrub them. After showering, pat dry the incisions and keep a dry dressing over your incisional wounds as needed. Keep your drain site covered with a plastic dressing when showering for the first two days at home. After 48 hours, the steri strips can get wet just like the other incision sites. Do not use any other cleansers, ointments, lotions, or powders on the incisions. Concerns and Emergencies: If you notice any redness or drainage from the wounds, call our office and speak to Dr. Uriostegui, or the doctor qa automation developer. If you have any other concerns about your surgery or post operative care, please call the surgeon's office number and speak to the office nurse or the surgeon qa automation developer. If you call after hours or on the weekend, remain on the line until you reach the answering service and ask them to page the surgeon qa automation developer to call you back. If you become severely ill with significant chest pain, shortness of breath, significant bleeding, or other life threatening symptoms, please call 911 or go to the ER right away. Discharge orders & Medications Prescriptions: New tamsulosin [Flomax] 0.4 mg Capsule 0.4 mg PO DAILY Qty: 90 RF: 3 docusate sodium 100 mg capsule 100 mg PO BID Qty: 60 RF: 0 Continued atorvastatin [Lipitor] 10 mg tablet 10 mg PO HS Qty: 90 RF: 3 omeprazole 40 mg capsule,delayed release(DR/EC) 40 mg PO DAILY Qty: 60 RF: 3 fluoride (sodium) 1.1 % gel 1 applic PO BEDTIME RF: 0 levothyroxine 125 mcg tablet 125 mcg PO DAILY RF: 0 cevimeline 30 mg capsule 1 cap PO TID Qty: 270 RF: 3 ferrous sulfate 325 mg (65 mg iron) tablet 325 mg PO BID Qty: 60 RF: 3 Follow up/Referrals: Jennifer Hernandez MD [Primary Care Provider] - 1 Week Roxanna Uriostegui MD [Physician] - (Make a follow up appointment to see Dr. Uriostegui on 12/19 for close follow up, and or around 12/26 to remove your clint) Discharge Health Status Multidrug resistant organism: No MDRO Diet/Activity/Treatments Diet: Diet as Tolerated and Full Liquid Diet comment: Advance as tolerated to low residual Skin/Wound/Dressing Care Report to your healthcare provider any signs of infection, such as:: chills, fever, night sweats, increased pain, unusual drainage and unusual redness Visit Report/Discharge Packet Instructions: Low-Fiber/Low-Residue Diet, [facility]: Wound Care Stand Alone Forms: Surgery Discharge Discharge Data Primary Care Provider: Jennifer Hernandez Quality VTE Deep Vein Thrombosis/Pulmonary Embolism Present on Admission: No
== END 2020-12-17 13:00 | disposition home or self-care (01) | DRG 329 ==
LOC: ED 19:52 → AC 12-12 06:45 → ICU 12-13 12:12 → AC 12-16 09:22 → ICU 12-17 07:43
PROVIDERS: Specialist; Surgery; Admitting Provider Family Medicine; Emergency Provider Emergency Medicine; Family Provider Family Medicine; PCP Internal Medicine; Referring Provider Emergency Medicine; Visit Provider Internal Medicine
PROC: (CPT 49320; principal; 2020-12-12 07:45)
DX: C78.4 Secondary malignant neoplasm of small intestine (principal); K63.1 Perforation of intestine (nontraumatic); E43 Unspecified severe protein-calorie malnutrition; D62 Acute posthemorrhagic anemia; Z85.72 Personal history of non-Hodgkin lymphomas; C43.9 Malignant melanoma of skin, unspecified; Z87.891 Personal history of nicotine dependence; Z20.822 Contact with and (suspected) exposure to COVID-19; E03.9 Hypothyroidism, unspecified; E78.2 Mixed hyperlipidemia; E86.9 Volume depletion, unspecified; I48.91 Unspecified atrial fibrillation; Z68.27 Body mass index [BMI] 27.0-27.9, adult
CPT/HCPCS: 36415; 36430; 36592; 71045; 74177; 80048; 80053; 81003; 82962; 83605; 83690; 83735; 84439; 84443; 85014; 85018; 85025; 86850; 86900; 86901; 87040; 87635; 87797; 93005; 93010; 93306; 94762; 96361; 96365; 96366; 96375; 96376; 99223; 99232; 99233; 99285; C9803; P9016; C9113; C9290; J0330; J1100; J1170; J1650; J1885; J1940; J2270; J2405; J2543; J2704; J3010; J3475; J7121; Q9967

== ENCOUNTER → 2020-12-26 13:59 | Outpatient (CLI) | payer OTHER, MEDICARE, SELFPAY ==
[2020-12-17 10:25] VITALS: BMI 27.1
[2020-12-26 14:56] LABS: Hematocrit 32.4 % (41-53); Hemoglobin 10.3 g/dL (13.5-17.5); Mean Corpuscular HGB Conc 31.7 % (30-36); Mean Corpuscular Hemoglobin 25.1 PG (26-34); Mean Corpuscular Volume 79.1 fL (80-100); Platelet Count 701 X10^3/uL (150-400); White Blood Cell Count 6.9 X10^3/uL (4.5-11.0)
[2020-12-26 15:25] LABS: Alanine Aminotransferase 13 IU/L (<50); Albumin 3.1 g/dL (3.5-5.0); Alkaline Phosphatase 103 U/L (38-126); Aspartate Aminotransferase 18 IU/L (17-59); BUN Creatinine Ratio 22.8 (6-22); Bilirubin Total 0.1 mg/dL (0.2-1.3); Blood Urea Nitrogen 21 mg/dL (9-20); Calcium 9.3 mg/dL (8.4-10.2); Carbon Dioxide 24 mmol/L (22-32); Chloride 104 mmol/L (98-107); Estimated Glomerular Filt Rate > 60.0 mL/min (>60); Globulin 3.1 g/dL (1.7-4.1); Glucose 119 mg/dL (80-110); HEMOLYSIS < 15 (0-50); Potassium 4.8 mmol/L (3.4-5.1); Sodium 136 mmol/L (137-145); Total Protein 6.2 g/dL (6.3-8.2)
== END ==
PROVIDERS: Family Provider Family Medicine; PCP Internal Medicine; Referring Provider Internal Medicine; Visit Provider Internal Medicine
DX: D64.9 Anemia, unspecified (principal); E78.2 Mixed hyperlipidemia
CPT/HCPCS: 36415; 80053; 85027

== ENCOUNTER → 2021-01-14 10:24 | Outpatient (CLI) | payer OTHER, MEDICARE, SELFPAY ==
[2020-12-17 10:25] VITALS: BMI 27.1
--- NOTE | 2021-01-14 10:27 | DI.US.S_ITS ---
PROCEDURE: US SOFT TISSUE HEAD AND NECK INDICATIONS: left neck subcutaneous mass TECHNIQUE: Real-time scanning was performed of the neck region of interest, with image documentation. COMPARISON: None. FINDINGS: Well-circumscribed hyperechoic lesion in the subcutaneous tissues in abutting the dura mass at the palpable area of interest in the left neck, which measures 2.9 x 0.7 x 1.3 cm and demonstrates internal vascularity. IMPRESSION: Solid 2.9 cm subcutaneous mass abutting the dermis corresponds to the palpable abnormality in the left neck. Differential considerations include benign and malignant soft tissue masses and skin lesions. Recommend clinical correlation and possible Dermatology consultation and/or tissue biopsy. Dictated by: Walker Barksdale M.D. on 01/14/2021 at 13:18 Approved by: Walker Barksdale M.D. on 01/14/2021 at 13:21
== END ==
PROVIDERS: Family Provider Family Medicine; PCP Internal Medicine; Referring Provider Surgery; Visit Provider Surgery
DX: C43.9 Malignant melanoma of skin, unspecified (principal); R22.1 Localized swelling, mass and lump, neck
CPT/HCPCS: 76536

== ENCOUNTER 2021-03-03 10:32 | Emergency (ER) | payer OTHER, MEDICARE, SELFPAY ==
[2020-12-17 10:25] VITALS: BMI 27.1
[2021-03-03] VITALS (7 sets, daily range): BP systolic 92–104; BP diastolic 50–56; PULSE 93–102; RESP 14–22; TEMP 36.6; O2SAT 93–98; BMI 24.4
--- NOTE | 2021-03-03 10:57 | ED.GENADULT ---
HPI - General Adult General Chief complaint: Weakness Stated complaint: Needs fluids- dehydrated-post radiation Time Seen by Provider: 03/03/21 10:57 History of Present Illness HPI narrative: Patient is a 75-year-old male. Approximately 2 weeks ago finished a 10 day course of brain radiation for melanoma. States since that time he has felt very fatigued. Has had decreased oral intake. Denies any chest pain. No abdominal pain. No nausea vomiting. No urinary symptoms. No rashes. No fevers. He states that in the past fluids have helped his fatigue. Related Data Home Medications Medication Instructions Recorded Confirmed fluoride (sodium) 1.1 % dental gel 1 applic PO BEDTIME g 10/11/20 01/20/21 levothyroxine 125 mcg tablet 125 mcg PO DAILY 10/11/20 01/20/21 Previous Rx's Medication Instructions Recorded atorvastatin 10 mg tablet (Lipitor) 10 mg PO HS #90 tab 10/28/20 omeprazole 40 mg capsule,delayed 40 mg PO DAILY #60 cap 11/22/20 release cevimeline 30 mg capsule 1 cap PO TID #270 cap 11/29/20 docusate sodium 100 mg capsule 100 mg PO BID #60 cap 12/17/20 tamsulosin 0.4 mg capsule (Flomax) 0.4 mg PO DAILY #90 cap 12/17/20 Allergies Allergy/AdvReac Type Severity Reaction Status Date / Time No Known Drug Allergies Allergy Verified 01/20/21 16:21 Review of Systems Constitutional Constitutional: Reports as per HPI Eyes Eyes: Reports system reviewed and no additional complaints, except as documented Cardiovascular Cardiovascular: Reports system reviewed and no additional complaints, except as documented Respiratory Respiratory: Reports system reviewed and no additional complaints, except as documented Gastrointestinal Gastrointestinal: Reports system reviewed and no additional complaints, except as documented Genitourinary Genitourinary: Reports system reviewed and no additional complaints, except as documented Musculoskeletal Musculoskeletal: Reports system reviewed and no additional complaints, except as documented Integumentary/Breasts Skin/Breast: Reports system reviewed and no additional complaints, except as documented Neurologic Neurologic: Reports system reviewed and no additional complaints, except as documented Hematologic/Lymphatic On Anticoagulants: No Allergic/Immunologic Allergic/Immunologic: Reports system reviewed and no additional complaints, except as documented 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) Gastric ulcer 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) Melanoma Mixed hyperlipidemia (08/14/15) Surgical History H/O melanoma excision (~2018) S/P laparotomy Family History Father Congestive heart failure Mother Congestive heart failure Brother Brain tumor Sister Cancer Social History household members: spouse Smoking Status: Former smoker alcohol intake: former Smoking Status: Former smoker alcohol intake frequency: holidays/special occasions only Substance Use Type: does not use Exam Initial Vital Signs Initial Vital Signs: Vital Signs Pulse Rate 101 H 03/03/21 11:00 Respiratory Rate 19 03/03/21 11:00 Pulse Oximetry 93 03/03/21 11:00 Const General: comfortable HENMT Head: normal to inspection Resp Auscultation: clear to auscultation bilaterally Percussion: percussion normal Cardio Rate: tachycardic Rhythm: regular rhythm GI Inspection: normal to inspection Skin General: no rashes or lesions noted Neuro General: patient alert, patient awake and patient oriented x3 Extrem General: normal to inspection and capillary refill normal Psych Appearance: grossly normal Course Orders Ordered: ED Orders 03/03/21 11:00 Basic Metabolic Panel Stat Complete Blood Count AUTO DIFF Stat Discontinued Medications Sodium Chloride (Normal Saline 0.9%) 1,000 mls @ 1,000 mls/hr IV BOLUS ONE Stop: 03/03/21 11:56 Last Infusion: 03/03/21 12:03 Dose: 0 mls/hr Documented by: Admin: 03/03/21 11:39 Dose: 1,000 mls/hr Documented by: AMBER Vital Signs Vital signs: Vital Signs - 8 hr 03/03/21 11:00 03/03/21 11:07 03/03/21 11:30 Temperature 97.9 F Pulse Rate 101 H 102 H 94 H Respiratory Rate 19 16 22 Blood Pressure 101/54 L Pulse Oximetry 93 95 93 03/03/21 11:39 03/03/21 12:00 03/03/21 12:30 Temperature Pulse Rate 93 H 93 H 93 H Respiratory Rate 21 20 21 Blood Pressure 98/51 L 104/56 L 97/51 L Pulse Oximetry 93 Medical Decision Making Medical Records Medical records reviewed: Yes I reviewed the patient's medical records. Lab Data Lab results reviewed: Yes I reviewed the patient's lab results. Result diagrams: 03/03/21 11:00 03/03/21 11:00 Labs: Lab Results 03/03/21 03/03/21 Range/Units 11:00 11:00 WBC 6.8 (4.5-11.0) X10^3/uL RBC 4.05 L (4.5-5.9) X10^6/uL Hgb 9.4 L (13.5-17.5) g/dL Hct 29.1 L (41-53) % MCV 71.9 L (80-100) fL MCH 23.1 L (26-34) PG MCHC 32.1 (30-36) % RDW 21.2 H (11.6-14.8) % Plt Count 634 H (150-400) X10^3/uL Neut % (Auto) Not Reportable Lymph % (Auto) Not Reportable [place] % (Auto) Not Reportable Eos % (Auto) Not Reportable Baso % (Auto) Not Reportable Lymph # (Auto) Not Reportable [place] # (Auto) Not Reportable Baso # (Auto) Not Reportable Total Counted 100 Seg Neutrophils % 61.0 (38-70) % Band Neutrophils % 10.0 H (3-7) % Lymphocytes % (Manual) 14.0 L (25-45) % Atypical Lymphs % 1.0 H ( - 0) % Monocytes % (Manual) 13.0 H (2-11) % Eosinophils % (Manual) 1.0 L (2-4) % Neutrophils # (Manual) 4828 (8966-1139) /uL RBC Morphology Not Reportable Anisocytosis 2+ H Sodium 133 L (137-145) mmol/L Potassium 4.0 (3.4-5.1) mmol/L Chloride 105 (98-107) mmol/L Carbon Dioxide 20 L (22-32) mmol/L BUN 17 (9-20) mg/dL Creatinine 0.79 (0.66-1.25) mg/dL Estimated GFR > 60.0 (>60) mL/min BUN/Creatinine Ratio 21.5 (6-22) Glucose 122 H (80-110) mg/dL Calcium 8.2 L (8.4-10.2) mg/dL MDM Narrative Medical decision making narrative: Patient's labs are unremarkable. He states that he does feel better after the fluids and feels like he can be discharged home. Will have him continue all of his medications as directed and keep all of his scheduled medical appointments. Discharge Plan Departure Patient Disposition: Home Clinical Impression: Fatigue Instructions: DI for Fatigue Activity Restrictions/Additional Instructions: Continue all of your medications as directed and keep all of your scheduled medical appointments. Contact your primary doctor for a follow-up. Return to the emergency department for any new or worsening symptoms Prescriptions: No Action atorvastatin [Lipitor] 10 mg tablet 10 mg PO HS Qty: 90 RF: 3 omeprazole 40 mg capsule,delayed release(DR/EC) 40 mg PO DAILY Qty: 60 RF: 3 fluoride (sodium) 1.1 % gel 1 applic PO BEDTIME RF: 0 levothyroxine 125 mcg tablet 125 mcg PO DAILY RF: 0 cevimeline 30 mg capsule 1 cap PO TID Qty: 270 RF: 3 tamsulosin [Flomax] 0.4 mg Capsule 0.4 mg PO DAILY Qty: 90 RF: 3 docusate sodium 100 mg capsule 100 mg PO BID Qty: 60 RF: 0 Referrals: Taran Hernandez MD [Primary Care Provider] -
[2021-03-03 11:08] LABS: Add Manual Diff / Slide Review YES; Hematocrit 29.1 % (41-53); Hemoglobin 9.4 g/dL (13.5-17.5); Mean Corpuscular HGB Conc 32.1 % (30-36); Mean Corpuscular Hemoglobin 23.1 PG (26-34); Mean Corpuscular Volume 71.9 fL (80-100); Platelet Count 634 X10^3/uL (150-400); Red Blood Cell Count 4.05 X10^6/uL (4.5-5.9); Red Cell Distribution Width 21.2 % (11.6-14.8); White Blood Cell Count 6.8 X10^3/uL (4.5-11.0)
[2021-03-03 11:22] LABS: BUN Creatinine Ratio 21.5 (6-22); Blood Urea Nitrogen 17 mg/dL (9-20); Calcium 8.2 mg/dL (8.4-10.2); Carbon Dioxide 20 mmol/L (22-32); Chloride 105 mmol/L (98-107); Estimated Glomerular Filt Rate > 60.0 mL/min (>60); Glucose 122 mg/dL (80-110); HEMOLYSIS < 15 (0-50); Sodium 133 mmol/L (137-145)
[2021-03-03 11:30] LABS: Anisocytosis 2+; Neutrophils Absolute Manual 4828 /uL (3000-5900); Total Cells Counted 100
[2021-03-03] MEDS: SODIUM CHLORIDE 0.9% 1,000 ML 1000 ML IV (11:39)
== END 2021-03-03 14:02 | disposition home or self-care (01) ==
PROVIDERS: Emergency Provider Emergency Medicine; Family Provider Family Medicine; PCP Internal Medicine
DX: R53.83 Other fatigue (principal); Z92.21 Personal history of antineoplastic chemotherapy
CPT/HCPCS: 36415; 80048; 85007; 85025; 99283; 99284